=== PATIENT | male | born 1970 | race Two or more races ===

== ENCOUNTER 2020-03-05 06:17 | Outpatient (REF) | payer OTHER, SELFPAY ==
[2020-03-05 07:38] LABS: MANUAL DIFF FLAG NO
[2020-03-05 07:47] LABS: Basophils Percent Auto 0.4 % (0-2); Eosinophils Absolute Auto 0.2 X10*3/uL (0.0-0.4); Eosinophils Percent Auto 2.8 % (0-4); Hematocrit 42.5 % (42-52); Hemoglobin 13.9 g/dl (14.0-18.0); Imm Gran Abs Auto 0.02 X10*3/uL (0.00-0.03); Imm Gran Pct Auto 0.3 % (0.0-0.4); Lymphocytes Absolute Auto 2.2 X10*3/uL (1.2-4.9); Lymphocytes Percent Auto 31.7 % (20-40); Mean Corpuscular HGB Conc 32.7 g/dl (31.0-36.0); Mean Corpuscular Hemoglobin 28.8 pg (27.0-33.0); Mean Platelet Volume 10.7 fL (9.4-12.4); Monocytes Absolute Auto 0.7 X10*3/uL (0.1-1.2); Monocytes Percent Auto 9.5 % (2-11); Neutrophils Absolute Auto 3.8 X10*3/uL (2.0-8.3); Neutrophils Percent Auto 55.3 % (45-73); Platelet Count 198 X10*3/uL (160-400); Red Blood Count 4.83 X10*6/uL (4.60-5.80); Red Cell Distribution Width 14.7 % (11.0-16.0); White Blood Count 6.9 X10*3/uL (4.8-10.8)
[2020-03-05 08:18] LABS: Alanine Aminotransferase 26 U/L (0-40); Albumin Level 4.4 g/dL (3.5-5.0); Alkaline Phosphatase 75 U/L (39-117); Anion Gap 13 (12-20); Aspartate Amino Transferase 23 U/L (5-37); Bilirubin Total 0.5 mg/dL (0.0-1.0); Blood Urea Nitrogen 11 mg/dL (9-16); Calcium 8.9 mg/dL (8.4-10.2); Carbon Dioxide 28 mmol/L (22-29); Chloride 105 mmol/L (96-108); Cholesterol 97 mg/dL; Estimated Glomerular Filt Rate > 60; Glucose Fasting 103 mg/dL (60-99); HDL Cholesterol 31 mg/dL; LDL Cholesterol Calculated 56 mg/dl; Potassium 3.7 mmol/l (3.3-5.1); Sodium 142 mmol/L (135-145); Total Protein 7.2 g/dL (6.5-8.0); Triglycerides 54 mg/dL
[2020-03-05 08:34] LABS: Prostate Specific Antigen 0.59 ng/mL (<0.05-4.0); Thyroid Stimulating Hormone 1.93 mIU/mL (0.32-4.0)
== END 2020-03-05 06:18 | disposition home or self-care (01) ==
LOC: HO.LAB 06:17
PROVIDERS: Visit Provider Physician Assistant
DX: I10 Essential (primary) hypertension (principal); Z12.5 Encounter for screening for malignant neoplasm of prostate
CPT/HCPCS: 36415; 80053; 80061; 84153; 84443; 85025

== ENCOUNTER 2020-07-09 06:24 | Outpatient (REF) | payer OTHER, SELFPAY ==
[2020-07-09 07:17] LABS: MANUAL DIFF FLAG NO
[2020-07-09 07:27] LABS: Basophils Percent Auto 0.3 % (0-2); Eosinophils Absolute Auto 0.2 X10*3/uL (0.0-0.4); Eosinophils Percent Auto 2.4 % (0-4); Hematocrit 43.7 % (42-52); Hemoglobin 14.2 g/dl (14.0-18.0); Imm Gran Abs Auto 0.02 X10*3/uL (0.00-0.03); Imm Gran Pct Auto 0.3 % (0.0-0.4); Lymphocytes Absolute Auto 2.2 X10*3/uL (1.2-4.9); Lymphocytes Percent Auto 30.3 % (20-40); Mean Corpuscular HGB Conc 32.5 g/dl (31.0-36.0); Mean Corpuscular Hemoglobin 28.1 pg (27.0-33.0); Mean Corpuscular Volume 86.5 fL (80-98); Mean Platelet Volume 10.3 fL (9.4-12.4); Monocytes Absolute Auto 0.5 X10*3/uL (0.1-1.2); Monocytes Percent Auto 6.7 % (2-11); Neutrophils Absolute Auto 4.3 X10*3/uL (2.0-8.3); Platelet Count 212 X10*3/uL (160-400); Red Blood Count 5.05 X10*6/uL (4.60-5.80); Red Cell Distribution Width 14.4 % (11.0-16.0); White Blood Count 7.2 X10*3/uL (4.8-10.8)
[2020-07-09 07:35] LABS: Estimated Average Glucose 126 mg/dL; Hemoglobin A1C 151.3801 umol/L
[2020-07-09 07:50] LABS: Alanine Aminotransferase 37 U/L (0-40); Albumin Level 4.6 g/dL (3.5-5.0); Alkaline Phosphatase 90 U/L (39-117); Anion Gap 12 (12-20); Aspartate Amino Transferase 25 U/L (5-37); Bilirubin Total 0.6 mg/dL (0.0-1.0); Blood Urea Nitrogen 11 mg/dL (9-16); Calcium 9.3 mg/dL (8.4-10.2); Carbon Dioxide 28 mmol/L (22-29); Chloride 105 mmol/L (96-108); Cholesterol 119 mg/dL; Estimated Glomerular Filt Rate > 60; Glucose Fasting 110 mg/dL (60-99); HDL Cholesterol 36 mg/dL; LDL Cholesterol Calculated 69 mg/dl; Sodium 141 mmol/L (135-145); Total Protein 7.6 g/dL (6.5-8.0); Triglycerides 74 mg/dL
[2020-07-09 08:09] LABS: HBS Num1 39.66 mIU/mL (0-7.99); HIV AB/AG Nonreactive (Nonreactive); HIV Num 1 0.13 S/CO (0.00-0.99); ~Hepatitis B Surface Antibody REACTIVE (Nonreactive)
[2020-07-09 08:10] LABS: HBsAGNum1 0.18 S/CO (0.00-0.99); Hepatitis B Surface Antigen Negative (Negative); ~HepC Num1 0.11 S/CO (0.00-0.79); ~Hepatitis C Antibody Nonreactive (Nonreactive)
[2020-07-09 08:11] LABS: Syphilis Screen Nonreactive (Nonreactive)
[2020-07-09 08:13] LABS: TSH reflex Free T4 3.18 uIU/mL (0.32-4.0)
[2020-07-09 09:13] LABS: HBc Num2 11.47 S/CO; HBc Num3 11.58 S/CO; Hepatitis B Core Antibody Reactive (Nonreactive)
== END 2020-07-09 06:25 | disposition home or self-care (01) ==
LOC: HO.LAB 06:24
PROVIDERS: PCP Physician Assistant; Visit Provider Physician Assistant
DX: E78.00 Pure hypercholesterolemia, unspecified (principal); I10 Essential (primary) hypertension; Z11.3 Encounter for screening for infections with a predominantly sexual mode of transmission
CPT/HCPCS: 36415; 80053; 80061; 83036; 84443; 85025; 86704; 86706; 86780; 86803; 87340; 87389

== ENCOUNTER 2020-08-18 12:01 | Outpatient (REF) | payer OTHER, SELFPAY ==
[2020-08-18 12:20] LABS: COVID-19 Test Negative (Negative); IDNOW Serial# 08D9AD1C
== END 2020-08-18 12:02 | disposition home or self-care (01) ==
LOC: HO.LAB 12:01
PROVIDERS: Visit Provider Internal Medicine
DX: Z20.822 Contact with and (suspected) exposure to COVID-19 (principal)
CPT/HCPCS: 36415; 87635; C9803

== ENCOUNTER 2021-01-25 05:55 | Outpatient (REF) | payer OTHER, SELFPAY ==
[2021-01-25 07:49] LABS: Hematocrit 44.1 % (42-52); Hemoglobin 14.4 g/dl (14.0-18.0); Mean Corpuscular HGB Conc 32.7 g/dl (31.0-36.0); Mean Corpuscular Hemoglobin 28.2 pg (27.0-33.0); Mean Corpuscular Volume 86.5 fL (80-98); Mean Platelet Volume 10.8 fL (9.4-12.4); Platelet Count 203 X10*3/uL (160-400); Red Cell Distribution Width 14.5 % (11.0-16.0); White Blood Count 8.9 X10*3/uL (4.8-10.8)
[2021-01-25 07:59] LABS: Estimated Average Glucose 126 mg/dL; Hemoglobin A1C 151.7262 umol/L
[2021-01-25 08:15] LABS: Alanine Aminotransferase 27 U/L (0-40); Albumin Level 4.3 g/dL (3.5-5.0); Alkaline Phosphatase 88 U/L (39-117); Anion Gap 11 (12-20); Aspartate Amino Transferase 20 U/L (5-37); Bilirubin Total 0.8 mg/dL (0.0-1.0); Blood Urea Nitrogen 11 mg/dL (9-16); Calcium 9.1 mg/dL (8.4-10.2); Carbon Dioxide 27 mmol/L (22-29); Chloride 105 mmol/L (96-108); Cholesterol 97 mg/dL; Estimated Glomerular Filt Rate > 60; Glucose Fasting 105 mg/dL (60-99); HDL Cholesterol 32 mg/dL; LDL Cholesterol Calculated 51 mg/dl; Potassium 3.6 mmol/L (3.3-5.1); Sodium 139 mmol/L (135-145); Total Protein 7.2 g/dL (6.5-8.0); Triglycerides 74 mg/dL
[2021-01-25 10:13] LABS: Creatinine Urine 242.96 mg/dL; Microalbum/Creatinine Ratio Ur 116.4 ug/mg cr
== END 2021-01-25 05:56 | disposition home or self-care (01) ==
LOC: HO.LAB 05:55
PROVIDERS: PCP Physician Assistant; Visit Provider Physician Assistant
DX: I10 Essential (primary) hypertension (principal); R73.09 Other abnormal glucose
CPT/HCPCS: 36415; 80053; 80061; 82043; 83036; 85027

== ENCOUNTER → 2021-03-09 13:39 | Outpatient (REF) | payer OTHER, SELFPAY | LOC: HO.SL 13:39 | PROVIDERS: PCP Physician Assistant; Visit Provider Physician Assistant | DX: G47.33 Obstructive sleep apnea (adult) (pediatric) (principal) | CPT/HCPCS: 95806 ==

== ENCOUNTER → 2021-03-23 14:59 | Outpatient (BNVA) | payer OTHER, SELFPAY | PROVIDERS: PCP Physician Assistant; Visit Provider Internal Medicine | DX: G47.33 Obstructive sleep apnea (adult) (pediatric) (principal); G47.34 Idiopathic sleep related nonobstructive alveolar hypoventilation; E66.01 Morbid (severe) obesity due to excess calories; Z87.891 Personal history of nicotine dependence | CPT/HCPCS: 99202 ==

== ENCOUNTER 2021-05-08 10:52 | Emergency (ER) | payer OTHER, SELFPAY ==
--- NOTE | ~2021-05-08 | XR_ITS ---
EXAMINATION: XR HAND, RIGHT CLINICAL INFORMATION: Decreased range of motion and hand swelling COMPARISON: None TECHNIQUE: PA, lateral, and oblique views of the right hand. FINDINGS: The bones and soft tissues are normal. No fracture. Alignment is anatomic. Joint spaces are maintained. No erosions or soft tissue calcifications. XR/XR hand RT min 3V IMPRESSION: Normal right hand.
[2021-05-08 16:30] VITALS: BP 178/93; PULSE 76; TEMP 36.3; O2SAT 96; BMI 41.3
--- NOTE | 2021-05-08 17:32 | ED.EXTPRO ---
HPI - Extremity Problem General Chief complaint: Extremity Injury, Upper Stated complaint: Thumb pain Time Seen by Provider: 05/08/21 17:32 Source: patient Mode of arrival: ambulatory Limitations: no limitations History of Present Illness HPI Narrative: This is a 50-year-old male past medical history significant for coronary artery disease, obesity, hypertension, [place], hyperlipidemia presenting to the emergency department a concern of right-sided 1st digit swelling, pain warmth X2 days. Patient tells me that this started yesterday, all of a sudden and has been progressively worsening. He denies any trauma to the area. He tells me that he frequently works with his hands, and he has a lot of calluses and small little cuts on his hands. He is able to move finger however it is painful. No wrist pain. Patient denies fevers, chills, nausea, vomiting, chest pain, shortness of breath, weakness, abdominal pain. No hx of gout MD Complaint: joint swelling (right first digit ) and joint paint Onset (ago): day(s) (2) Pain Consistency: constant Location: right Severity scale (1-10): 5 Quality: aching and constant Radiation: none Relieving factors: nothing Exacerbating factors: nothing Associated symptoms: denies other symptoms Related Data Previous Rx's Medication Instructions Recorded clotrimazole-betamethasone 1 1 appl TOPICAL BID #45 g 04/20/20 %-0.05 % topical cream aspirin 81 mg tablet,delayed 81 mg PO DAILY 90 Days #90 tab 07/28/20 release atorvastatin 20 mg tablet 20 mg PO DAILY #90 tab 07/28/20 omeprazole 40 mg capsule,delayed 40 mg PO DAILY 90 Days #90 cap 07/28/20 release amlodipine 10 mg tablet 10 mg PO DAILY 90 Days #90 tab 11/11/20 blood pressure monitor (Blood #1 ea 11/11/20 Pressure Kit) metformin 500 mg tablet 500 mg PO DAILY 90 Days #90 tab 11/11/20 losartan 100 1 tab PO DAILY 90 Days #90 tab 02/14/21 mg-hydrochlorothiazide 12.5 mg tablet cephalexin 500 mg tablet 500 mg PO Q6H 10 Days #40 tab 05/08/21 doxycycline hyclate 100 mg capsule 100 mg PO BID 10 Days #20 cap 05/08/21 naproxen 500 mg tablet 500 mg PO BID PRN #14 tab 05/08/21 Allergies Allergy/AdvReac Type Severity Reaction Status Date / Time No Known Allergies Allergy Verified 03/23/21 15:07 [No Known Allergies*] Review of Systems Review of Systems: Constitutional : No Fever, No Chills, Cardiovascular : No Chest Pain, No SOB Respiratory : No Dyspnea Gastrointestinal : No abdominal pain Musculoskeletal : + Joint Swelling & pain Skin : No rash, No skin laceration, + errythema to right first digit Neuro : No Weakness, No Numbness Psych : No SI/HI Yes all other systems are reviewed and are negative [facility] [place] Past Medical History Attestation statement: The following information was validated with the patient. Source: old records reviewed and nursing notes reviewed Medical History Morbid obesity Nocturnal hypoxemia [place] (obstructive sleep apnea) Tinea Surgical History No pertinent past surgical history Family History Family History Mother Brain tumor Brother Substance abuse Social History Social History Housing: Apartment Alcohol intake: current Alcohol intake frequency: holidays/special occasions only Patient Tobacco Use Status: Former Tobacco user e-Cigarette/Vaping Use: Never Used Second Hand Smoke Exposure: Yes Advance Directives: No Advance Directives Information Provided: No service: No Current occupational status: employed 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 Not symptomatic Appearance: Alert.? Oriented X3.? No acute distress.? Head: Normocephalic, atraumatic, no step-offs or deformities Neck: Normal inspection.? Neck supple.? CVS: Normal heart rate and rhythm.? Pulses normal.? Respiratory: No respiratory distress.? Breath sounds normal.? Abdomen: Soft and nontender.? Skin: Skin warm and dry.? Normal skin color.? Normal skin turgor.? Extremities: 5/5 strength to bilateral upper and lower extremities + Right first digit appears edematous, erythematous and warm to the touch, full range of motion good capillary refill. Left digits within normal limits with full range of motion, no overlying skin changes. Bilateral wrists with full range of motion pain free. Back: No midline tenderness, no C-spine tenderness, full range of motion Course Reevaluation(s) Reevaluation #1: I will discharge patient home on Keflex and doxycycline for cellulitis. I have also advised him to take nonsteroidal anti-inflammatory medications. Patient is safe for discharge home with PCP follow-up. I have given him strict return precautions. Time: 17:57 MDM - Extremity (Nontraumatic) MDM Narrative Medical decision making narrative: 1750 50 yo male presents to ED with atraumatic right first digit pain, swelling, errythema and warmth. Upon PE the right first digit appears edematous, erythematous and warm to the touch, full range of motion good capillary refill. Left digits within normal limits with full range of motion, no overlying skin changes. Bilateral wrists with full range of motion pain free. VSS, slightly hypertensive. Prior to my exam an Xray had been ordered WNL. Medical Records Attestation: I reviewed the patient's medical records. Lab Data Attestation: I reviewed the patient's lab results. Imaging Data Right hand x-ray: Attestation: I personally reviewed and interpreted this imaging study as follows: Radiologist's impression: FINDINGS: The bones and soft tissues are normal. No fracture. Alignment is anatomic. Joint spaces are maintained. No erosions or soft tissue calcifications.? XR/XR hand RT min 3V IMPRESSION: Normal right hand. Critical Care Time Critical Care Time Critical Care Time: No Discharge Plan Discharge Clinical Impression: Cellulitis Patient Disposition: Home, Self-Care Instructions: Cellulitis (ED), Warm Compress or Soak (ED) Additional Instructions: Take your medications as prescribed. If you were prescribed antibiotics today, it is important that you take your medication to their entirety, do not skip any doses, do not finish them early. Follow-up with your primary care provider this week. Return to the emergency department with new or worsening symptoms. In case of emergency call 911 Prescriptions: New doxycycline hyclate 100 mg capsule 100 mg PO BID 10 Days Qty: 20 RF: 0 cephalexin 500 mg tablet 500 mg PO Q6H 10 Days Qty: 40 RF: 0 naproxen 500 mg tablet 500 mg PO BID PRN (Reason: pain) Qty: 14 RF: 0 No Action clotrimazole-betamethasone 1-0.05 % cream 1 appl topical BID Qty: 45 RF: 1 losartan-hydrochlorothiazide 100-12.5 mg tablet 1 tab PO DAILY 90 Days Qty: 90 RF: 2 omeprazole 40 mg capsule,delayed release(DR/EC) 40 mg PO DAILY 90 Days Qty: 90 RF: 2 atorvastatin 20 mg tablet 20 mg PO DAILY Qty: 90 RF: 2 aspirin 81 mg tablet,delayed release (DR/EC) 81 mg PO DAILY 90 Days Qty: 90 RF: 2 amlodipine 10 mg tablet 10 mg PO DAILY 90 Days Qty: 90 RF: 1 metformin 500 mg tablet 500 mg PO DAILY 90 Days Qty: 90 RF: 2 (DME) blood pressure monitor [Blood Pressure Kit] Kit See Rx Instructions .ROUTE .MEDSUPPLY Qty: 1 RF: 0 Referrals: Husam Beatty PA-C [Primary Care Provider] - 2 days Stand Alone Forms: Work/School Release
[2021-05-08 18:38] LABS: COVID-19 Test Negative (Negative)
== END 2021-05-08 18:52 | disposition home or self-care (01) ==
LOC: HO.ED 17:56
PROVIDERS: Emergency Provider Emergency Medicine Emergency Medical Services; PCP Physician Assistant
DX: L03.011 Cellulitis of right finger (principal); M79.644 Pain in right finger(s); I10 Essential (primary) hypertension
CPT/HCPCS: 36415; 73130; 87635; 99283

== ENCOUNTER → 2021-07-01 20:51 | Outpatient (REF) | payer OTHER, SELFPAY | LOC: HO.SL 20:51 | PROVIDERS: PCP Physician Assistant; Visit Provider Physician Assistant | DX: G47.33 Obstructive sleep apnea (adult) (pediatric) (principal); G47.34 Idiopathic sleep related nonobstructive alveolar hypoventilation | CPT/HCPCS: 95811 ==

== ENCOUNTER 2022-01-06 06:23 | Outpatient (REF) | payer OTHER, SELFPAY ==
[2022-01-06 07:21] LABS: Hematocrit 44.1 % (42.0-52.0); Hemoglobin 14.3 g/dl (14.0-18.0); Mean Corpuscular HGB Conc 32.4 g/dl (31.0-36.0); Mean Corpuscular Hemoglobin 27.9 pg (27.0-33.0); Mean Corpuscular Volume 86.1 fL (80.0-98.0); Mean Platelet Volume 10.4 fL (9.4-12.4); Platelet Count 215 X10*3/uL (160-400); Red Blood Count 5.12 X10*6/uL (4.60-5.80); Red Cell Distribution Width 14.7 % (11.0-16.0); White Blood Count 8.7 X10*3/uL (4.8-10.8)
[2022-01-06 07:44] LABS: Alanine Aminotransferase 30 U/L (0-40); Albumin Level 4.3 g/dL (3.5-5.0); Alkaline Phosphatase 87 U/L (39-117); Anion Gap 15 (12-20); Aspartate Amino Transferase 22 U/L (5-37); Bilirubin Total 0.6 mg/dL (0.0-1.0); Blood Urea Nitrogen 9 mg/dL (9-16); Calcium 8.8 mg/dL (8.4-10.2); Carbon Dioxide 28 mmol/L (22-29); Chloride 101 mmol/L (96-108); Cholesterol 95 mg/dL; Estimated Glomerular Filt Rate > 60; Glucose Fasting 121 mg/dL (60-99); HDL Cholesterol 34 mg/dL; LDL Cholesterol Calculated 45 mg/dl; Potassium 3.7 mmol/L (3.3-5.1); Sodium 140 mmol/L (135-145); Total Protein 7.3 g/dL (6.5-8.0); Triglycerides 82 mg/dL
[2022-01-06 07:48] LABS: Estimated Average Glucose 126 mg/dL
[2022-01-06 08:07] LABS: Prostate Specific Antigen Scr 0.69 ng/mL (<0.05-4.0); TSH reflex Free T4 1.83 uIU/mL (0.32-4.0)
== END 2022-01-06 06:24 | disposition home or self-care (01) ==
LOC: HO.LAB 06:23
PROVIDERS: PCP Physician Assistant; Visit Provider Physician Assistant
DX: Z12.5 Encounter for screening for malignant neoplasm of prostate (principal); I10 Essential (primary) hypertension; E78.00 Pure hypercholesterolemia, unspecified; R73.09 Other abnormal glucose
CPT/HCPCS: 36415; 80053; 80061; 83036; 84153; 84443; 85027

== ENCOUNTER 2022-07-06 06:54 | Outpatient (REF) | payer OTHER, SELFPAY ==
[2022-07-06 08:12] LABS: Alanine Aminotransferase 25 U/L (0-40); Albumin Level 4.4 g/dL (3.5-5.0); Alkaline Phosphatase 96 U/L (39-117); Anion Gap 16 (12-20); Aspartate Amino Transferase 18 U/L (5-37); Bilirubin Total 0.5 mg/dL (0.0-1.0); Blood Urea Nitrogen 15 mg/dL (9-16); Calcium 9.5 mg/dL (8.4-10.2); Carbon Dioxide 28 mmol/L (22-29); Chloride 104 mmol/L (96-108); Cholesterol 108 mg/dL; Estimated Glomerular Filt Rate > 60; Glucose Fasting 108 mg/dL (60-99); HDL Cholesterol 22 mg/dL; LDL Cholesterol Calculated 41 mg/dl; Potassium 3.8 mmol/L (3.3-5.1); Sodium 144 mmol/L (135-145); Total Protein 7.4 g/dL (6.5-8.0); Triglycerides 226 mg/dL
[2022-07-06 08:18] LABS: TSH reflex Free T4 2.77 uIU/mL (0.32-4.0)
== END 2022-07-06 06:55 | disposition home or self-care (01) ==
LOC: HO.LAB 06:54
PROVIDERS: PCP Physician Assistant; Visit Provider Nurse Practitioner Family
DX: E78.5 Hyperlipidemia, unspecified (principal); R73.09 Other abnormal glucose; I10 Essential (primary) hypertension
CPT/HCPCS: 36415; 80053; 80061; 84443

== ENCOUNTER 2022-08-07 06:24 | Outpatient (REF) | payer OTHER, SELFPAY ==
[2022-08-07 08:13] LABS: Estimated Average Glucose 134 mg/dL; Hemoglobin A1c % 6.3 %
[2022-08-07 08:28] LABS: Creatinine Urine 219.67 mg/dL; Microalbum/Creatinine Ratio Ur 182.5 ug/mg cr
[2022-08-07 08:36] LABS: Alanine Aminotransferase 44 U/L (0-40); Albumin Level 4.3 g/dL (3.5-5.0); Alkaline Phosphatase 78 U/L (39-117); Anion Gap 14 (12-20); Aspartate Amino Transferase 38 U/L (5-37); Bilirubin Total 0.6 mg/dL (0.0-1.0); Blood Urea Nitrogen 9 mg/dL (9-16); Calcium 9.2 mg/dL (8.4-10.2); Carbon Dioxide 27 mmol/L (22-29); Chloride 104 mmol/L (96-108); Cholesterol 90 mg/dL; Estimated Glomerular Filt Rate > 60; Glucose Fasting 113 mg/dL (60-99); HDL Cholesterol 25 mg/dL; LDL Cholesterol Calculated 50 mg/dl; Potassium 3.6 mmol/L (3.3-5.1); Sodium 141 mmol/L (135-145); Triglycerides 78 mg/dL
== END 2022-08-07 06:25 | disposition home or self-care (01) ==
LOC: HO.LAB 06:24
PROVIDERS: Absent Provider Physician Assistant; PCP Physician Assistant; Visit Provider Nurse Practitioner Family
DX: K21.9 Gastro-esophageal reflux disease without esophagitis (principal); R73.03 Prediabetes
CPT/HCPCS: 36415; 80053; 80061; 82043; 83036; 87338

== ENCOUNTER 2022-09-29 07:46 | Outpatient (REF) | payer OTHER, SELFPAY ==
--- NOTE | ~2022-09-29 | US_ITS ---
EXAMINATION: ULTRASOUND RENAL WITH DOPPLER CLINICAL INFORMATION: Difficult to control hypertension. Evaluate for renal artery stenosis. COMPARISON: None. TECHNIQUE: Real-time grayscale, color Doppler, and duplex Doppler evaluation of the kidneys and renal vasculature was performed. FINDINGS: RENAL MEASUREMENTS: Right: 12.9 x 7.1 x 6.3 cm (Sag x AP x TV) Left: 13.2 x 7.0 x 5.2 cm (Sag x AP x TV) RIGHT KIDNEY: The kidney is normal in size, contour, and echogenicity. Renal cortical thickness is normal. No renal calculi or hydronephrosis. There is a 1.5 cm simple cyst in the medial kidney. No follow-up imaging recommended. LEFT KIDNEY: The kidney is normal in size, contour, and echogenicity. Renal cortical thickness is normal. No renal calculi or hydronephrosis. 1.9 cm simple cyst in the upper kidney. No follow-up imaging is recommended. 7.6 cm incompletely characterized septated cyst in the lower kidney. DOPPLER INTERROGATION: Aorta: 119 cm/sec Right Main Renal Artery: Proximal: 66 cm/sec Mid: 122 cm/sec Distal: 52 cm/sec Left Main Renal Artery: Proximal: 133 cm/sec Mid: 117 cm/sec Distal: 81 cm/sec Renal-Aortic Ratio (RAR): Right: Aortic velocity greater than 100 cm/s so renal aortic ratio not used. Left: Aortic velocity greater than 100 cm/s so renal aortic ratio not used. Segmental Resistive Indices: Right: 0.58-0.66. Left: 0.63-0.73. Renal Veins: Right: Patent with normal waveform. Left: Patent with normal waveform. US/US renal doppler IMPRESSION: No evidence of hemodynamically significant renal artery stenosis. 7.6 cm incompletely characterized septated cyst in the lower kidney. Recommend further evaluation with MRI or CT of the abdomen without and with contrast for Bosniak classification to guide subsequent management.
--- NOTE | ~2022-09-29 | US_ITS ---
EXAMINATION: ULTRASOUND RENAL WITH DOPPLER CLINICAL INFORMATION: Difficult to control hypertension. Evaluate for renal artery stenosis. COMPARISON: None. TECHNIQUE: Real-time grayscale, color Doppler, and duplex Doppler evaluation of the kidneys and renal vasculature was performed. FINDINGS: RENAL MEASUREMENTS: Right: 12.9 x 7.1 x 6.3 cm (Sag x AP x TV) Left: 13.2 x 7.0 x 5.2 cm (Sag x AP x TV) RIGHT KIDNEY: The kidney is normal in size, contour, and echogenicity. Renal cortical thickness is normal. No renal calculi or hydronephrosis. There is a 1.5 cm simple cyst in the medial kidney. No follow-up imaging recommended. LEFT KIDNEY: The kidney is normal in size, contour, and echogenicity. Renal cortical thickness is normal. No renal calculi or hydronephrosis. 1.9 cm simple cyst in the upper kidney. No follow-up imaging is recommended. 7.6 cm incompletely characterized septated cyst in the lower kidney. DOPPLER INTERROGATION: Aorta: 119 cm/sec Right Main Renal Artery: Proximal: 66 cm/sec Mid: 122 cm/sec Distal: 52 cm/sec Left Main Renal Artery: Proximal: 133 cm/sec Mid: 117 cm/sec Distal: 81 cm/sec Renal-Aortic Ratio (RAR): Right: Aortic velocity greater than 100 cm/s so renal aortic ratio not used. Left: Aortic velocity greater than 100 cm/s so renal aortic ratio not used. Segmental Resistive Indices: Right: 0.58-0.66. Left: 0.63-0.73. Renal Veins: Right: Patent with normal waveform. Left: Patent with normal waveform. US/US renal BI IMPRESSION: No evidence of hemodynamically significant renal artery stenosis. 7.6 cm incompletely characterized septated cyst in the lower kidney. Recommend further evaluation with MRI or CT of the abdomen without and with contrast for Bosniak classification to guide subsequent management.
== END 2022-09-29 07:47 | disposition home or self-care (01) ==
LOC: HO.US 07:46
PROVIDERS: PCP Physician Assistant; Visit Provider Physician Assistant
DX: I10 Essential (primary) hypertension (principal); Z79.899 Other long term (current) drug therapy
CPT/HCPCS: 76775; 93975

== ENCOUNTER → 2022-11-01 10:10 | Outpatient (BNVA) | payer OTHER, SELFPAY | PROVIDERS: PCP Physician Assistant; Visit Provider Urology | DX: N28.1 Cyst of kidney, acquired (principal) | CPT/HCPCS: 99202 ==

== ENCOUNTER 2022-11-20 16:08 | Outpatient (AMB) | payer OTHER, SELFPAY ==
--- NOTE | 2022-11-20 16:09 | A.OFFPC_ITS ---
Vital Signs 11/20/22 16:10 Height 5 ft 9 in Weight 301 lb BMI 44.4 BP 142/90 H Blood Pressure Location Lt brachial Position Sitting Pulse 80 Pulse Source Pulse Oximeter Temp Source Skin Pulse Oximetry (%) 96 Oxygen Delivery Method Room Air Intake Visit Reasons: PE Intake Note: Patient is here today for a physical. 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 Required: No Allergies No Known Allergies [No Known Allergies*] Allergy (Verified 11/20/22 16:23) Medication List - Last Reconciled 11/20/22 by Husam Beatty PA-C amlodipine 10 mg PO DAILY 90 days aspirin 81 mg PO DAILY 90 days atorvastatin 20 mg PO DAILY blood pressure kit-extra large As directed CPAP (CPAP Machine/Device) As directed doxazosin 2 mg PO DAILY 90 days losartan-hydrochlorothiazide 100-25 mg 1 tab PO DAILY 90 days metformin 500 mg PO DAILY 90 days omeprazole 40 mg PO DAILY 90 days Tobacco use date assessed: 11/20/22 Dental Screening Dental Screen Date: 11/20/22 Did you have a dental visit in the last 12 months?: No Did you have a dental problem in the last 6 months where you did not have access to dental care?: No HPI PE HPI Details Patient is a 52-year-old male here today for routine annual physical. ? Patient has a past medical history significant for HTN, CAD, obesity, GERD, Recently found to have a complex renal cyst on recent ultrasound, has followed up with Urology in recommend CT abdomen pelvis for further evaluation. Of does does have microalbuminuria .. ? Obesity:? he reports he has been trying to be more physically active and deaf to better eating habits.? Has lost a small amount of weight since last visit. He has been struggling with nighttime snacking.? unfortunately has been unable to lose any weight since last visit. ? . Hypertension:? Blood pressure slightly elevated today in office though has improved..? Recently started doxazosin 2 mg which has been effective. Unfortunately has not been able to reduce his weight as he has stopped going to the gym. Otherwise denies any chest pain, vision issues, headaches or shortness of breath on exertion. ? .. ? CAD:? Has been feeling well without any chest discomfort, shortness of breath on exertion. ?Patient does report being hospitalized years ago for chest pain and was told he had coronary artery blockage. Thus he was placed on statin therapy and aspirin. .. GERD:? Use omeprazole on a daily basis with good effect. ? .. ? [place]: ? Patient's most recent sleep study showing severe obstructive sleep apnea- titration study showing need for CPAP Now in contact with [facility].? Does have CPAP machine at home though does admit he has only been fairly compliant with its use. .. Colonoscopy :? Had a colonoscopy in 2019 Dr Miller- normal repeat in 10yrs? ( 2028) .. Vaccine:? Up-to-date with tetanus vaccine, Decline COVID Vaccine, UTD PCV Laboratory Tests 01/25/21 08/07/22 08/07/22 06:35 06:35 06:37 Creatinine 0.82 Fasting Glucose 113 H Hemoglobin A1c % AST 38 H ALT 44 H LDL Cholesterol, C alc 50 Urine Microalbumin 283.0 401.0 Stool H. pylori Ag 08/07/22 08/07/22 06:37 08:32 Creatinine Fasting Glucose Hemoglobin A1c % 6.3 AST ALT LDL Cholesterol, C alc Urine Microalbumin Stool H. pylori Ag SEE NOTE A ?? 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 1. Little interest or pleasure in doing things: not at all 2. Feeling down, depressed, or hopeless: not at all 3. Trouble falling or staying asleep, or sleeping too much: not at all 4. Feeling tired or having little energy: not at all 5. Poor appetite or overeating: not at all 6. Feeling bad about yourself - or that you are a failure or have let yourself or your family down: not at all 7. Trouble concentrating on things, such as reading the newspaper or watching television: not at all 8. Moving or speaking so slowly that other people could have noticed. Or the opposite - being so fidgety or restless that you have been moving around a lot more than usual: not at all 9. Thoughts that you would be better off or of hurting yourself in some way: not at all Total score: 0 Depression Screening Interpretation: Negative Source: Developed by Drs. Clint Aguilar, Ellie Arteaga, Daron Decker and colleagues, with an educational alfonso from [employer]. Thrive Questionnaire Date Thrive assessed: 11/20/22 I am a: Patient What is your living situation today?: I have a steady place to live Within the past 12 months, did the food you bought not last and you didn't have the money to get more?: Never true Within the past 12 months, did you worry whether your food would run out before you got money to buy more?: Never true AUDIT C Alcohol Use Questionnaire (AUDIT-C) 1. How often do you have a drink containing alcohol?: Monthly or less 2. How many drinks containing alcohol do you have on a typical day when you are drinking?: 1 or 2 3. How often do you have six or more drinks on one occasion?: Never Total Score: 1 Score Reviewed/Action Taken: No MARGRET-7 AMB Questionnaire MARGRET-7 Date MARGRET - 7 assessed: 11/20/22 Feeling nervous, anxious, or on edge: 0 = Not at all Not being able to stop or control worryin = Not at all Worrying too much about different things: 0 = Not at all Trouble relaxin = Not at all Being so restless that it is hard to sit still: 0 = Not at all Becoming easily annoyed or irritable: 0 = Not at all Feeling afraid as if something awful might happen: 0 = Not at all Total MARGRET-7 score (0-4 normal; 5-9 mild; 10-14 moderate; 15-21 severe): 0 Source: Developed by Drs. Clint Aguilar, Ellie Arteaga, Daron Decker and colleagues, with an educational alfonso from [employer]. Review of Systems Const Denies body aches, Denies chills, Denies excessive sweating, Denies fatigue, Denies fever(s) and Denies headache(s) Eyes Denies blurry vision ENT Denies dysphagia, Denies vertigo, Denies dizziness, Denies headache(s), Denies hearing loss and Denies tinnitus Card Denies chest pain, Denies chest pain with activity, Denies syncope, Denies irregular heart rhythm and Denies dyspnea Resp Denies chest congestion, Denies cough, Denies hemoptysis, Denies dyspnea and Denies wheezing GI Denies abdominal pain, Denies melena, Denies hematochezia, Denies coffee ground emesis, Denies dysphagia, Denies diarrhea, Denies nausea and Denies vomiting Denies difficulty urinating, Denies dysuria, Denies urinary frequency, Denies urinary hesitancy and Denies urinary urgency Musc Denies arthralgias, Denies limited range of motion, Denies muscle cramps and Denies muscle weakness Skin/Breast Denies rash and Denies skin ulcer Neuro Denies Abnormal speech present, Denies confusion, Denies vertigo, Denies d izziness, Denies syncope, Denies headache(s), Denies memory loss and Denies seizure-like activity Psych Denies anxiety, Denies confusion, Denies depression, Denies memory loss, Denies panic attacks and Denies paranoia Endo Denies excessive sweating, Denies fatigue, Denies flushing, Denies polydipsia and Denies polyuria Aller/Immun Denies wheezing Physical exam (Primary Care) Vital Signs: Last Vital Signs Pulse 80 11/20/22 16:10 BP 142/90 H 11/20/22 16:10 Pulse Ox 96 11/20/22 16:10 Oxygen Delivery Method Room Air 11/20/22 16:10 BMI result Body Mass Index 44.4 BMI Assessment/Plan discussion: High Tobacco/Smoking Status: Tobacco use Status Tobacco use date assessed 11/20/22 11/20/22 16:14 Patient Tobacco Use Status Former Tobacco user 11/20/22 16:14 e-Cigarette/Vaping Use Never Used 11/20/22 16:14 PHQ-9: PHQ-9 Score PHQ-9: Total score 0 11/20/22 16:25 Depression Screening Interpretation: Negative Thrive Assessment: Date of Thrive Assessment Date Thrive assessed 11/20/22 11/20/22 16:14 Const Other: OBESE General: cooperative, comfortable, no acute distress, alert and awake; No confusion Orientation/consciousness: oriented to person, oriented to place, patient oriented x3 and No confusion HENMT Head: Yes normocephalic Ears: external ears normal and TM's normal bilaterally Face and sinus: No sinus tenderness Mouth: Normal oral and palatal mucosa present and tongue normal Teeth and gingiva: dentition normal and gingiva normal Throat: Yes posterior oropharynx normal, Yes tonsils normal and Yes uvula midline Eyes Conjunctivae: conjunctivae normal Sclerae: sclerae normal Pupils: Equal, round and reactive pupils present EOM: EOMs intact bilaterally Direct Ophthalmoscopy: No no photophobia Neck Neck: Yes no lymphadenopathy, No tender and Yes no JVD Thyroid: Thyroid normal Carotids: no bruits Chest Chest palpation & inspection: no tenderness Resp Effort & Inspection: normal respiratory effort, no audible wheezes, not labored and no stridor Auscultation: no crackles, no rales, no rhonchi and no wheezes Cardio Jugular venous distension: no JVD Rate: regular rate, not bradycardic and not tachycardic Rhythm: regular rhythm Bruits: no carotid bruits Peripheral pulses: Peripheral pulses 2+ throughout GI Inspection: Yes normal to inspection, No abdominal wall ecchymosis and No visible herniation Palpation (GI): Soft to palpation, nontender, no guarding, not rigid and No hepatosplenomegaly present Auscultation: normoactive bowel sounds General: Yes no CVA tenderness Back/Spine/Pelvis Back: no CVA tenderness and No back tenderness Cervical Spine: cervical ROM normal Thoracic/Lumbar Spine: thoracic and lumbar spine normal to inspection, straight leg raise negative bilaterally, No thoraco-lumbar ROM limited and No lumbar spinal tenderness Skin Lesions: no lesions Rashes: no rashes Wounds: no wounds Neuro General: oriented to person, oriented to place, patient oriented x3, CN's II-XI intact bilaterally and No confusion Cranial nerves: Yes Equal, round and reactive pupils present and Yes Normal accommodation reflex present Cognition (Neuro): normal cognition Speech: No Abnormal speech present Gait exam (Neuro): Normal gait present Motor exam (neuro): 5/5 motor strength present throughout Extrem Right upper extremity: full ROM; no cyanosis Left upper extremity: full ROM; no cyanosis Right lower extremity: no edema Left lower extremity: no edema Psych Appearance: grossly normal Mental Status: mental status grossly normal Affect: normal affect Attitude: cooperative Thought process: Normal thought process present Results AMB Hemoglobin A1c AMB Hemoglobin A1c 5.9 % Last Edit by CHARLIE Howard on 11/20/22 16:25 Results Reviewed Results Reviewed: Laboratory Last Values Hgb A1c (Clinic) 5.9 % (4.0-6.0) 11/20/22 16:15 Assessment and Plan Assessment & Plan (1) Annual physical exam: Code(s): Z00.00 - Encounter for general adult medical examination without abnormal find ings (2) CAD (coronary artery disease): Code(s): I25.10 - Atherosclerotic heart disease of nondalton coronary artery without angina pectoris Qualifiers: Associated angina: without angina Coronary Disease-Associated Artery/Lesion type: nondalton artery [place] vs. transplanted heart: nondalton heart Qualified Code(s): I25.10 - Atherosclerotic heart disease of nondalton coronary artery without angina pectoris Plan: As per HPI, patient has history coronary artery disease. Will continue to follow lipids with goal LDL to be below 70 (3) Impaired glucose metabolism: Code(s): R73.09 - Other abnormal glucose Plan: Patient prediabetic, continues on metformin 500 daily. Patient continues to have slightly elevated fasting blood sugar. Will continue to follow fasting blood sugar and A1c (4) [place] (obstructive sleep apnea): Code(s): G47.33 - Obstructive sleep apnea (adult) (pediatric) Plan: Patient does have CPAP machine at home though is fairly compliant with the nightly use of the CPAP machine. (5) HLD (hyperlipidemia): Code(s): E78.5 - Hyperlipidemia, unspecified Qualifiers: Hyperlipidemia type: pure hypercholesterolemia Qualified Code(s): E78.00 - Pure hypercholesterolemia, unspecified Plan: Will continue statin therapy as is with goal LDL to be below 70 (6) HTN (hypertension): Code(s): I10 - Essential (primary) hypertension Qualifiers: Hypertension type: essential hypertension Qualified Code(s): I10 - Essential (primary) hypertension Plan: Patient's blood pressure slightly elevated today in office, since starting doxazosin blood pressures have been better. Does not monitor blood pressures at home and advised to do so. Goal blood pressure be below 140/90. Will consider increasing doxazosin dose to 4 mg for better blood pressure control if blood pressure is elevated at home. (7) Microalbuminuria: Code(s): R80.9 - Proteinuria, unspecified Plan: Continues to have microalbuminuria ? Related to his complex renal cyst versus uncontrolled blood pressure (8) Complex renal cyst: Code(s): N28.1 - Cyst of kidney, acquired Plan: Has followed up with Urology in does have a complex cyst in his left kidney and is due for CT of abdomen for better evaluation. (9) Ingrown nail: Code(s): L60.0 - Ingrowing nail Plan: Has ingrown toenail and has been trying to self treat at home though has been unsuccessful, would like to see Podiatry for evaluation and treatment. (10) Morbid obesity with BMI of 40.0-44.9, adult: Code(s): E66.01 - Morbid (severe) obesity due to excess calories; Z68.41 - Body mass index [BMI] 40.0-44.9, adult Plan: Patient does understand his BMI is over 40 and will work on being more physically active and adapting to better eating habits to reduce his weight. Orders: Orders Comprehensive [place]. Panel Fast 4 Months I10 - Essential (primary) hypertension Lipid Panel 4 Months I25.10 - Atherosclerotic heart disease of nondalton coronary artery without angina pectoris Prostate Specific Antigen Scr 4 Months I10 - Essential (primary) hypertension, Z12.5 - Encounter for screening for malignant neoplasm of prostate Microalbumin, Random (w Creat) 4 Months I10 - Essential (primary) hypertension Complete Blood Count no Diff 4 Months I10 - Essential (primary) hypertension AMB Hemoglobin A1c 11/20/22 Z13.9 - Encounter for screening, unspecified Referrals Podiatry Referral L60.0 - Ingrowing nail Coding Level of Care Code Est Pt Prev Care 40-64y(14571) Diagnoses Annual physical exam Z00.00 CAD (coronary artery disease) I25.10 Associated angina: without angina Coronary Disease-Associated Artery/Lesion type: nondalton artery [place] vs. transplanted heart: nondalton heart Impaired glucose metabolism R73.09 [place] (obstructive sleep apnea) G47.33 HLD (hyperlipidemia) E78.00 Hyperlipidemia type: pure hypercholesterolemia HTN (hypertension) I10 Hypertension type: essential hypertension Microalbuminuria R80.9 Complex renal cyst N28.1 Ingrown nail L60.0 Morbid obesity with BMI of 40.0-44.9, adult E66.01; Z68.41
[2022-11-20 16:10] VITALS: BP 142/90; PULSE 80; O2SAT 96; BMI 44.4
== END 2022-11-20 16:59 | disposition home or self-care (01) ==
PROVIDERS: PCP Physician Assistant; Visit Provider Physician Assistant
DX: Z00.00 Encounter for general adult medical examination without abnormal findings (principal); I10 Essential (primary) hypertension; E66.01 Morbid (severe) obesity due to excess calories; Z68.41 Body mass index [BMI] 40.0-44.9, adult; I25.10 Atherosclerotic heart disease of native coronary artery without angina pectoris; R73.09 Other abnormal glucose; G47.33 Obstructive sleep apnea (adult) (pediatric); R80.9 Proteinuria, unspecified; E78.00 Pure hypercholesterolemia, unspecified; N28.1 Cyst of kidney, acquired; L60.0 Ingrowing nail
CPT/HCPCS: 83036; 99396

== ENCOUNTER 2023-01-01 09:27 | Outpatient (REF) | payer OTHER, SELFPAY ==
--- NOTE | ~2023-01-01 | CT_ITS ---
EXAMINATION: CT ABDOMEN WITHOUT AND WITH CONTRAST CLINICAL INFORMATION: Renal cyst COMPARISON: 09/29/2022 TECHNIQUE: Contiguous axial thin section helical images of the abdomen were performed before and after the administration of oral contrast and 85 mL of Omnipaque 350 intravenous contrast. The data set was reformatted in the coronal and sagittal planes and reviewed on an independent workstation. This CT examination was performed using dose optimization techniques as appropriate, variously including the following: *Automated exposure control *Adjustment of mA and/or kV according to patient size (this includes techniques or standardized protocols for targeted exams where dose is matched to indication/reason for exam; i.e. extremities or head) *Use of iterative reconstruction technique DLP: 956 mGy-cm FINDINGS: CUSHION COVER INSPECTOR: Nonobstructive bowel pattern. LUNG BASES: Dependent atelectasis. Prominent heart. No pericardial effusion. LIVER, GALLBLADDER, AND BILIARY TREE: Enlarged, low density liver with focal sparing around the gallbladder fossa. Unremarkable gallbladder. PANCREAS: Unremarkable. SPLEEN: Prominent at 13.4 cm. ADRENAL GLANDS: Mildly hypertrophic left adrenal gland. KIDNEYS: Left kidney measures 13.4 cm, right kidney measures 12.5 cm. Bilateral renal cysts are seen. On the right measuring 1.6 cm, on the left measuring 1.7 and 7.1 cm. The larger of the left renal cysts demonstrated internal septation on recent ultrasound which is not perceptible on this CT. No abnormal enhancement present. GI/BOWEL LOOPS: Small hiatal hernia Decompressed stomach. Nonobstructive bowel pattern. Unremarkable terminal ileum and appendix.. ABDOMINAL WAL: Fat filled umbilical hernia. LYMPH NODES: Normal. VASCULAR: Unremarkable. BONES: Unremarkable. CT/CT abdomen wo/w IV con IMPRESSION: Bilateral renal cysts, largest on the left measuring 7.[address] with [address] CT features. Enlarged fatty liver and mild splenomegaly. Fleischner guidelines were followed.
[2023-01-02 06:44] LABS: Creatinine POC 0.6 mg/dL (0.5-1.4); GFR POC > 60
== END 2023-01-01 09:28 | disposition home or self-care (01) ==
LOC: HO.CT 09:27
PROVIDERS: PCP Physician Assistant; Visit Provider Urology
DX: N28.1 Cyst of kidney, acquired (principal)
CPT/HCPCS: 74170; 82565

== ENCOUNTER 2023-01-10 15:12 | Outpatient (AMB) | payer OTHER, SELFPAY ==
--- NOTE | 2023-01-10 12:07 | MHC.OFFVIS ---
Intake Intake Visit Reasons: 10w/CT Intake Note: Patient presents today for a follow-up on CT scan results completed on 01/01/2023: Meds- None Allergies to Antibiotic- No Known Allergies Blood Thinner- Aspirin Allergies No Known Allergies [No Known Allergies*] Allergy (Verified 01/10/23 15:15) HPI HPI Comments History of Present Illness Details Darwin is a 52-year-old male who presents today to the office for a follow-up. 01/10/2023? Darwin was last seen by me on 11/01/[address] cyst. CT of the abdomen with/without IV contrast was ordered. He has past medical history of hypertension, on metformin for pre-diabetes, Obesity. He denies any other new concerns or complaints at this time. I reviewed the CTAP-w/wo IV contrast results from 01/01/2023 revealed bilateral renal cysts, largest on the left measuring 7.1 cm with no suspicious CT features. Review of charts: Last visit: 11/01/2022? Renal US results reviewed?09/29/22-- 7.6 cm incompletely characterized septated cyst in the lower left kidney. PSA--01/06/22--0.69. 01/11/2032: Plan: CAT scan results were reviewed with the patient in detail. Renal cysts meet criteria of benign cysts Follow up as needed. 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 Cognitive needs: No Hearing needs: No Vision needs: No Review of Systems Const All systems reviewed & are unremarkable except as noted in HPI and below Reports no additional complaints Eyes Reports no additional complaints ENT Denies neck pain Card Denies leg edema Resp Denies cough GI Denies constipation Musc Reports no additional complaints and Denies neck pain Skin/Breast Denies rash and Denies unusual bruising Neuro Reports no additional complaints Psych Reports no additional complaints Endo Reports no additional complaints Albert/Lymph Reports no additional complaints Aller/Immun Reports no additional complaints Results Reviewed Results Reviewed: Date of Service: 01/01/23 EXAMINATION: CT ABDOMEN WITHOUT AND WITH CONTRAST CLINICAL INFORMATION: Renal cyst? COMPARISON: 09/29/2022 FINDINGS: REFERENCE INVESTIGATOR: Nonobstructive bowel pattern. LUNG BASES: Dependent atelectasis. Prominent heart. No pericardial effusion. LIVER, GALLBLADDER, AND BILIARY TREE: Enlarged, low density liver with focal sparing around the gallbladder fossa. Unremarkable gallbladder.? PANCREAS: Unremarkable.? SPLEEN: Prominent at 13.4 cm.? ADRENAL GLANDS: Mildly hypertrophic left adrenal gland. KIDNEYS: Left kidney measures 13.4 cm, right kidney measures 12.5 cm. Bilateral renal cysts are seen. On the right measuring 1.6 cm, on the left measuring 1.7 and 7.1 cm. The larger of the left renal cysts demonstrated internal septation on recent ultrasound which is not perceptible on this CT. No abnormal enhancement present. GI/BOWEL LOOPS: Small hiatal hernia Decompressed stomach. Nonobstructive bowel pattern. Unremarkable terminal ileum and appendix.. ABDOMINAL WAL: Fat filled umbilical hernia. LYMPH NODES: Normal. VASCULAR: Unremarkable. BONES: Unremarkable.? IMPRESSION: Bilateral renal cysts, largest on the left measuring 7.[address] cm with no suspicious CT features. Enlarged fatty liver and mild splenomegaly. Assessment & Plan Assessment & Plan (1) Renal cyst: Code(s): N28.1 - Cyst of kidney, acquired Plan CAT scan results were reviewed with the patient in detail. Renal cysts meet criteria of benign cysts Follow up as needed. Orders: Orders AMB Urinalysis Automated 01/10/23 Z13.9 - Encounter for screening, unspecified Patient Instructions: The patient had an opportunity to ask questions regarding treatment plan. All questions were answered. Imaging, Laboratory studies and physical exam results were discussed and reviewed in detail. No major barriers to understanding were identified. The patient expressed understanding and agreement with the above treatment plan.? ? ? The patient is aware they should contact our office by phone for worsening of their current condition or the appearance of new symptoms. Compliance is encouraged with any medications and followup testing that is ordered.? ? ? It is a privilege to be allowed the opportunity to participate in the urologic care of your patient. If you have any questions or concerns regarding treatment for the above conditions please do not hesitate to contact me. The office telephone contact is [phone].? ? ? This note is constructed in part using voice recognition software. While every effort has been made to ensure accuracy meter installer errors may have been included.? ? ? Yours sincerely,? ? ? Cm Jerome MD? Coding Level of Care Code Est Pt Level 3 (50517) Diagnoses Renal cyst N28.1
== END 2023-01-10 16:00 | disposition home or self-care (01) ==
PROVIDERS: PCP Physician Assistant; Visit Provider Urology
DX: N28.1 Cyst of kidney, acquired (principal)
CPT/HCPCS: 99213

== ENCOUNTER → 2023-01-10 15:12 | Outpatient (BNVA) | payer OTHER, SELFPAY | PROVIDERS: PCP Physician Assistant; Visit Provider Urology | DX: N28.1 Cyst of kidney, acquired (principal); R73.03 Prediabetes; Z79.84 Long term (current) use of oral hypoglycemic drugs | CPT/HCPCS: 99212 ==

== ENCOUNTER 2023-04-30 00:17 | Emergency (ER) | payer SELFPAY ==
--- NOTE | 2023-04-30 | ECG_ITS ---
Test Reason : CHEST PAIN Blood Pressure : / mmHG Vent. Rate : 086 BPM Atrial Rate : 086 BPM P-R Int : 164 ms QRS Dur : 096 ms QT Int : 368 ms P-R-T Axes : 047 -37 045 degrees QTc Int : 440 ms Normal sinus rhythm Possible Left atrial enlargement Left axis deviation Incomplete right bundle branch block Cannot rule out Anterior infarct , age undetermined Abnormal ECG No previous ECGs available Referred By: Generic ED Physician Electronically Signed By:KARINE KEARNEY MD
--- NOTE | ~2023-04-30 | XR_ITS ---
EXAMINATION: XR CHEST CLINICAL INFORMATION: Right-sided rib pain COMPARISON: None available. TECHNIQUE: Frontal view of the chest was obtained. FINDINGS: Normal symmetric lung volumes. No parenchymal consolidation. Diffuse mild bronchial wall thickening. No pleural effusion. No pneumothorax. Cardiomediastinal silhouette and pulmonary vascularity are within normal limits. No acute osseous abnormalities. XR/XR chest 1V IMPRESSION: * No acute findings. * Mild diffuse bronchial wall thickening suggestive of bronchitis and/or asthma.
[2023-04-30 00:27] VITALS: BP 191/83; PULSE 95; RESP 20; TEMP 36.4; O2SAT 97; BMI 47.1
[2023-04-30 00:45] LABS: MANUAL DIFF FLAG NO
[2023-04-30 00:46] LABS: Basophils Percent Auto 0.2 % (0-2); Eosinophils Absolute Auto 0.2 X10*3/uL (0.0-0.4); Eosinophils Percent Auto 2.4 % (0-4); Hematocrit 43.1 % (42.0-52.0); Hemoglobin 13.8 g/dl (14.0-18.0); Imm Gran Abs Auto 0.03 X10*3/uL (0.00-0.03); Imm Gran Pct Auto 0.3 % (0.0-0.4); Lymphocytes Absolute Auto 2.3 X10*3/uL (1.2-4.9); Lymphocytes Percent Auto 25.2 % (20-40); Mean Corpuscular Hemoglobin 27.9 pg (27.0-33.0); Mean Corpuscular Volume 87.1 fL (80.0-98.0); Mean Platelet Volume 10.1 fL (9.4-12.4); Monocytes Absolute Auto 0.6 X10*3/uL (0.1-1.2); Monocytes Percent Auto 6.2 % (2-11); Neutrophils Percent Auto 65.7 % (45-73); Platelet Count 194 X10*3/uL (160-400); Red Blood Count 4.95 X10*6/uL (4.60-5.80); Red Cell Distribution Width 14.3 % (11.0-16.0); White Blood Count 9.2 X10*3/uL (4.8-10.8)
[2023-04-30 00:59] LABS: Alanine Aminotransferase 25 U/L (0-40); Albumin Level 4.1 g/dL (3.5-5.0); Alkaline Phosphatase 75 U/L (39-117); Anion Gap 14 (12-20); Aspartate Amino Transferase 20 U/L (5-37); Bilirubin Total 0.3 mg/dL (0.0-1.0); Blood Urea Nitrogen 10 mg/dL (9-16); Calcium 9.2 mg/dL (8.4-10.2); Carbon Dioxide 25 mmol/L (22-29); Chloride 109 mmol/L (96-108); Creatinine Clr Calc Pharmacy 101.3; Estimated Glomerular Filt Rate > 60; Glucose Random 150 mg/dL (60-115); Potassium 3.9 mmol/L (3.3-5.1); Sodium 144 mmol/L (135-145); Total Protein 7.4 g/dL (6.5-8.0)
[2023-04-30 01:05] LABS: Troponin-I High Sensitivity 6.6 ng/L (<3.5-35.0)
[2023-04-30 01:22] LABS: Influenza A PCR NEGATIVE (Negative); Influenza B PCR NEGATIVE (Negative); Resp Syncy Virus RNA Qual PCR NEGATIVE (Negative); SARS COV2 PCR INHOUSE NEGATIVE (Negative)
[2023-04-30 03:17] VITALS: BP 154/87; PULSE 85; RESP 18; TEMP 37.2; O2SAT 96
[2023-04-30] MEDS: Acetaminophen 325 MG TABLET 650 MG PO (05:29)
[2023-04-30 05:30] VITALS: BP 145/88; PULSE 83; RESP 20; TEMP 36.4; O2SAT 97
--- NOTE | 2023-04-30 07:08 | ED_ITS ---
HPI - General Adult General Chief complaint: Upper Respiratory Symptoms Stated complaint: CP Time Seen by Provider: 04/30/23 06:56 History of Present Illness HPI narrative: The patient is a 52-year-old male with history of obesity but he says he does not have a history of asthma. He says that he has been coughing for the last 3 weeks. He says that his and children have also been coughing. Over the last few days he has developed pain in the right lower chest that is worse when he coughs and when he moves. He has had no pain or swelling in his legs. He has felt mildly feverish he says. The pain is mildly worse if he takes a deep breath. It is not related to eating. No nausea vomiting. No pain or swelling in his legs. No history of blood clots. Related Data Previous Rx's Medication Instructions Recorded CPAP (CPAP Machine/Device) #1 ea 06/20/21 metformin 500 mg tablet 500 mg PO DAILY 90 days #90 tabs 04/21/22 amlodipine 10 mg tablet 10 mg PO DAILY 90 days #90 tabs 07/20/22 atorvastatin 20 mg tablet 20 mg PO DAILY #90 tabs 07/20/22 blood pressure kit-extra large #1 ea 07/20/22 losartan 100 1 tab PO DAILY 90 days #90 tabs 07/20/22 mg-hydrochlorothiazide 25 mg tablet omeprazole 40 mg capsule,delayed 40 mg PO DAILY 90 days #90 caps 11/30/22 release aspirin 81 mg tablet,delayed 81 mg PO DAILY 90 days #90 tabs 04/15/23 release doxazosin 2 mg tablet 2 mg PO DAILY 90 days #90 tabs 04/15/23 albuterol sulfate 90 mcg/actuation 2 puff inhalation Q4-6H PRN 04/30/23 aerosol inhaler shortness of breath or wheezing #8.5 grams doxycycline monohydrate 100 mg 100 mg PO BID #14 caps 04/30/23 capsule ibuprofen 600 mg tablet 600 mg PO Q6H PRN pain #14 tabs 04/30/23 Allergies Allergy/AdvReac Type Severity Reaction Status Date / Time No Known Allergies Allergy Verified 01/10/23 15:15 [No Known Allergies*] Review of Systems 2 Review of Systems: Yes all other systems are reviewed and are negative PMFSH Past Medical History Medical History Morbid obesity Nocturnal hypoxemia [place] (obstructive sleep apnea) Tinea Surgical History No pertinent past surgical history Family History Family History Mother Brain tumor Brother Substance abuse Social History Social History Housing: Apartment Alcohol intake: current Alcohol intake frequency: holidays/special occasions only Patient Tobacco Use Status: Former Tobacco user Quit Date: 1990 Smoked in Last 30 Days: No e-Cigarette/Vaping Use: Never Used Second Hand Smoke Exposure: Yes Use of substances other than those prescribed or required for medical reasons: No Advance Directives: No Advance Directives Information Provided: No service: No Current occupational status: employed 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 Cognitive needs: No Hearing needs: No Vision needs: No Physical Exam ED Vital Signs: Vital Signs - 24 hr 04/30/23 00:27 04/30/23 03:17 04/30/23 05:30 Temperature 97.6 F 98.9 F 97.6 F Pulse Rate 95 85 83 Respiratory Rate 20 18 20 Blood Pressure 191/83 H 154/87 H 145/88 H Pulse Oximetry 97 96 97 Oxygen Delivery Method Room Air Room Air Room Air 04/30/23 07:34 04/30/23 07:44 04/30/23 07:44 Temperature Pulse Rate 78 82 Respiratory Rate 18 18 Blood Pressure 181/95 H Pulse Oximetry 94 94 Oxygen Delivery Method Room Air Room Air 04/30/23 08:12 Temperature Pulse Rate Respiratory Rate 15 Blood Pressure 156/91 H Pulse Oximetry 92 Oxygen Delivery Method Room Air BMI result Body Mass Index 47.1 Const Other: The patient is a large man. He was asleep when I walked in the room as he had had a long waiting time. He did not seem to be in obvious distress. He woke easily. HENMT Other: Face is symmetrical. Mucous membranes moist. Eyes Other: Pupils are round equal, conjunctivae clear Neck Other: No JVD, neck is supple, no stridor Chest Other: The patient has chest wall tenderness at the right costal margin. Palpation seems to reproduce his pain. Resp Other: The patient has fairly air entry bilaterally. No crackles. There are end- expiratory wheezes bilaterally. Cardio Other: The patient has a regular rate and rhythm no murmur GI Other: There is some right upper quadrant tenderness that seems similar to the patient's right anterior costal margin tenderness. There is no rebound or guarding. No [place]'s. Skin Other: Skin is dry and unremarkable. Neuro Other: The patient is awake, alert, appropriate, nontoxic. Neurologically intact. Extrem Other: The patient is very muscular. No calf swelling or asymmetry or tenderness. Medications Administered Discontinued Medications Generic Name Dose Route Start Last Admin Trade Name Freq PRN Reason Stop Dose Admin Acetaminophen 650 mg 04/30/23 05:26 04/30/23 05:29 Acetaminophen 325 Mg Tablet PO 04/30/23 05:27 650 mg ONCE ONE Administration Albuterol Sulfate 4 puff 04/30/23 07:04 04/30/23 07:29 Albuterol Sulfate 90 Mcg 8 Gm Inhaler INHALE 04/30/23 07:05 4 puff ONCE ONE Administration Doxycycline Monohydrate 100 mg 04/30/23 07:13 04/30/23 07:46 Doxycycline Monohydrate 100 Mg Capsule PO 04/30/23 07:14 100 mg ONCE ONE Administration Medical Decision Making Medical Decision Making [facility] Narrative: Patient is here for right lower chest pain in the setting of 3 weeks of cough. He has some expiratory wheezes. Other family members have cough. Chest x-ray is consistent with bronchitis. I suspect he probably has some undiagnosed asthma. He will be placed on a course of doxycycline. He was instructed in the used of an albuterol inhaler as prescribed an albuterol inhaler to be used with a spacer. I think his right-sided chest pain is chest wall pain from coughing. I do not think this is a pulmonary embolism. He is PERC negative. He has no GI symptoms. Lab Data 04/30/23 00:40 04/30/23 00:40 Labs: Lab Results 04/30/23 Range/Units 00:40 WBC 9.2 (4.8-10.8) X10*3/uL RBC 4.95 (4.60-5.80) X10*6/uL Hgb 13.8 L (14.0-18.0) g/dl Hct 43.1 (42.0-52.0) % MCV 87.1 (80.0-98.0) fL MCH 27.9 (27.0-33.0) pg MCHC 32.0 (31.0-36.0) g/dl RDW 14.3 (11.0-16.0) % Plt Count 194 (160-400) X10*3/uL MPV 10.1 (9.4-12.4) fL Immature Gran % (Auto) 0.3 (0.0-0.4) % Neut % (Auto) 65.7 (45-73) % Lymph % (Auto) 25.2 (20-40) % [place] % (Auto) 6.2 (2-11) % Eos % (Auto) 2.4 (0-4) % Baso % (Auto) 0.2 (0-2) % Lymph # (Auto) 2.3 (1.2-4.9) X10*3/uL [place] # (Auto) 0.6 (0.1-1.2) X10*3/uL Eos # (Auto) 0.2 (0.0-0.4) X10*3/uL Baso # (Auto) 0.0 (0.0-0.2) X10*3/uL Abs Immat Gran (auto) 0.03 (0.00-0.03) X10*3/uL Absolute Neuts (auto) 6.0 (2.0-8.3) x10*3/uL Absolute Nucleated RBC 0.000 (0.0-0.012) X10*3/uL Nucleated RBC % (auto) 0.0 (0.0-0.2) /100WBC Sodium 144 (135-145) mmol/L Potassium 3.9 (3.3-5.1) mmol/L Chloride 109 H (96-108) mmol/L Carbon Dioxide 25 (22-29) mmol/L Anion Gap 14 (12-20) BUN 10 (9-16) mg/dL Creatinine 1.20 (0.5-1.4) mg/dL Estim Creat Clear Calc 101.3 Estimated GFR > 60 Random Glucose 150 H (60-115) mg/dL Calcium 9.2 (8.4-10.2) mg/dL Total Bilirubin 0.3 (0.0-1.0) mg/dL AST 20 (5-37) U/L ALT 25 (0-40) U/L Alkaline Phosphatase 75 (39-117) U/L Troponin I High Sens 6.6 (<3.5-35.0) ng/L Total Protein 7.4 (6.5-8.0) g/dL Albumin 4.1 (3.5-5.0) g/dL Influenza Type A (PCR) NEGATIVE (Negative) Influenza Type B (PCR) NEGATIVE (Negative) RSV RNA Qual (PCR) NEGATIVE (Negative) SARS-CoV-2 RNA (RT-PCR) NEGATIVE (Negative) Independent Interpretation I performed an independent interpretation of an: EKG Interpretation: EKG at 00:25 shows normal sinus rhythm at 86 beats per minute. No previous EKGs available for comparison. No acute ischemic changes. Discharge Plan Discharge Clinical Impression: Acute asthmatic bronchitis, Acute chest wall pain Patient Disposition: Home, Self-Care Instructions: How to Use a Metered-Dose Inhaler and a Spacer (ED) Additional Instructions: I think you have a bronchitis that is causing some degree of wheezing. I think the pain on your right chest is probably muscle pain from coughing. Please take the antibiotic doxycycline 2 times a day as prescribed. Use ibuprofen and acetaminophen as needed for pain. Use the albuterol inhaler with a spacer provided 2 puffs every 4 4 hours as needed for coughing or feeling short of breath. Please follow-up soon with your regular doctor. If you feel significantly worse please return to the emergency room for additional evaluation Prescriptions: New doxycycline monohydrate 100 mg capsule 100 mg PO BID Qty: 14 0RF ibuprofen 600 mg tablet 600 mg PO Q6H PRN (Reason: pain) Qty: 14 0RF albuterol sulfate 90 mcg/actuation HFA aerosol inhaler 2 puff inhalation Q4-6H PRN (Reason: shortness of breath or wheezing) Qty: 8.5 0RF No Action omeprazole 40 mg capsule,delayed release(DR/EC) 40 mg PO DAILY 90 Days Qty: 90 1RF doxazosin 2 mg tablet 2 mg PO DAILY 90 Days Qty: 90 1RF aspirin 81 mg tablet,delayed release (DR/EC) 81 mg PO DAILY 90 Days Qty: 90 1RF (DME) CPAP Machine/Device Device See Rx Instructions .Route Qty: 1 0RF Rx Instructions: As directed metformin 500 mg tablet 500 mg PO DAILY 90 Days Qty: 90 2RF losartan-hydrochlorothiazide 100-25 mg tablet 1 tab PO DAILY 90 Days Qty: 90 1RF amlodipine 10 mg tablet 10 mg PO DAILY 90 Days Qty: 90 1RF atorvastatin 20 mg tablet 20 mg PO DAILY Qty: 90 1RF (DME) blood pressure kit-extra large Kit See Rx Instructions .Route Qty: 1 0RF Rx Instructions: As directed Referrals: Husam Beatty PA-C [Primary Care Provider] - (Asthmatic bronchitis) Stand Alone Forms: Work/School Release Interventions: ED Discharge Assessment Last Done: 04/30/23 08:28 Discharge Date/Time: 04/30/23 08:29
[2023-04-30] MEDS: Albuterol Sulfate 90 MCG 8 GM INHALER 4 PUFF INHALE (07:29)
[2023-04-30 07:34] VITALS: PULSE 78; RESP 18; O2SAT 97
[2023-04-30 07:44] VITALS: BP 181/95; PULSE 82; RESP 18; O2SAT 94
[2023-04-30] MEDS: Doxycycline Monohydrate 100 MG CAPSULE PO (07:46)
[2023-04-30 08:12] VITALS: BP 156/91; RESP 15; O2SAT 92
== END 2023-04-30 08:29 | disposition home or self-care (01) ==
PROVIDERS: Emergency Provider Emergency Medicine; PCP Physician Assistant
DX: R07.89 Other chest pain (principal); J45.909 Unspecified asthma, uncomplicated; R05.9 Cough, unspecified; Z79.899 Other long term (current) drug therapy; Z20.822 Contact with and (suspected) exposure to COVID-19; Z20.828 Contact with and (suspected) exposure to other viral communicable diseases
CPT/HCPCS: 0241U; 36415; 71045; 80053; 84484; 85025; 93005; 94640; 99284; 99285

== ENCOUNTER → 2023-04-30 00:25 | Outpatient (BNV) | payer SELFPAY | PROVIDERS: Emergency Provider Emergency Medicine; PCP Physician Assistant; Visit Provider Internal Medicine Cardiovascular Disease | DX: R94.31 Abnormal electrocardiogram [ECG] [EKG] (principal) | CPT/HCPCS: 93010 ==

== ENCOUNTER 2023-09-10 11:04 | Outpatient (AMB) | payer OTHER, SELFPAY ==
--- NOTE | 2023-09-10 11:08 | A.OFFPC_ITS ---
Vital Signs 09/10/23 11:23 Height 5 ft 8 in Weight 314 lb 4 oz BMI 47.8 BP 115/70 Blood Pressure Location Lt brachial Position Sitting Pulse Source Pulse Oximeter Oxygen Delivery Method Room Air Intake Visit Reasons: MEDs F/U. Clay Burner Required: No Accompanied by: Self / Same As Patient Allergies No Known Allergies [No Known Allergies*] Allergy (Verified 09/10/23 11:43) Medication List - Last Reconciled 09/10/23 by Husam Beatty PA-C albuterol sulfate 90 mcg/actuation 2 puffs inhalation Q4-6H PRN 30 days amlodipine 10 mg PO DAILY 90 days aspirin 81 mg PO DAILY 90 days atorvastatin 20 mg PO DAILY blood pressure kit-extra large As directed CPAP (CPAP Machine/Device) As directed doxazosin 2 mg PO DAILY 90 days ibuprofen 600 mg PO Q6H PRN losartan-hydrochlorothiazide 100-25 mg 1 tab PO DAILY 90 days metformin 500 mg PO DAILY 90 days omeprazole 40 mg PO DAILY 90 days Tobacco use date assessed: 09/10/23 Dental Screening Dental Screen Date: 11/20/22 HPI MEDs F/U. HPI Details Patient is a 52-year-old male here today for follow-up visit ? Patient has a past medical history significant for HTN, CAD, obesity, GERD, Concern-> reports having an intermittent cough over the last 4 months. He did see urgent care and did receive antibiotics for acute bronchitis. Chest x-ray at the time did show tracheobronchitis versus asthma. He does report at times feeling somewhat wheezy and having coughing fits. He does report albuterol inhaler does help at times. PLAN: Will try maintenance inhaler for better control over his asthma like symptoms. .. ? Obesity:? Unfortunately gained weight since last office visit. BMI now at 47.8 .He has been struggling with nighttime snacking.? unfortunately has been unable to lose any weight since last visit. ? . Hypertension:? Blood pressure acceptable today in office.? Unfortunately has not been able to reduce his weight as he has stopped going to the gym. Otherwise denies any chest pain, vision issues, headaches or shortness of breath on exertion. ? .. ? CAD:? Has been feeling well without any chest discomfort, shortness of breath on exertion. ?Patient does report being hospitalized years ago for chest pain and was told he had coronary artery blockage. Thus he was placed on statin therapy and aspirin. .. GERD:? Use omeprazole on a daily basis with good effect. ? .. ? [place]: ? Patient's most recent sleep study showing severe obstructive sleep apnea- titration study showing need for CPAP ? Does have CPAP machine at home though does admit he has only been fairly compliant with its use. 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 1. Little interest or pleasure in doing things: more than half the days 2. Feeling down, depressed, or hopeless: more than half the days 3. Trouble falling or staying asleep, or sleeping too much: nearly every day 4. Feeling tired or having little energy: nearly every day 5. Poor appetite or overeating: nearly every day 6. Feeling bad about yourself - or that you are a failure or have let yourself or your family down: several days 7. Trouble concentrating on things, such as reading the newspaper or watching television: not at all 8. Moving or speaking so slowly that other people could have noticed. Or the opposite - being so fidgety or restless that you have been moving around a lot more than usual: not at all 9. Thoughts that you would be better off or of hurting yourself in some way: not at all Total score: 14 Depression Screening Interpretation: Positive Depression Screening Follow-up: Existing condition Depression Screening Done: Yes 62383 - PHQ-9 Billing: Yes Source: Developed by Drs. Clint Aguilar, Ellie Arteaga, Daron Decker and colleagues, with an educational alfonso from [employer]. Thrive Questionnaire Date Thrive assessed: 09/10/23 I am a: Patient What is your living situation today?: I have a steady place to live Within the past 12 months, did the food you bought not last and you didn't have the money to get more?: Never true Within the past 12 months, did you worry whether your food would run out before you got money to buy more?: Never true Do you have trouble paying for medicines?: No Do you have trouble getting transportation to medical appointments?: No Do you have trouble paying your heating and electricity bill?: No Do you have trouble taking care of your child, family member or friend?: No Do you have trouble with day-to-day activities such as bathing, preparing meals, shopping, managing finances, etc.?: No Are you currently unemployed and looking for a job?: No Are you interested in more education?: No Please select the resources that you would like help with: None Currently or been in a relationship where the following occur: no concerns reported THRIVE Score: 0 AUDIT C Alcohol Use Questionnaire (AUDIT-C) 1. How often do you have a drink containing alcohol?: Monthly or less 2. How many drinks containing alcohol do you have on a typical day when you are drinking?: 1 or 2 3. How often do you have six or more drinks on one occasion?: Never Total Score: 1 Score Reviewed/Action Taken: No MARGRET-7 AMB Questionnaire MARGRET-7 Date MARGRET - 7 assessed: 09/10/23 Feeling nervous, anxious, or on edge: 1 = Several days Not being able to stop or control worryin = Several days Worrying too much about different things: 2 = More than half the days Trouble relaxin = More than half the days Being so restless that it is hard to sit still: 1 = Several days Becoming easily annoyed or irritable: 1 = Several days Feeling afraid as if something awful might happen: 1 = Several days Total MARGRET-7 score (0-4 normal; 5-9 mild; 10-14 moderate; 15-21 severe): 9 Source: Developed by Drs. Clint Aguilar, Ellie Arteaga, Daron Decker and colleagues, with an educational alfonso from [employer]. MARGRET-7 Assessment Billing MARGRET-7 Assessment Tool: MARGRET-7 Assessment 14892 ACT Questionnaire In the past 4 weeks, how much of the time did your asthma keep you from getting as much done at work, school or at home?: A little of the time During the past 4 weeks, how often have you had shortness of breath?: 3-6 times a week During the past 4 weeks, how often did your asthma symptoms wake you up at night or earlier than usual in the morning?: Once or twice per week During the past 4 weeks, how often have you had to use your rescue inhaler or nebulizer medication?: 2-3 times a week How would you rate your asthma control during the past 4 weeks?: Somewhat controlled ACT Interpretation: Positive ACT Branch: New medication Score: 17 Review of Systems Const Denies headache(s) Eyes Denies loss of vision ENT Denies vertigo, Denies dizziness, Denies headache(s) and Denies sore throat Card Denies chest pain, Denies leg edema and Denies lightheadedness Resp Reports cough, Denies hemoptysis and Reports wheezing GI Denies abdominal pain, Denies melena, Denies constipation, Denies diarrhea and Denies vomiting Denies dysuria, Denies urinary frequency and Denies urinary urgency Musc Denies arthralgias, Denies joint swelling, Denies numbness and Denies tingling Neuro Denies Abnormal speech present, Denies behavioral changes, Denies vertigo, Denies dizziness, Denies headache(s), Denies loss of vision, Denies memory loss, Denies numbness and Denies tingling Psych Denies anxiety, Denies behavioral changes, Denies depression, Denies memory loss and Denies panic attacks Albert/Lymph Denies easy bleeding and Denies easy bruising Aller/Immun Reports wheezing Physical exam (Primary Care) Vital Signs: Last Vital Signs BP 115/70 09/10/23 11:23 Oxygen Delivery Method Room Air 09/10/23 11:23 BMI result Body Mass Index 47.8 BMI Assessment/Plan discussion: High BMI High, discussed plan: lifestyle, weight reduction, dietary and physical activity Tobacco/Smoking Status: Tobacco use Status Tobacco use date assessed 09/10/23 09/10/23 11:32 Patient Tobacco Use Status Former Tobacco user 09/10/23 11:08 e-Cigarette/Vaping Use Never Used 09/10/23 11:08 PHQ-9: PHQ-9 Score PHQ-9: Total score 14 09/10/23 11:48 Depression Screening Interpretation: Positive Depression Screening Follow-up: Existing condition Thrive Assessment: Date of Thrive Assessment Date Thrive assessed 09/10/23 09/10/23 11:32 Currently or been in a relationship where the following occur: no concerns reported Const Other: Obese General: healthy appearing, no acute distress, alert and awake Nutritional Appearance: well nourished Orientation/consciousness: oriented to person, oriented to place and oriented to time HENMT Ears: TM's normal bilaterally General nose exam: Normal nasal mucous membranes and turbinates present Eyes Conjunctivae: conjunctivae normal Sclerae: sclerae normal Pupils: Equal, round and reactive pupils present Neck Neck: Yes no lymphadenopathy and Yes no JVD Thyroid: Thyroid normal Carotids: no bruits Resp Effort & Inspection: normal respiratory effort and not tachypneic Auscultation: no crackles, no rales, no rhonchi and no wheezes Cardio Rate: regular rate Rhythm: regular rhythm Heart sounds: no murmurs and normal S1 and S2 GI Palpation (GI): Soft to palpation, nontender, no hepatomegaly and no splenomegaly Auscultation: normal bowel sounds Skin General skin exam: no rashes or lesions noted and dry skin Neuro General: oriented to person, oriented to place and oriented to time Cranial nerves: Yes Equal, round and reactive pupils present Speech: No Abnormal speech present Gait exam (Neuro): Normal gait present Motor exam (neuro): no tremor noted Extrem Right upper extremity: full ROM Left upper extremity: full ROM Right lower extremity: full ROM; no edema Left lower extremity: full ROM; no edema Psych Mental Status: mental status grossly normal Speech and movement: Normal speech and movement present Affect: normal affect Attitude: cooperative Thought process: Normal thought process present Results AMB Hemoglobin A1c AMB Hemoglobin A1c 6.1 % Last Edit by ARUNA Alejandro on 09/10/23 11:47 Results Reviewed Results Reviewed: Laboratory Last Values Hgb A1c (Clinic) 6.1 % (4.0-6.0) H 09/10/23 11:33 Assessment and Plan Assessment & Plan (1) CAD (coronary artery disease): Code(s): I25.10 - Atherosclerotic heart disease of [place] coronary artery without angina pectoris Qualifiers: Associated angina: without angina Coronary Disease-Associated Artery/Lesion type: [place] artery [place] vs. transplanted heart: [place] heart Qualified Code(s): I25.10 - Atherosclerotic heart disease of [place] coronary artery without angina pectoris Plan: As per HPI, patient has history coronary artery disease. Patient continues on s tatin therapy. Will continue to follow lipids with goal LDL to be below 70 (2) Impaired glucose metabolism: Code(s): R73.09 - Other abnormal glucose Plan: Patient prediabetic, continues on metformin 500 daily. Patient continues to have slightly elevated fasting blood sugar. Will continue to follow fasting blood sugar and A1c Goal A1c to remain below 6.5 (3) [place] (obstructive sleep apnea): Code(s): G47.33 - Obstructive sleep apnea (adult) (pediatric) Plan: Patient does have CPAP machine at home though is only fairly compliant with the nightly use of the CPAP machine. (4) HLD (hyperlipidemia): Code(s): E78.5 - Hyperlipidemia, unspecified Qualifiers: Hyperlipidemia type: pure hypercholesterolemia Qualified Code(s): E78.00 - Pure hypercholesterolemia, unspecified Plan: Will continue statin therapy as is with goal LDL to be below 70 (5) HTN (hypertension): Code(s): I10 - Essential (primary) hypertension Qualifiers: Hypertension type: essential hypertension Qualified Code(s): I10 - Essential (primary) hypertension Plan: Patient's blood pressure acceptable today in office since starting doxazosin blood pressures have been better. Does not monitor blood pressures at home and advised to do so. Goal blood pressure be below 140/90. Will consider increasing doxazosin dose to 4 mg for better blood pressure control if blood pressure is elevated at home. (6) Microalbuminuria: Code(s): R80.9 - Proteinuria, unspecified Plan: Continues to have microalbuminuria ? Related to his complex renal cyst versus uncontrolled blood pressure (7) Complex renal cyst: Code(s): N28.1 - Cyst of kidney, acquired Plan: Has followed up with Urology in does have a complex cyst in his left kidney Did have CT of abdomen in December of 2022 showing-->Bilateral renal cysts, largest on the left measuring 7.1 cm with no suspicious CT features. (8) Morbid obesity with BMI of 40.0-44.9, adult: Code(s): E66.01 - Morbid (severe) obesity due to excess calories; Z68.41 - Body mass index [BMI] 40.0-44.9, adult Plan: Patient does understand his BMI is over 40 and will work on being more physically active and adapting to better eating habits to reduce his weight. (9) Asthma: Code(s): J45.909 - Unspecified asthma, uncomplicated Qualifiers: Asthma complication type: uncomplicated Asthma persistence: intermittent Asthma severity: mild Qualified Code(s): J45.20 - Mild intermittent asthma, uncomplicated Plan: Patient reporting 4 month history of intermittent cough and wheeze. Does have albuterol inhaler which does help his pulmonary symptoms. Of note chest x-ray in April of 2023 did show signs and symptoms of bronchitis and asthma. Will supply patient with a maintenance inhaler her better control of his asthma type symptoms (10) Fatigue: Code(s): R53.83 - Other fatigue Qualifiers: Fatigue type: chronic, unspecified Qualified Code(s): R53.82 - Chronic fatigue, unspecified Orders: Orders Comprehensive [place]. Panel Fast 09/10/23 R73.09 - Other abnormal glucose Complete Blood Count no Diff 09/10/23 R73.09 - Other abnormal glucose AMB Hemoglobin A1c 09/10/23 R73.03 - Prediabetes Resp Allergy Profile Region I 09/10/23 J45.20 - Mild intermittent asthma, uncomplicated, R05.9 - Cough, unspecified H pylori Ag Stool 09/10/23 A04.8 - Other specified bacterial intestinal infections Testosterone, Free/Total 09/10/23 R53.82 - Chronic fatigue, unspecified Lipid Panel 09/10/23 I25.10 - Atherosclerotic heart disease of [place] coronary artery without angina pectoris Referrals Ophthalmology Referral R73.03 - Prediabetes Medical Weight Management Referral E66.01 - Morbid (severe) obesity due to excess calories, Z68.42 - Body mass index [BMI] 45.0-49.9, adult Medications: New fluticasone propion-salmeterol 115-21 mcg/actuation (Advair HFA) 2 puffs inhalation BID 30 days 12 grams 3RF J45.20 - Mild intermittent asthma, uncomplicated azithromycin For 250 mg dose pack: take 500 mg today (day 1), then 250 mg for 4 days (days 2-5) PO 6 tabs 0RF J40 - Bronchitis, not specified as acute or chronic Changed From albuterol sulfate 90 mcg/actuation 2 puffs inhalation Q4-6H PRN 8.5 grams 0RF shortness of breath or wheezing To albuterol sulfate 90 mcg/actuation 2 puffs inhalation Q4-6H 30 days PRN 8.5 grams 3RF shortness of breath or wheezing Refilled aspirin 81 mg PO DAILY 90 days 90 tabs 1RF I10 - Essential (primary) hypertension doxazosin 2 mg PO DAILY 90 days 90 tabs 1RF I10 - Essential (primary) hypertension atorvastatin 20 mg PO DAILY 90 tabs 1RF E78.00 - Pure hypercholesterolemia, unspecified Coding Level of Care Code Est Pt Level 4 (71745) Diagnoses Coronary artery disease involving [place] coronary artery of [place] heart without angina pectoris I25.10 Associated angina: without angina Coronary Disease-Associated Artery/Lesion type: [place] artery [place] vs. transplanted heart: [place] heart Impaired glucose metabolism R73.09 [place] (obstructive sleep apnea) G47.33 Pure hypercholesterolemia E78.00 Hyperlipidemia type: pure hypercholesterolemia Essential hypertension I10 Hypertension type: essential hypertension Microalbuminuria R80.9 Complex renal cyst N28.1 Morbid obesity with BMI of 40.0-44.9, adult E66.01; Z68.41 Mild intermittent asthma without complication J45.20 Asthma complication type: uncomplicated Asthma persistence: intermittent Asthma severity: mild Chronic fatigue R53.82 Fatigue type: chronic, unspecified Additional Codes MARGRET-7 Assessment Billing - MARGRET-7 Assessment Tool: MARGRET-7 Assessment [id number] ([id number])
[2023-09-10 11:23] VITALS: BP 115/70; BMI 47.8
== END 2023-09-10 12:09 | disposition home or self-care (01) ==
PROVIDERS: PCP Physician Assistant; Visit Provider Physician Assistant
DX: R73.03 Prediabetes (principal)
CPT/HCPCS: 83036; 99214

== ENCOUNTER → 2023-09-13 14:52 | Outpatient (BNVA) | payer OTHER, SELFPAY | PROVIDERS: PCP Physician Assistant; Visit Provider Physician Assistant Surgical ==

== ENCOUNTER 2023-10-25 06:39 | Outpatient (REF) | payer OTHER, SELFPAY ==
[2023-10-25 07:48] LABS: Hemoglobin 14.8 g/dl (14.0-18.0); Mean Corpuscular HGB Conc 32.2 g/dl (31.0-36.0); Mean Platelet Volume 10.5 fL (9.4-12.4); Platelet Count 189 X10*3/uL (160-400); Red Blood Count 5.29 X10*6/uL (4.60-5.80); Red Cell Distribution Width 15.3 % (11.0-16.0); White Blood Count 7.3 X10*3/uL (4.8-10.8)
[2023-10-25 08:08] LABS: Alanine Aminotransferase 24 U/L (0-40); Albumin Level 4.4 g/dL (3.5-5.0); Alkaline Phosphatase 86 U/L (39-117); Anion Gap 13 (12-20); Aspartate Amino Transferase 19 U/L (5-37); Bilirubin Total 0.5 mg/dL (0.0-1.0); Blood Urea Nitrogen 14 mg/dL (9-16); Calcium 9.4 mg/dL (8.4-10.2); Carbon Dioxide 26 mmol/L (22-29); Chloride 103 mmol/L (96-108); Cholesterol 113 mg/dL (<200); Estimated Glomerular Filt Rate > 60; Glucose Fasting 121 mg/dL (60-99); HDL Cholesterol 36 mg/dL (>40); LDL Cholesterol Calculated 62 mg/dL (<100); Potassium 3.5 mmol/L (3.3-5.1); Sodium 138 mmol/L (135-145); Total Protein 7.6 g/dL (6.5-8.0); Triglycerides 75 mg/dL (<150)
[2023-10-25 09:05] LABS: Creatinine Urine 159.37 mg/dL; Microalbum/Creatinine Ratio Ur 92.2 ug/mg cr (<30)
[2023-11-02 06:43] LABS: Class Alternaria alternata 0; Class Aspergillus fumigatus 0; Class Bermuda Grass 0; Class Birch 0; Class Cat Dander 0; Class Cladosporium herbarum 0; Class Cockroach 2; Class Common Ragweed 0; Class Cottonwood 0; Class Derm. pterony 0/1; Class Dermatophagoides farinae 0/1; Class Dog Dander 0; Class Elm 0; Class Maple Box Elder 0; Class Mountain Cedar 0; Class Mouse Urine Protein 0; Class Mugwort 0; Class Oak 0; Class Penicillium crysogenum 0; Class Rough Pigweed 0; Class Sheep Sorrel 0; Class Sycamore 0; Class Timothy Grass 0; Class Walnut Tree 0; Class White Ash 0; Class White Mulberry 0; D001 IgE D pteronyssinus 0.14 kU/L; D002 - IgE D farinae 0.16 kU/L; E001 - IgE Cat Dander <0.10 kU/L; E005 - IgE Dog Dander <0.10 kU/L; E072-IgE Mouse Urine <0.10 kU/L; G002 IgE Bermuda Grass <0.10 kU/L; G006 - IgE Timothy Grass <0.10 kU/L; I006-IgE Cockroach, German 1.19 kU/L; Immunoglobulin E 56 kU/L (<OR=114); M001 IgE Penicillium chrysogen <0.10 kU/L; M002 - IgE Cladosporium herbar <0.10 kU/L; M003 - IgE Aspergillus fumigat <0.10 kU/L; M006 - IgE Alternaria alternat <0.10 kU/L; T001 IgE Maple/Box Elder <0.10 kU/L; T003 IgE Common Silver Birch <0.10 kU/L; T006 - IgE Cedar, Mountain <0.10 kU/L; T007 - IgE Oak, White <0.10 kU/L; T008 IgE Elm, American <0.10 kU/L; T010 - IgE Walnut <0.10 kU/L; T011 - IgE Maple Leaf Sycamore <0.10 kU/L; T014 - IgE Cottonwood <0.10 kU/L; T015 - IgE Ash, White <0.10 kU/L; T070 - IgE White Mulberry <0.10 kU/L; W001 - IgE Ragweed, Short <0.10 kU/L; W006 - IgE Mugwort <0.10 kU/L; W014 IgE Pigweed, Common <0.10 kU/L; W018 IgE Sheep Sorrel <0.10 kU/L
== END 2023-10-25 06:40 | disposition home or self-care (01) ==
LOC: HO.LAB 06:39
PROVIDERS: PCP Physician Assistant; Visit Provider Physician Assistant
DX: I10 Essential (primary) hypertension (principal); R73.09 Other abnormal glucose; R05.9 Cough, unspecified; J45.20 Mild intermittent asthma, uncomplicated; R53.82 Chronic fatigue, unspecified; I25.10 Atherosclerotic heart disease of native coronary artery without angina pectoris; Z12.5 Encounter for screening for malignant neoplasm of prostate
CPT/HCPCS: 36415; 80053; 80061; 82043; 82570; 82785; 84153; 84402; 84403; 85027; 86003

== ENCOUNTER 2023-11-26 08:51 | Outpatient (AMB) | payer OTHER, SELFPAY ==
--- NOTE | 2023-11-26 08:55 | A.OFFPC_ITS ---
Vital Signs 11/26/23 08:56 Height 5 ft 8 in Weight 313 lb 2 oz BMI 47.6 BP 130/90 H Blood Pressure Location Lt brachial Position Sitting Pulse 88 Pulse Source Pulse Oximeter Pulse Oximetry (%) 94 Oxygen Delivery Method Room Air Intake Visit Reasons: PE Intake Note: Patient is here today for a physical. 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 Hr Internship: Not Required per policy Accompanied by: Self / Same As Patient Allergies No Known Allergies [No Known Allergies*] Allergy (Verified 11/26/23 09:08) Medication List - Last Reconciled 11/26/23 by Husam Beatty PA-C albuterol sulfate 90 mcg/actuation 2 puffs inhalation Q4-6H PRN 30 days amlodipine 10 mg PO DAILY 90 days aspirin 81 mg PO DAILY 90 days atorvastatin 20 mg PO DAILY azithromycin For 250 mg dose pack: take 500 mg today (day 1), then 250 mg for 4 days (days 2-5) PO blood pressure kit-extra large As directed CPAP (CPAP Machine/Device) As directed doxazosin 2 mg PO DAILY 90 days fluticasone propion-salmeterol 115-21 mcg/actuation (Advair HFA) 2 puffs inhalation BID 30 days ibuprofen 600 mg PO Q6H PRN losartan-hydrochlorothiazide 100-25 mg 1 tab PO DAILY 90 days metformin 500 mg PO DAILY 90 days omeprazole 40 mg PO DAILY 90 days Tobacco use date assessed: 11/26/23 Dental Screening Dental Screen Date: 11/26/23 Did you have a dental visit in the last 12 months?: Yes Did you have a dental problem in the last 6 months where you did not have access to dental care?: No Was dental information given to patient?: Patient has dentist HPI PE HPI Details Patient is a 53-year-old male here today for an annual physical. ? Patient has a past medical history significant for HTN, CAD, obesity, GERD, Concern-> continues with intermittent chronic cough and nasal/sinus congestion. Did do allergy testing which did show positive allergens to house dust and c ockroaches. He does have albuterol inhaler and Advair inhaler available to him that are been helpful. Does use [id number] allergy/congestion medication which has been helpful as well. .. ? Obesity:? Unfortunately has not lost any weight since last office visit .He has been struggling with nighttime snacking.? unfortunately has been unable to lose any weight since last visit. ? . Hypertension:? Blood pressure slightly elevated today in office.? Unfortunately has not been able to reduce his weight as he has stopped going to the gym. Otherwise denies any chest pain, vision issues, headaches or shortness of breath on exertion. Does have microalbuminuria though has improved since previous. ? .. ? CAD:? Has been feeling well without any chest discomfort, shortness of b reath on exertion. Most recent lipid panel showing excellent control of his LDL ?Patient does report being hospitalized years ago for chest pain and was told he had coronary artery blockage. Thus he was placed on statin therapy and aspirin. .. GERD:? Use omeprazole on a daily basis with good effect. ? .. ? [place]: ? Does have severe sleep apnea. Continues to have daily chronic fatigue. He reports he is not completely compliant with nightly use of CPAP machine due to not being able to sleep with current mask. Colonoscopy :? Had a colonoscopy in 2019 Dr Miller- normal repeat in 10yrs? ( 2028) .. Vaccine:? Up-to-date with tetanus vaccine, Decline COVID Vaccine, UTD declines getting flu shots. Laboratory Tests 08/07/22 09/10/23 10/25/23 06:35 11:33 06:50 Hgb Creatinine Fasting Glucose Hgb A1c (Clinic) 6.1 H LDL Cholesterol, C alc PSA Screen [place] I gE Urine Microalbumin 401.0 147.0 10/25/23 06:53 Hgb 14.8 Creatinine 0.83 Fasting Glucose 121 H Hgb A1c (Clinic) LDL Cholesterol, C alc 62 PSA Screen 0.80 [place] I gE 1.19 H Urine Microalbumin [facility] Medical History Nocturnal hypoxemia [place] (obstructive sleep apnea) Morbid obesity Tinea Surgical History No pertinent past surgical history Family History Mother Brain tumor Brother Substance abuse Social History (Updated 11/26/23 @ 09:12 by Husam Beatty PA-C) Housing: Apartment Alcohol intake: current Alcohol intake frequency: holidays/special occasions only Patient Tobacco Use Status: Former Tobacco user e-Cigarette/Vaping Use: Never Used Second Hand Smoke Exposure: Yes service: No Current occupational status: employed 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 Clint Aguilar, Ellie Arteaga, Daron Decker and colleagues, with an educational alfonso from [employer]. Review of Systems Const Denies body aches, Denies chills, Denies excessive sweating, Denies fatigue, Denies fever(s) and Denies headache(s) Eyes Denies blurry vision ENT Denies dysphagia, Denies vertigo, Denies dizziness, Denies headache(s), Denies hearing loss and Denies tinnitus Card Denies chest pain, Denies chest pain with activity, Denies syncope, Denies irregular heart rhythm and Denies dyspnea Resp Denies chest congestion, Denies cough, Denies hemoptysis, Denies dyspnea and Denies wheezing GI Denies abdominal pain, Denies melena, Denies hematochezia, Denies coffee ground emesis, Denies dysphagia, Denies diarrhea, Denies nausea and Denies vomiting Denies difficulty urinating, Denies dysuria, Denies urinary frequency, Denies urinary hesitancy and Denies urinary urgency Musc Denies arthralgias, Denies limited range of motion, Denies muscle cramps and Denies muscle weakness Skin/Breast Denies rash and Denies skin ulcer Neuro Denies Abnormal speech present, Denies confusion, Denies vertigo, Denies dizziness, Denies syncope, Denies headache(s), Denies memory loss and Denies seizure-like activity Psych Denies anxiety, Denies confusion, Denies depression, Denies memory loss, Denies panic attacks and Denies paranoia Endo Denies excessive sweating, Denies fatigue, Denies flushing, Denies polydipsia and Denies polyuria Aller/Immun Denies wheezing Physical exam (Primary Care) Vital Signs: Last Vital Signs Pulse 88 11/26/23 08:56 BP 130/90 H 11/26/23 08:56 Pulse Ox 94 11/26/23 08:56 Oxygen Delivery Method Room Air 11/26/23 08:56 BMI result Body Mass Index 47.6 BMI Assessment/Plan discussion: High BMI High, discussed plan: lifestyle, weight reduction and physical activity Tobacco/Smoking Status: Tobacco use Status Tobacco use date assessed 11/26/23 11/26/23 09:03 Patient Tobacco Use Status Former Tobacco user 11/26/23 09:03 e-Cigarette/Vaping Use Never Used 11/26/23 09:03 Thrive Assessment: Date of Thrive Assessment Date Thrive assessed 09/10/23 11/26/23 09:03 Const General: cooperative, comfortable, no acute distress, alert and awake; No confusion Orientation/consciousness: oriented to person, oriented to place, patient oriented x3 and No confusion HENMT Head: Yes normocephalic Ears: external ears normal and TM's normal bilaterally Face and sinus: No sinus tenderness Mouth: Normal oral and palatal mucosa present and tongue normal Teeth and gingiva: dentition normal and gingiva normal Throat: Yes posterior oropharynx normal, Yes tonsils normal and Yes uvula midli ne Eyes Conjunctivae: conjunctivae normal Sclerae: sclerae normal Pupils: Equal, round and reactive pupils present EOM: EOMs intact bilaterally Direct Ophthalmoscopy: No no photophobia Neck Neck: Yes no lymphadenopathy, No tender and Yes no JVD Thyroid: Thyroid normal Carotids: no bruits Chest Chest palpation & inspection: no tenderness Resp Effort & Inspection: normal respiratory effort, no audible wheezes, not labored and no stridor Auscultation: no crackles, no rales, no rhonchi and no wheezes Cardio Jugular venous distension: no JVD Rate: regular rate, not bradycardic and not tachycardic Rhythm: regular rhythm Bruits: no carotid bruits Peripheral pulses: Peripheral pulses 2+ throughout GI Inspection: Yes normal to inspection, No abdominal wall ecchymosis and No visible herniation Palpation (GI): Soft to palpation, nontender, no guarding, not rigid and No hepatosplenomegaly present Auscultation: normoactive bowel sounds General: Yes no CVA tenderness Back/Spine/Pelvis Back: no CVA tenderness and No back tenderness Cervical Spine: cervical ROM normal Thoracic/Lumbar Spine: thoracic and lumbar spine normal to inspection, straight leg raise negative bilaterally, No thoraco-lumbar ROM limited and No lumbar spinal tenderness Skin Lesions: no lesions Rashes: no rashes Wounds: no wounds Neuro General: oriented to person, oriented to place, patient oriented x3, CN's II-XI intact bilaterally and No confusion Cranial nerves: Yes Equal, round and reactive pupils present and Yes Normal accommodation reflex present Cognition (Neuro): normal cognition Speech: No Abnormal speech present Gait exam (Neuro): Normal gait present Motor exam (neuro): 5/5 motor strength present throughout Extrem Right upper extremity: full ROM; no cyanosis Left upper extremity: full ROM; no cyanosis Right lower extremity: no edema Left lower extremity: no edema Psych Appearance: grossly normal Mental Status: mental status grossly normal Affect: normal affect Attitude: cooperative Thought process: Normal thought process present Results AMB Hemoglobin A1c AMB Hemoglobin A1c 6.4 % Last Edit by CHARLIE Alcala on 11/26/23 09:08 Assessment and Plan Assessment & Plan (1) Annual physical exam: Code(s): Z00.00 - Encounter for general adult medical examination without abnormal findings (2) Dermoid cyst of scalp: Code(s): D23.4 - Other benign neoplasm of skin of scalp and neck Plan: Has large cyst over left upper forehead. Would like surgical removal. (3) CAD (coronary artery disease): Code(s): I25.10 - Atherosclerotic heart disease of [place] coronary artery without angina pectoris Qualifiers: Coronary Disease-Associated Artery/Lesion type: [place] artery [place] vs. transplanted heart: [place] heart Associated angina: without angina Qualified Code(s): I25.10 - Atherosclerotic heart disease of [place] coronary artery without angina pectoris Plan: As per HPI, patient has history coronary artery disease. Patient continues on statin therapy. Will continue to follow lipids with goal LDL to be below 70 (4) Impaired glucose metabolism: Code(s): R73.09 - Other abnormal glucose Plan: Patient prediabetic, continues on metformin 500 daily. Most recent A1c is 6.4. Patient continues to have slightly elevated fasting blood sugar. Will continue to follow fasting blood sugar and A1c Will implement healthy eating habits. Goal A1c to remain below 6.5 (5) [place] (obstructive sleep apnea): Code(s): G47.33 - Obstructive sleep apnea (adult) (pediatric) Plan: Patient does have CPAP machine at home though is only fairly compliant with the nightly use of the CPAP machine. He would like to reestablish care with pulmonology for CPAP titration and discuss new CPAP mask. (6) HLD (hyperlipidemia): Code(s): E78.5 - Hyperlipidemia, unspecified Qualifiers: Hyperlipidemia type: pure hypercholesterolemia Qualified Code(s): E78.00 - Pure hypercholesterolemia, unspecified Plan: Will continue statin therapy as is with goal LDL to be below 70 (7) HTN (hypertension): Code(s): I10 - Essential (primary) hypertension Qualifiers: Hypertension type: essential hypertension Qualified Code(s): I10 - Essential (primary) hypertension Plan: Patient's blood pressure slightly elevated today in office since starting doxazosin blood pressures have been better. Does not monitor blood pressures at home and advised to do so. Goal blood pressure be below 140/90. Will consider increasing doxazosin dose to 4 mg for better blood pressure control if blood pressure is elevated at home. (8) Microalbuminuria: Code(s): R80.9 - Proteinuria, unspecified Plan: Continues to have microalbuminuria ? Related to his complex renal cyst versus uncontrolled blood pressure. Most recent microalbumin much improved. (9) Asthma: Code(s): J45.909 - Unspecified asthma, uncomplicated Qualifiers: Asthma severity: mild Asthma persistence: intermittent Asthma complication type: uncomplicated Qualified Code(s): J45.20 - Mild intermittent asthma, uncomplicated Plan: Continues to have allergy like symptoms. Has been started on albuterol inhaler and Advair inhaler which have been helpful. Still has nasal and sinus congesti on on daily basis. Will supply patient with loratadine (10) Fatigue: Code(s): R53.83 - Other fatigue Qualifiers: Fatigue type: chronic, unspecified Qualified Code(s): R53.82 - Chronic fatigue, unspecified Plan: Continues to have chronic fatigue likely related to his ? Uncontrolled obstructive sleep apnea. Will try to set patient up with pulmonology for CPAP titration and new CPAP mask fitting. Orders: Orders AMB Hemoglobin A1c Today R73.03 - Prediabetes, R73.09 - Other abnormal glucose Referrals General Surgery Referral D23.4 - Other benign neoplasm of skin of scalp and neck Pulmonology Referral G47.33 - Obstructive sleep apnea (adult) (pediatric) Medications: New loratadine 10 mg PO DAILY 90 days 90 tabs 1RF J45.20 - Mild intermittent asthma, uncomplicated Refilled amlodipine 10 mg PO DAILY 90 days 90 tabs 1RF I10 - Essential (primary) hypertension fluticasone propion-salmeterol 115-21 mcg/actuation (Advair HFA) 2 puffs inhalation BID 30 days 12 grams 3RF J45.20 - Mild intermittent asthma, uncomplicated losartan-hydrochlorothiazide 100-25 mg 1 tab PO DAILY 90 days 90 tabs 1RF I10 - Essential (primary) hypertension metformin 500 mg PO DAILY 90 days 90 tabs 2RF R73.09 - Other abnormal glucose omeprazole 40 mg PO DAILY 90 days 90 caps 1RF K21.9 - Gastro-esophageal reflux disease without esophagitis albuterol sulfate 90 mcg/actuation 2 puffs inhalation Q4-6H 30 days PRN 8.5 grams 3RF shortness of breath or wheezing aspirin 81 mg PO DAILY 90 days 90 tabs 1RF I10 - Essential (primary) hypertension atorvastatin 20 mg PO DAILY 90 tabs 1RF E78.00 - Pure hypercholesterolemia, unspecified doxazosin 2 mg PO DAILY 90 days 90 tabs 1RF I10 - Essential (primary) hypertension ibuprofen 600 mg PO Q6H PRN 14 tabs 0RF pain Patient Instructions: Goal: Blood pressure to be below 140/90, A1c to remain below 6.5 Barriers: Adherence to physical activity and healthy eating habits Coding Level of Care Code Est Pt Prev Care 40-64y(93123) Diagnoses Annual physical exam Z00.00 Dermoid cyst of scalp D23.4 Coronary artery disease involving [place] coronary artery of [place] heart without angina pectoris I25.10 Coronary Disease-Associated Artery/Lesion type: [place] artery [place] vs. transplanted heart: [place] heart Associated angina: without angina Impaired glucose metabolism R73.09 [place] (obstructive sleep apnea) G47.33 Pure hypercholesterolemia E78.00 Hyperlipidemia type: pure hypercholesterolemia Essential hypertension I10 Hypertension type: essential hypertension Microalbuminuria R80.9 Mild intermittent asthma without complication J45.20 Asthma severity: mild Asthma persistence: intermittent Asthma complication type: uncomplicated Chronic fatigue R53.82 Fatigue type: chronic, unspecified
[2023-11-26 08:56] VITALS: BP 130/90; PULSE 88; O2SAT 94; BMI 47.6
== END 2023-11-26 09:33 | disposition home or self-care (01) ==
PROVIDERS: PCP Physician Assistant; Visit Provider Physician Assistant
DX: Z00.00 Encounter for general adult medical examination without abnormal findings (principal); D23.4 Other benign neoplasm of skin of scalp and neck; I25.10 Atherosclerotic heart disease of native coronary artery without angina pectoris; R73.03 Prediabetes; G47.33 Obstructive sleep apnea (adult) (pediatric); E78.00 Pure hypercholesterolemia, unspecified; I10 Essential (primary) hypertension; R80.9 Proteinuria, unspecified; J45.20 Mild intermittent asthma, uncomplicated; R53.82 Chronic fatigue, unspecified
CPT/HCPCS: 83036; 99396

== ENCOUNTER 2024-05-12 13:57 | Outpatient (AMB) | payer OTHER, SELFPAY ==
[2024-05-12 14:18] VITALS: BP 168/102; PULSE 104; O2SAT 93; BMI 45.8
--- NOTE | 2024-05-12 14:18 | MHC.PC.OV ---
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 Accompanied by: Grand Child Allergies No Known Allergies [No Known Allergies*] Allergy (Verified 05/12/24 14:20) Medication List - Last Reconciled 05/12/24 by Husam Beatty PA-C albuterol sulfate 90 mcg/actuation 2 puffs inhalation Q4-6H PRN 30 days amlodipine 10 mg PO DAILY 90 days aspirin 81 mg PO DAILY 90 days atorvastatin 20 mg PO DAILY blood pressure kit-extra large As directed CPAP (CPAP Machine/Device) As directed doxazosin 2 mg PO DAILY 90 days fluticasone propion-salmeterol 115-21 mcg/actuation (Advair HFA) 2 puffs inhalation BID 30 days ibuprofen 600 mg PO Q6H PRN loratadine 10 mg PO DAILY 90 days losartan-hydrochlorothiazide 100-25 mg 1 tab PO DAILY 90 days metformin 500 mg PO DAILY 90 days omeprazole 40 mg PO DAILY 90 days Tobacco use date assessed: 11/26/23 Dental Screening Dental Screen Date: 11/26/23 HPI f/u HTN HPI Details Patient is a 53-year-old male here today for a follow-up visit. ? Patient has a past medical history significant for HTN, CAD, obesity, GERD, Concern-> he reports a few months ago being seen at the ER for acute shortness of breath and was found to cardiomegaly and pulmonary effusion on chest x-ray. He did not stay for full evaluation as he had to leave to take care of his children. Signs and symptoms concerning for Congestive heart failure likely secondary to his hypertension. PLAN: Will restart his antihypertensive medications, send for echocardiogram to evaluated his ejection fraction and started on Lasix for pulmonary edema and cardiomegaly. .. ? Obesity:? Has lost last office visit .He has been struggling with nighttime snacking.? unfortunately has been unable to lose any weight since last visit. ? . Hypertension:? Blood pressure slightly elevated today in office.? He reports he has lost insurance and has not been taking any of his medications. Does have microalbuminuria though has improved since previous. PLAN: Will restart amlodipine/losartan hydrochlorothiazide. .. Impaired glucose metabolism: Today's A1c much improved at 5.2 from 6.4. Will continue him on metformin 500 daily. He will continue to work on dietary and lifestyle modifications ? .. ? CAD:? Has been feeling well without any chest discomfort, shortness of breath on exertion. Most recent lipid panel showing excellent control of his LDL ?Patient does report being hospitalized years ago for chest pain and was told he had coronary artery blockage. Thus he was placed on statin therapy and aspirin. .. GERD:? Use omeprazole on a daily basis with good effect. ? .. ? [place]: ? Does have severe sleep apnea. Currently not using a CPAP machine as he is not currently living in his normal house due to dispute with his girlfriend. [facility] Medical History (Updated 05/13/24 @ 07:31 by Husam Beatty PA-C) H. 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 Clint Aguilar, Ellie Arteaga, Daron Decker and colleagues, with an educational alfonso from [employer]. Review of Systems Const Denies headache(s) Eyes Denies loss of vision ENT Denies vertigo, Denies dizziness, Denies headache(s) and Denies sore throat Card Reports dyspnea on exertion Resp Reports dyspnea on exertion and Denies wheezing GI Denies abdominal pain, Denies melena, Denies constipation, Denies diarrhea and Denies vomiting Denies dysuria, Denies urinary frequency and Denies urinary urgency Musc Denies arthralgias, Denies joint swelling, Denies numbness and Denies tingling Neuro Denies Abnormal speech present, Denies behavioral changes, Denies vertigo, Denies dizziness, Denies headache(s), Denies loss of vision, Denies memory loss, Denies numbness and Denies tingling Psych Denies anxiety, Denies behavioral changes, Denies depression, Denies memory loss and Denies panic attacks Albert/Lymph Denies easy bleeding and Denies easy bruising Aller/Immun Denies wheezing Physical exam (Primary Care) Vital Signs: Last Vital Signs Pulse 104 H 05/12/24 14:18 BP 168/102 H 05/12/24 14:18 Pulse Ox 93 05/12/24 14:18 Oxygen Delivery Method Room Air 05/12/24 14:18 BMI result Body Mass Index 45.8 BMI Assessment/Plan discussion: High BMI High, discussed plan: lifestyle, weight reduction, dietary and physical activity Tobacco/Smoking Status: Tobacco use Status Tobacco use date assessed 11/26/23 05/12/24 14:20 Patient Tobacco Use Status Former Tobacco user 05/12/24 14:20 e-Cigarette/Vaping Use Never Used 05/12/24 14:20 Thrive Assessment: Date of Thrive Assessment Date Thrive assessed 09/10/23 05/12/24 14:20 Const General: healthy appearing, no acute distress, alert and awake Nutritional Appearance: well nourished Orientation/consciousness: oriented to person, oriented to place and oriented to time HENUT Ears: TM's normal bilaterally General nose exam: Normal nasal mucous membranes and turbinates present Eyes Conjunctivae: conjunctivae normal Sclerae: sclerae normal Pupils: Equal, round and reactive pupils present Neck Neck: Yes no lymphadenopathy and Yes no JVD Thyroid: Thyroid normal Carotids: no bruits Resp Effort & Inspection: normal respiratory effort and not tachypneic Auscultation: no crackles, no rales, no rhonchi and no wheezes Cardio Rate: regular rate Rhythm: regular rhythm Heart sounds: no murmurs and normal S1 and S2 GI Palpation (GI): Soft to palpation, nontender, no hepatomegaly and no splenomegaly Auscultation: normal bowel sounds Skin General skin exam: no rashes or lesions noted and dry skin Neuro General: oriented to person, oriented to place and oriented to time Cranial nerves: Yes Equal, round and reactive pupils present Speech: No Abnormal speech present Gait exam (Neuro): Normal gait present Motor exam (neuro): no tremor noted Extrem Right upper extremity: full ROM Left upper extremity: full ROM Right lower extremity: full ROM; no edema Left lower extremity: full ROM; no edema Psych Mental Status: mental status grossly normal Speech and movement: Normal speech and movement present Affect: normal affect Attitude: cooperative Thought process: Normal thought process present Office Procedures Flu Questionnaire Does the patient have a severe egg allergy?: No Results AMB Hemoglobin A1c AMB Hemoglobin A1c 5.6 % Last Edit by ARUNA Alejandro on 05/12/24 14:32 Immunizations Fluarix Triv [id number] (PF) 45 mcg (15 mcg x 3)/0.5 mL IM syringe Performing Provider: Husam Beatty PA-C [place] [facility] [place] [facility] [place] [facility] Documented (not given) by: ARUNA Alejandro on 05/12/24 14:23 Reason Not Given: Patient Refused Results Reviewed Results Reviewed: Laboratory Last Values Hgb A1c (Clinic) 5.6 % (4.0-6.0) 05/12/24 14:20 Coding Level of Care Code Est Pt Level 4 (08776) Diagnoses Systolic congestive heart failure, NYHA class 3, unspecified congestive heart failure chronicity I50.20 Congestive heart failure chronicity: unspecified Congestive heart failure type: systolic Impaired glucose metabolism R73.09 Essential hypertension I10 Hypertension type: essential hypertension Pure hypercholesterolemia E78.00 Hyperlipidemia type: pure hypercholesterolemia Class 3 obesity E66.813 [place] (obstructive sleep apnea) G47.33 Assessment & Plan Assessment & Plan (1) CHF (congestive heart failure), NYHA class III: Code(s): I50.9 - Heart failure, unspecified Category: Medical Qualifiers: Congestive heart failure chronicity: unspecified Congestive heart failure type: systolic Qualified Code(s): I50.20 - Unspecified systolic (congestive) heart failure Plan: Patient reports being seen at the [facility] ER and got a preop evaluation and reported some cardiomegaly. He does report some exercise intolerance and shortness of breath when he is going up and downstairs. Sounds to be signs and symptoms for consistent with Congestive heart failure. Will send for echocardiogram this evaluate his EF (2) Impaired glucose metabolism: Code(s): R73.09 - Other abnormal glucose Category: Medical Plan: Today's A1c much improved at 5.6 from 6.4. He has lost weight over the summer. Will continue with his metformin 500 daily. (3) HTN (hypertension): Code(s): I10 - Essential (primary) hypertension Category: Medical Qualifiers: Hypertension type: essential hypertension Qualified Code(s): I10 - Essential (primary) hypertension Plan: Patient's blood pressure elevated today in office. Has been out of his blood pressure medication for several weeks now as he has lost his insurance. Will restart antihypertensive medications along with Lasix (4) HLD (hyperlipidemia): Code(s): E78.5 - Hyperlipidemia, unspecified Category: Medical Qualifiers: Hyperlipidemia type: pure hypercholesterolemia Qualified Code(s): E78.00 - Pure hypercholesterolemia, unspecified Plan: Will restart statin therapy. Goal LDL to remain below 100 and optimally below 70 due to his history of coronary artery disease. (5) Class 3 obesity: Code(s): E66.813 - Obesity, class 3 Category: Medical Plan: Patient does understand his BMI is over 40 will work on being more physically active and adapting to better eating habits to reduce his weight. (6) [place] (obstructive sleep apnea): Comment: Sleep study results are consistent with very severe obstructive sleep apnea. Patient needs to start CPAP therapy, which will be the best option. He was fully educated and is willing to start the therapy. I have ordered the auto Pap mode pressure setting 6-20 cm using full face mask, and also heated humidification. Will recheck him after 4 weeks of using the CPAP. Code(s): G47.33 - Obstructive sleep apnea (adult) (pediatric) Category: Medical Plan: Patient was followed by [facility] and was on a CPAP machine nightly basis. Unfortunately states it is in the sputum with his girlfriend his CPAP machine is not in his residents and has not been using a CPAP machine recently. He promises to get his CPAP machine back and start using it on a nightly basis to help him control his obstructive sleep apnea and thus his cardiovascular disease management Orders: Orders AMB Hemoglobin A1c 05/12/24 R73.09 - Other abnormal glucose CA echo transthoracic complete 05/12/24 I50.20 - Unspecified systolic (congestive) heart failure XR chest 2V 05/12/24 I50.20 - Unspecified systolic (congestive) heart failure Microalbumin, Random (w Creat) 05/12/24 I50.20 - Unspecified systolic (congestive) heart failure Lipid Panel 05/12/24 E78.00 - Pure hypercholesterolemia, unspecified Comprehensive [place]. Panel Fast 05/12/24 E78.00 - Pure hypercholesterolemia, unspecified Influenza [id number] Immunization 05/12/24 Z23 - Encounter for immunization Prostate Specific Antigen Scr 05/12/24 I10 - Essential (primary) hypertension, Z12.5 - Encounter for screening for malignant neoplasm of prostate Complete Blood Count no Diff 05/12/24 E78.00 - Pure hypercholesterolemia, unspecified Medications: New furosemide (Lasix) 20 mg PO DAILY 90 tabs 1RF 90 days I50.20 - Unspecified systolic (congestive) heart failure Refilled amlodipine 10 mg PO DAILY 90 tabs 1RF 90 days I10 - Essential (primary) hypertension fluticasone propion-salmeterol 115-21 mcg/actuation (Advair HFA) 2 puffs inhalation BID 12 grams 3RF 30 days J45.20 - Mild intermittent asthma, uncomplicated metformin 500 mg PO DAILY 90 tabs 2RF 90 days R73.09 - Other abnormal glucose albuterol sulfate 90 mcg/actuation 2 puffs inhalation Q4-6H PRN 8.5 grams 3RF shortness of breath or wheezing 30 days aspirin 81 mg PO DAILY 90 tabs 1RF 90 days I10 - Essential (primary) hypertension atorvastatin 20 mg PO DAILY 90 tabs 1RF E78.00 - Pure hypercholesterolemia, unspecified ibuprofen 600 mg PO Q6H PRN 14 tabs 0RF pain omeprazole 40 mg PO DAILY 90 caps 1RF 90 days K21.9 - Gastro-esophageal reflux disease without esophagitis
== END 2024-05-12 14:40 | disposition home or self-care (01) ==
PROVIDERS: PCP Physician Assistant; Visit Provider Physician Assistant
DX: I50.20 Unspecified systolic (congestive) heart failure (principal); R73.09 Other abnormal glucose; Z68.42 Body mass index [BMI] 45.0-49.9, adult; E66.813 Obesity, class 3; I10 Essential (primary) hypertension; E78.00 Pure hypercholesterolemia, unspecified; G47.33 Obstructive sleep apnea (adult) (pediatric)

== ENCOUNTER → 2024-05-12 13:57 | Outpatient (BNVA) | payer OTHER, SELFPAY | PROVIDERS: PCP Physician Assistant; Visit Provider Physician Assistant | DX: I11.0 Hypertensive heart disease with heart failure (principal); I50.20 Unspecified systolic (congestive) heart failure; R73.09 Other abnormal glucose; E78.00 Pure hypercholesterolemia, unspecified; E66.813 Obesity, class 3; Z68.42 Body mass index [BMI] 45.0-49.9, adult; G47.33 Obstructive sleep apnea (adult) (pediatric); Z71.3 Dietary counseling and surveillance | CPT/HCPCS: 83036; 90471; 99212 ==

== ENCOUNTER 2024-05-20 08:48 | Outpatient (REF) | payer OTHER, SELFPAY ==
--- NOTE | ~2024-05-20 | XR_ITS ---
CLINICAL HISTORY: I50.20 - Unspecified systolic (congestive) heart failure 2 views chest Comparison: CR/SR - XR CHEST 1V - 04/30/23 06:00 EST Findings: Cardiac and mediastinal contours are normal. Mild interstitial prominence with scattered peribronchial thickening. No focal consolidation. No effusion. No pneumothorax. No acute osseous finding. Impression: Mild interstitial prominence with scattered peribronchial thickening. No focal consolidation. This document has been electronically signed by: Alexys Ferrer MD on 05/20/2024 21:32:52
[2024-05-20 09:36] LABS: Hematocrit 46.5 % (42.0-52.0); Hemoglobin 14.8 g/dl (14.0-18.0); Mean Corpuscular HGB Conc 31.8 g/dl (31.0-36.0); Mean Corpuscular Hemoglobin 27.5 pg (27.0-33.0); Mean Corpuscular Volume 86.3 fL (80.0-98.0); Mean Platelet Volume 10.4 fL (9.4-12.4); Platelet Count 203 X10*3/uL (160-400); Red Blood Count 5.39 X10*6/uL (4.60-5.80); Red Cell Distribution Width 14.6 % (11.0-16.0); White Blood Count 8.3 X10*3/uL (4.8-10.8)
[2024-05-20 10:04] LABS: Alanine Aminotransferase 26 U/L (0-40); Anion Gap 11 (12-20); Aspartate Amino Transferase 23 U/L (5-37); Bilirubin Total 0.5 mg/dL (0.0-1.0); Blood Urea Nitrogen 13 mg/dL (9-16); Calcium 9.3 mg/dL (8.4-10.2); Carbon Dioxide 29 mmol/L (22-29); Chloride 106 mmol/L (96-108); Estimated Glomerular Filt Rate > 60; Glucose Fasting 113 mg/dL (60-99); Potassium 3.7 mmol/L (3.3-5.1); Sodium 142 mmol/L (135-145); Total Protein 7.4 g/dL (6.5-8.0)
[2024-05-20 10:05] LABS: Albumin Level 4.3 g/dL (3.5-5.0); Alkaline Phosphatase 84 U/L (39-117); Cholesterol 103 mg/dL (<200); HDL Cholesterol 31 mg/dL (>40); LDL Cholesterol Calculated 57 mg/dL (<100); Triglycerides 78 mg/dL (<150)
[2024-05-20 10:25] LABS: Creatinine Urine 346.38 mg/dL; Microalbum/Creatinine Ratio Ur 70.4 ug/mg cr (<30)
[2024-05-20 10:25] LABS: Prostate Specific Antigen Scr 1.01 ng/mL (<0.05-4.0)
[2024-05-25 14:38] LABS: Testosterone, Free 74.7 pg/mL (35.0-155.0); Testosterone, Total 238 ng/dL (250-1100)
== END 2024-05-20 08:49 | disposition home or self-care (01) ==
LOC: HO.LAB 08:48
PROVIDERS: PCP Physician Assistant; Visit Provider Physician Assistant
DX: E66.01 Morbid (severe) obesity due to excess calories (principal); Z68.41 Body mass index [BMI] 40.0-44.9, adult; R53.82 Chronic fatigue, unspecified; I50.20 Unspecified systolic (congestive) heart failure; E78.00 Pure hypercholesterolemia, unspecified; I10 Essential (primary) hypertension; Z12.5 Encounter for screening for malignant neoplasm of prostate
CPT/HCPCS: 36415; 71046; 80053; 80061; 82043; 82570; 84153; 84402; 84403; 85027

== ENCOUNTER → 2024-05-20 09:07 | Outpatient (BNV) | payer OTHER, SELFPAY | PROVIDERS: PCP Physician Assistant; Visit Provider Radiology Vascular & Interventional Radiology | DX: I50.20 Unspecified systolic (congestive) heart failure (principal); J84.9 Interstitial pulmonary disease, unspecified | CPT/HCPCS: 71046 ==

== ENCOUNTER → 2024-05-28 12:41 | Outpatient (REF) | payer OTHER, SELFPAY ==
--- NOTE | 2024-05-28 12:44 | CA_ITS ---
Transthoracic Echocardiogram Patient (Last, First, Middle): Darwin Carballo F Gender: Male Date of : 1970 Age: 53 Procedure Date: 05/28/2024 Procedure Type: Transthoracic Echocardiogram Location: OP Height: 172.72 cm Weight: 136.53 kg BSA: 2.43 m2 Heart Rate: bpm BP: 150 / 88 mmHg Medical Surgical Tech: TO Referring MD: Husam Beatty PA-C Furnace Feeder: Armando Turner MD Symptoms: I50.20 - Unspecified systolic (congestive) heart failure Study Quality: Fair/Contrast ECG Rhythm: Sinus Conclusions: - 1. Moderate to severe LV systolic dysfunction with LVEF of 30 35% with mild LVH with severe hypertrophy of the basal septum with at least grade 2 diastolic dysfunction with underlying regional wall motion abnormality consistent with coronary artery disease 2. Poorly visualized cardiac valves with normal cardiac valvular Dopplers 3. Moderately dilated left atrium as well as right ventricle with preserved RV systolic function 4. Normal calculated RV systolic pressure 5. Mildly dilated ascending aorta Findings Procedure Information Contrast agent, definity, is being given per protocol without apparent complications. Left Ventricle Normal left ventricular cavity size. There is mildly increased left ventricular wall thickness. The left ventricular systolic function is moderate to severely decreased. The visually estimated ejection fraction is between 30-35%. There is evidence of regional wall motion abnormalities. There is no dynamic left ventricular outflow tract obstruction. Spectral Doppler is indicative of a pseudonormal filling pattern. E/E prime ratio is >15, consistent with elevated filling pressures. Evidence suggests grade II (moderate) diastolic dysfunction. There is severe septal asymmetric hypertrophy. Right Ventricle Moderately increased right ventricular cavity size. There is normal right ventricular systolic function. Atria The left atrium is moderately dilated. Interatrial shunt cannot be excluded. The right atrium was not well visualized. Aortic Valve The aortic valve was not well visualized. There is no aortic valve stenosis. There is no aortic valve regurgitation. Mitral Valve The mitral valve was not well visualized. There is no mitral valve regurgitation. There is no mitral valve stenosis. Pulmonic Valve The pulmonic valve was not well visualized. Tricuspid Valve Likely normal tricuspid valve structure and function. There is trace tricuspid valve regurgitation. The right ventricular systolic pressure is normal. The right ventricular systolic pressure is 23 mmHg. Normal right atrial pressure. There is no evidence of pulmonary hypertension. Great Vessels The aorta was not well visualized. The pulmonary artery was not well visualized. There is mild dilatation of the ascending aorta measuring 4.00 cm. Venous The inferior vena cava is normal in size. Pericardium/Pleural The pericardium was not well visualized. Prior Study Comparison No prior study available for comparison. Measurements 2D Linear Measurements IVSd: 1.92 0.6-0.9/0.6-1.0 cm LVIDd: 5.51 3.9-5.3/4.2-5.9 cm LVIDd Index: 2.27 2.4-3.2/2.2-3.1 cm/m2 LVIDs: 4.52 2.0-3.6 cm LVPWd: 1.25 0.7-1.1 cm LA Diam: 4.70 2.7-3.8/3.0-4.0 cm LAIDs Index: 1.93 1.5-2.3 cm/m2 LV Mass: 506.16 67-162/88-224 g LV Mass Index: 208.29 43-95/49-115 g/m2 LVOT Diam: 2.30 3.0+(-)1.3 cm 2D Systolic Function EF 4C: 34.30 >55% EF 2C: 32.80 >55% EF BiP: 33.10 >55% Mitral Valve MV Pk E: 0.83 MV PK A: 0.30 MV Decel Time: 159.00 E/A: 2.80 E'Lateral: 5.00 E'Medial: 3.37 E/E' Med: 24.70 E/E' Lat: 16.60 PHT: 47.00 MVA PHT: 4.68 Decel Emery: 5.22 Aortic Valve AoV Pk Elie: 1.33 AoV Mn Elie: 0.95 AoV VTI: 0.23 AoV Pk Grad: 7.00 Aov Mn Grad: 4.00 CLARISSA Cont.VTI: 2.92 LVOT LVOT Pk Elie: 0.91 LVOT Mn Elie: 0.64 LVOT VTI: 0.16 LVOT Pk Grad: 3.00 LVOT Mn Grad: 2.00 LVOT Diam: 2.30 LVOT Area: 4.15 Diastolic Function MV Pk E: 0.83 MV Pk A: 0.30 E/A: 2.80 E'Medial: 3.37 E/E' Med: 24.70 E' Laterial: 5.00 E/E' Lat: 16.60 Right Ventricle TAPSE (mm): 24.80 TVS' Elie: 13.60 Tricuspid Valve TR Pk Elie: 2.23 TR Pk Grad: 20.00 RA Press: 3.00 RVSP: 23.00 Great Vessels Aorta Sinus of Valsalva: 3.73 2.0-3.5 cm Ao Asc: 4.00 2.1-3.4 cm Ao Arch: 3.70 Updated in Other Vendor System with Status of Final Armando Turner MD electronically signed on 05/29/2024 12:46:18 PM with status of Final
== END ==
LOC: HO.CARD 12:41
PROVIDERS: PCP Physician Assistant; Visit Provider Physician Assistant
DX: I50.20 Unspecified systolic (congestive) heart failure (principal)
CPT/HCPCS: 93306; Q9957

== ENCOUNTER → 2024-05-28 12:44 | Outpatient (BNV) | payer OTHER, SELFPAY | PROVIDERS: PCP Physician Assistant; Visit Provider Internal Medicine Cardiovascular Disease | DX: I42.2 Other hypertrophic cardiomyopathy (principal); I50.30 Unspecified diastolic (congestive) heart failure | CPT/HCPCS: 93306 ==

== ENCOUNTER 2024-06-11 09:16 | Outpatient (AMB) | payer OTHER, SELFPAY ==
[2024-06-11 09:30] VITALS: BP 140/84; PULSE 92; O2SAT 96; BMI 46.4
--- NOTE | 2024-06-11 09:30 | MHC.OFFVIS ---
Vital Signs 06/11/24 09:30 Height 5 ft 8 in Weight 305 lb 5.443 oz BMI 46.4 BP 140/84 H Blood Pressure Location Lt brachial Position Sitting Pulse 92 Pulse Source Pulse Oximeter Pulse Oximetry (%) 96 Oxygen Delivery Method Room Air Intake Visit Reasons: Asthma Intake Note: pt is here as a new patient for copd, he was in ER at [facility] for chest tightness and short of breath but had to leave without being seen. told fluid in lungs, he does have a cpap, but is back on trying to use it. Utility Person Required: No Allergies No Known Allergies [No Known Allergies*] Allergy (Verified 06/11/24 09:32) Medication List - Last Reconciled 06/11/24 by Julianna Villanueva MD albuterol sulfate 90 mcg/actuation 2 puffs inhalation Q4-6H PRN 30 days amlodipine 10 mg PO DAILY 90 days aspirin 81 mg PO DAILY 90 days atorvastatin 20 mg PO DAILY blood pressure kit-extra large As directed CPAP (CPAP Machine/Device) As directed doxazosin 2 mg PO DAILY 90 days fluticasone propion-salmeterol 115-21 mcg/actuation (Advair HFA) 2 puffs inhalation BID 30 days furosemide (Lasix) 20 mg PO DAILY 90 days ibuprofen 600 mg PO Q6H PRN loratadine 10 mg PO DAILY 90 days losartan-hydrochlorothiazide 100-25 mg 1 tab PO DAILY 90 days metformin 500 mg PO DAILY 90 days omeprazole 40 mg PO DAILY 90 days Do you need a note to return to daycare/school/sports/work: No HPI HPI Asthma: Details: 53 years old gentleman, with longstanding history of morbid obesity, Diagnosed in 2020 severe obstructive sleep apnea. He was started on auto PAP mode pressure setting 6-20 cm, and subsequently he also had CPAP titration study in the sleep lab in early 2021. After the CPAP titration he was told that he would need street CPAP with pressure of 15 cm. Apparently he just kept his CPAP with auto PAP mode, and used it only off and on. He has not been followed up since then for his sleep disorder and use of CPAP. 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 He claims that lately he has started using his CPAP but his mask does not fit well, In fact he has had no new supplies for the past few years, as he has just not use the CPAP. He does give history of waking 2 or 3 times a day during the night to go to the bathroom. He does admit that sometime he wakes up with gasping feeling during the night. He denies daytime sleepiness except if he is sitting idle at home then he will have tendency to doze off. He was recently seen at [facility] emergency room for chest tightness and cough. He left the emergency room without seeing by a physician. His PCP told him he may have asthma, and prescribed albuterol inhaler to use p.r.n., which he is not using . He claims that he does not have any asthma like condition. This gentleman is a nonsmoker quit occasional smoking back in teenage. He denies using any illicit drugs. [facility] Medical History H. 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 Cognitive needs: No Hearing needs: No Vision needs: No Review of Systems Const All systems reviewed & are unremarkable except as noted in HPI and below Eyes Reports no additional complaints ENT Reports no additional complaints Card Denies chest pain, Denies irregular heart rhythm, Denies leg edema and Denies lightheadedness Resp Reports as per HPI GI Reports no additional complaints and Reports heartburn (Treated with omeprazole p.r.n.) Reports nocturia Musc Reports no additional complaints Skin/Breast Reports system reviewed and no additional complaints, except as documented Neuro Reports no additional complaints Psych Reports no additional complaints Physical Exam Vital Signs: Last Vital Signs Pulse 92 06/11/24 09:30 BP 140/84 H 06/11/24 09:30 Pulse Ox 96 06/11/24 09:30 Oxygen Delivery Method Room Air 06/11/24 09:30 BMI result Body Mass Index 46.4 Const General: comfortable, no acute distress, alert and awake; No healthy appearing (Except for being overweight) Orientation/consciousness: patient oriented x3 HEENT Head: Yes normal to inspection General nose exam: No nasal polyps present and No nasal discharge present Face and sinus: Yes sinuses nontender Mouth: oropharynx abnormals (Narrow and crowded, Mallampati class 3) Throat: Yes posterior oropharynx normal Eyes General: appearance normal, both eyes and all related structures Neck Other: Neck circumference 18 in Neck: Yes normal visual inspection, Yes no lymphadenopathy, Yes trachea midline and Yes no JVD Thyroid: Thyroid normal Chest Chest palpation & inspection: normal inspection of the chest, normal palpation of entire chest wall and no tenderness Resp Effort & Inspection: normal respiratory effort Auscultation: clear to auscultation bilaterally, no crackles and no wheezes Cardio Palpation: normal PMI Rate: regular rate Rhythm: regular rhythm Heart sounds: no gallops and no murmurs Peripheral pulses: Peripheral pulses 2+ throughout GI Palpation (GI): Soft to palpation, nontender, No hepatosplenomegaly present and no masses Auscultation: normal bowel sounds Back/Spine/Pelvis Thoracic/Lumbar Spine: thoracic and lumbar spine normal to inspection Skin General skin exam: no rashes or lesions noted Neuro General: patient oriented x3 and no focal motor deficits Cranial nerves: Yes CN's II-XII intact bilaterally Extrem General: Yes normal to inspection, Yes no clubbing, cyanosis or edema and Yes no calf tenderness Psych Appearance: grossly normal and well kempt Speech and movement: Normal speech and movement present Results Reviewed Results Reviewed: Printed the compliance report for the last 30 nights and basically he used only 1 night for a few hours. Residual AHI is still 26.3. So basically he is totally noncompliant. Assessment & Plan Assessment & Plan (1) Morbid obesity with BMI of 40.0-44.9, adult: Comment: He remains morbidly obese current BMI 46.4 Code(s): E66.01 - Morbid (severe) obesity due to excess calories; Z68.41 - Body mass index [BMI] 40.0-44.9, adult Category: Medical Plan: Talked to him about weight reduction. He did go to weight management program but when they told him about surgery he walked away. I think he needs good Education about his calories intake and type of foods. I am. referring him for Dietry consultation. (2) [place] (obstructive sleep apnea): Comment: Sleep study in 2020 results were consistent with very severe obstructive sleep apnea. Patient was started on CPAP therapy, with auto Pap mode initially and then after CPAP titration he was supposed to be on CPAP of 15 cm. He did get CPAP equipment , but perhaps has not used it at all. 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 Code(s): G47.33 - Obstructive sleep apnea (adult) (pediatric) Category: Medical Plan: I had a good discussion with him, told him that he must use CPAP regularly. ,He had question about the mask we have given him a fullface mask from the office ( F-30 i wide ) He tells me that his CPAP machine is functional, offered him to bring the machine here to the office so that we can check. Stress that he has to be fully compliant , for his good health, and also to pass the DOT exam. (3) Asthma: Comment: Patient claims that he does not have any chronic breathing problems, but lately he has. had cough with some congestion Clinically diagnosed to have possible ASTHMA , prescribed albuterol inhaler as well as Flovent but he has not use these inhalers regularly, Today his lungs are clear. Code(s): J45.909 - Unspecified asthma, uncomplicated Category: Medical Qualifiers: Asthma complication type: uncomplicated Asthma persistence: intermittent Asthma severity: mild Qualified Code(s): J45.20 - Mild intermittent asthma, uncomplicated Plan: Spirometry before and after bronchodilators is ordered. And depending upon the results I would start him on more appropriate regimen. If needed Orders: Orders AMB Spirometry Testing Today E66.01 - Morbid (severe) obesity due to excess calories, J45.20 - Mild intermittent asthma, uncomplicated, Z68.41 - Body mass index [BMI] 40.0-44.9, adult Referrals [facility] Nutrition Referral E66.01 - Morbid (severe) obesity due to excess calories, G47.33 - Obstructive sleep apnea (adult) (pediatric), Z68.41 - Body mass index [BMI] 40.0-44.9, adult Coding Level of Care Code Est Pt Level 4 (01182) Diagnoses Morbid obesity with BMI of 40.0-44.9, adult E66.01; Z68.41 [place] (obstructive sleep apnea) G47.33 Mild intermittent asthma without complication J45.20 Asthma complication type: uncomplicated Asthma persistence: intermittent Asthma severity: mild
--- OUTSIDE RECORDS SUMMARY | 2024-06-11 10:44 | XMS_ITS | Clinical Summary ---
Demographics Address [address] [place] [address] Home Phone Work Phone Email Address Preferred Language en Marital Status Unknown Quaker Affiliation Unknown Race Other Race Ethnic Group or Author Organization [employer] Address [address] [facility] [address] [facility] [address] [place] [address] Care Team Providers Care Printer Helper Name Role Phone Unavailable Primary Care Provider Unavailabl e Social History Tobacco Use Types Packs/Day Years Used Date Smoking Tobacco: Never Assessed Sex and Gender Information Value Date Recorded Sex Assigned at Male 03/13/2022 10:35 AM EDT Legal Sex Male 10:35 AM EDT Gender Identity Male 03/13/2022 10:35 AM EDT Sexual Orientation Straight 03/13/2022 10 :35 AM EDT Plan of Treatment Health Maintenance Due Date Last Done Comments CT Colonography 1972 Colonoscopy 1972 Colorectal Cancer Screening 1972 Depression Screening 1972 FIT DNA/Cologuard 1972 FIT 1972 FOBT 1972 Lipid Panel 1972 Sigmoidoscopy 1972 Alcohol/Substance Use Screening 1984 Tobacco Screening 1984 Family Planning (PISQ) 10/26/1987 Zoster Vaccines (1 of 2) 2022 COVID-19 Vaccine (1 - 2023-2 5 season) 2024 Influenza Vaccine (#1) 2024 DTaP/Tdap/Td Vaccines (2 - T d or Tdap) 08/19/2025 08/20/2015 RSV Patients and Patients Aged 60 years or older (1 - 1-dose 75+ series) 10/26/2047 Hepatitis B Vaccines Completed 09/13/2016, 05/10/2016, 04/10/2016 HIB Vaccines Aged Out No longer eligi ble based on patient's age to complete this topic HPV Vaccines Aged Out No longer eligi ble based on patient's age to complete this topic Hepatitis A Vaccines Aged Out No long er eligible based on patient's age to complete this topic IPV Vaccines Aged Out No longer eligi ble based on patient's age to complete this topic Meningococcal Vaccine Aged Out No jeremias tom eligible based on patient's age to complete this topic Pneumococcal Vaccine: Pediatrics (0 to 5 Years) and At-Risk Patients (6 to 49) Years) Aged Out No longer eligible b ased on patient's age to complete this topic RSV under 20 months Aged Out No longe r eligible based on patient's age to complete this topic Rotavirus Vaccines Aged Out No longer eligible based on patient's age to complete this topic
--- OUTSIDE RECORDS SUMMARY | 2024-06-11 10:44 | XMS_ITS | Encounter Summary ---
Author Organization [employer] Address [address] [place] [address] [address] [place] [address] Care Team Providers Care Telemarketing Manager Name Role Phone Unavailable Primary Care Provider Unavailabl e Encounter Details Date Type Department Care Team (Latest Contact Info) Description 09/23/2018 Abstract [facility] CONVERSIONS Dental, Provider, DDS Social History Tobacco Use Types Packs/Day Years Used Date Smoking Tobacco: Never Assessed Sex and Gender Information Value Date Recorded Sex Assigned at Male 03/13/2022 10:35 AM EDT Legal Sex Male 10:35 AM EDT Gender Identity Male 03/13/2022 10:35 AM EDT Sexual Orientation Straight 03/13/2022 10 :35 AM EDT documented as of this encounter Plan of Treatment Not on file documented as of this encounter Visit Diagnoses Not on filedocumented in this encounter
--- OUTSIDE RECORDS SUMMARY | 2024-06-11 10:44 | XMS_ITS | Clinical Summary ---
Author Organization [facility] Facility Address [address] [place] [address] Care Team Providers Care Career Based Intervention Coordinator Name Role Phone Husam Beatty Primary Care Provider [phone] Social History Tobacco Use Types Packs/Day Years Used Date Smoking Tobacco: Never Assessed Sex and Gender Information Value Date Recorded Sex Assigned at Not on file Legal Sex Male 9:01 AM EDT Gender Identity Not on file Sexual Orientation Not on file Plan of Treatment Health Maintenance Due Date Last Done Comments Hepatitis B Vaccine (1 of 3 - 19+ 3-dose series) 10/26/1991 Colorectal Cancer Screening: Annual FOBT 2021 Colorectal Cancer Screening: Colonoscopy 2021 Colorectal Cancer Screening: Sigmoidoscopy 2021 Influenza Vaccine (#1) 2024 Pneumococcal Vaccine: Pediat rics (0 to 5 Years) and At-Risk Patients (6 to 64 Years) Aged Out No longer eligible b ased on patient's age to complete this topic Insurance [facility] MEDICAID * Guarantor: Darwin Carballo Account Type Relation to Patient Date of Phone Billing Address Personal/Family Self [address] [place] [address] [facility] MEDICAID Care Teams Career Based Intervention Coordinator Relationship Specialty Start Date End Date Husam Beatty PA [address] [place] [address], [address] [place], [place] [phone] PCP - General Physician Want Ad Receiver 08/30/22
== END 2024-06-11 10:17 | disposition home or self-care (01) ==
PROVIDERS: PCP Physician Assistant; Referring Provider Physician Assistant; Visit Provider Internal Medicine
DX: E66.01 Morbid (severe) obesity due to excess calories (principal); Z68.41 Body mass index [BMI] 40.0-44.9, adult; G47.33 Obstructive sleep apnea (adult) (pediatric); J45.20 Mild intermittent asthma, uncomplicated
CPT/HCPCS: 99214

== ENCOUNTER → 2024-06-11 09:16 | Outpatient (BNVA) | payer OTHER, SELFPAY | PROVIDERS: PCP Physician Assistant; Referring Provider Physician Assistant; Visit Provider Internal Medicine | DX: J45.20 Mild intermittent asthma, uncomplicated (principal); G47.33 Obstructive sleep apnea (adult) (pediatric); E66.01 Morbid (severe) obesity due to excess calories; Z99.89 Dependence on other enabling machines and devices; Z68.41 Body mass index [BMI] 40.0-44.9, adult | CPT/HCPCS: 99212 ==

== ENCOUNTER 2024-06-19 09:57 | Outpatient (REF) | payer OTHER, SELFPAY ==
--- NOTE | 2024-06-19 10:01 | PFT_ITS ---
Flows: FEV1: 54 % of predicted at 2.02 L FVC: 54 % of predicted at 2.58 L FEV1/FVC: 79 % Bronchodilator response: Absence Volumes: Total lung capacity: 55 % of predicted at 3.82 L Residual volume: 67 % of predicted at 1.24 L Slow vital capacity: 50 % of predicted at 2.59 L Expiratory reserve volume: 0 % of predicted at 0.12 L Diffusion capacity: Mildly decreased, corrects to normal after adjustment for alveolar ventilation. Impression: Moderate restrictive ventilatory defect with no bronchodilator response. Decreased expiratory reserve volume suggests extrathoracic restriction likely secondary to abdominal obesity. Combination of restrictive ventilatory defect and decreased diffusion capacity suggests underlying pulmonary parenchymal disease. Clinical correlation is advised. MTDD
--- OUTSIDE RECORDS SUMMARY | 2024-06-19 10:01 | XMS_ITS | Clinical Summary ---
Demographics Address [address] [facility] [address] [facility] [address] [place] [address] Home Phone Work Phone Email Address Preferred Language en Marital Status Unknown Amish Affiliation Unknown Race Other Race Ethnic Group or Author Organization [employer] Address [address] [facility] [address] [place] [address] Care Team Providers Care Dye Colorist Formulator Name Role Phone Unavailable Primary Care Provider [...] Tobacco Screening 1984 Family Planning (PISQ) 10/26/1987 Pneumococcal Vaccine: 50+ Years (1 of 1 - PCV) 2022 Zoster Vaccines (1 of 2) 2022 COVID-19 Vaccine ( - 2023-2 5 season) 2024 Influenza Vaccine [...]
--- OUTSIDE RECORDS SUMMARY | 2024-06-19 10:01 | XMS_ITS | Clinical Summary ---
Author Organization [facility] Facility Address [address] [place] [id number] Care Team Providers Care Supervisor Tellers Name Role Phone Husam Beatty Primary Care Provider Social History Tobacco Use Types Packs/Day Years [...] patient's age to complete this topic Insurance [facility] MEDICAID * Guarantor: Darwin Carballo Account Type Relation to Patient Date of Phone Billing Address Personal/Family Self [address] [place] [address] [facility] MEDICAID Care Teams Supervisor Tellers Relationship Specialty Start Date End Date Husam Beatty PA [address] [place] [address], [address] [place], [place] [phone] PCP - General Physician Investment Accounting Clerk 08/30/22
--- OUTSIDE RECORDS SUMMARY | 2024-06-19 10:01 | XMS_ITS | Encounter Summary ---
Author Organization [employer] Address [address] [place] [address] [address] [place] [address] Care Team Providers Care Creative Recruiter Name Role Phone Unavailable Primary Care Provider Unavailabl e Encounter Details Date Type Department Care Team (Latest Contact Info) Description 09/23/2018 Abstract [facility] CONVERSIONS Dental, Provider, DDS Social History Tobacco [...]
== END 2024-06-19 09:58 | disposition home or self-care (01) ==
LOC: HO.RESP 09:57
PROVIDERS: Visit Provider Internal Medicine
DX: J45.20 Mild intermittent asthma, uncomplicated (principal)
CPT/HCPCS: 94010; 94640; 94727; 94729

== ENCOUNTER → 2024-06-19 10:01 | Outpatient (BNV) | payer OTHER, SELFPAY | PROVIDERS: Visit Provider Internal Medicine Pulmonary Disease | DX: J45.20 Mild intermittent asthma, uncomplicated (principal) | CPT/HCPCS: 94060; 94727; 94729 ==

== ENCOUNTER 2024-07-14 10:56 | Outpatient (AMB) | payer OTHER, SELFPAY ==
[2024-07-14 11:16] VITALS: BP 156/92; PULSE 90; TEMP 36.3; O2SAT 96; BMI 46.8
--- NOTE | 2024-07-14 11:16 | MHC.PC.OV ---
Vital Signs 07/14/24 11:16 Height 5 ft 8 in Weight 308 lb BMI 46.8 BP 156/92 H Blood Pressure Location Lt brachial Position Sitting Pulse 90 Pulse Source Pulse Oximeter Temp 97.3 F Temp Source Temporal Artery Scan Pulse Oximetry (%) 96 Oxygen Delivery Method Room Air Intake Visit Reasons: Follow-up hypertension Fermenter Required: No Accompanied by: Self / Same As Patient Allergies No Known Allergies [No Known Allergies*] Allergy (Verified 07/14/24 11:29) Medication List - Last Reconciled 07/14/24 by Husam Beatty PA-C albuterol sulfate 90 mcg/actuation 2 puffs inhalation Q4-6H PRN 30 days amlodipine 10 mg PO DAILY 90 days aspirin 81 mg PO DAILY 90 days atorvastatin 20 mg PO DAILY blood pressure kit-extra large As directed CPAP (CPAP Machine/Device) As directed doxazosin 2 mg PO DAILY 90 days fluticasone propion-salmeterol 115-21 mcg/actuation (Advair HFA) 2 puffs inhalation BID 30 days furosemide (Lasix) 20 mg PO DAILY 90 days ibuprofen 600 mg PO Q6H PRN loratadine 10 mg PO DAILY 90 days losartan-hydrochlorothiazide 100-25 mg 1 tab PO DAILY 90 days metformin 500 mg PO DAILY 90 days omeprazole 40 mg PO DAILY 90 days Tobacco use date assessed: 07/14/24 Dental Screening Dental Screen Date: 07/14/24 Did you have a dental visit in the last 12 months?: Yes Did you have a dental problem in the last 6 months where you did not have access to dental care?: No Was dental information given to patient?: Patient has dentist HPI Follow-up hypertension HPI Details Patient is a 53-year-old male here today for a follow-up visit. ? Patient has a past medical history significant for HTN, CAD, obesity, GERD, Concern-> he reports a few months ago being seen at the ER for acute shortness of breath and was found to cardiomegaly and pulmonary effusion on chest x-ray. He did not stay for full evaluation as he had to leave to take care of his children. Signs and symptoms concerning for Congestive heart failure likely secondary to his hypertension. ---> Shortness of breath-- recent echocardiogram showing--> Moderate to severe LV systolic dysfunction with LVEF of 30 35% with mild LVH with severe hypertrophy of the basal septum with at least grade 2 diastolic dysfunction with underlying regional wall motion abnormality consistent with coronary artery disease . Since starting furosemide he reports his breathing has been much better. PLAN: Will set him up with Cardiology, will continue lisinopril hydrochlorothiazide and furosemide .. ? Obesity:? Has lost last office visit .He has been struggling with nighttime snacking.? unfortunately has been unable to lose any weight since last visit. ? . Hypertension:? Blood pressure slightly elevated today in office.? He reports he has lost insurance and has not been taking any of his medications. Does have microalbuminuria though has improved since previous. .. Impaired glucose metabolism: Today's A1c at 5.5. Has been intermittently using metformin. PLAN : For now will hold off on metformin and continue with dietary modifications ? .. ? CAD:? Has been feeling well without any chest discomfort, shortness of breath on exertion. Most recent lipid panel showing excellent control of his LDL ?Patient does report being hospitalized years ago for chest pain and was told he had coronary artery blockage. Thus he was placed on statin therapy and aspirin. .. GERD:? Use omeprazole on a daily basis with good effect. ? .. ? [place]: ?Has establish care with pulmonology, has been trying to use CPAP machine recently night though reports some coughing fits that do not allow him to keep the CPAP mask on. [facility] Medical History H. 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 1. Little interest or pleasure in doing things: more than half the days 2. Feeling down, depressed, or hopeless: more than half the days 3. Trouble falling or staying asleep, or sleeping too much: nearly every day 4. Feeling tired or having little energy: nearly every day 5. Poor appetite or overeating: nearly every day 6. Feeling bad about yourself - or that you are a failure or have let yourself or your family down: several days 7. Trouble concentrating on things, such as reading the newspaper or watching television: not at all 8. Moving or speaking so slowly that other people could have noticed. Or the opposite - being so fidgety or restless that you have been moving around a lot more than usual: not at all 9. Thoughts that you would be better off or of hurting yourself in some way: not at all Total score: 14 Depression Screening Interpretation: Positive Depression Screening Follow-up: Existing condition and Declines treatment Depression Screening Done: Yes 81706 - PHQ-9 Billing: Yes Source: Developed by Drs. Clint Aguilar, Ellie Arteaga, Daron Decker and colleagues, with an educational alfonso from [employer]. Thrive Questionnaire Date Thrive assessed: 07/14/24 I am a: Patient What is your living situation today?: I have a steady place to live Within the past 12 months, did the food you bought not last and you didn't have the money to get more?: Never true Within the past 12 months, did you worry whether your food would run out before you got money to buy more?: Never true Do you have trouble paying for medicines?: No Do you have trouble getting transportation to medical appointments?: No Do you have trouble paying your heating and electricity bill?: No Do you have trouble taking care of your child, family member or friend?: No Do you have trouble with day-to-day activities such as bathing, preparing meals, shopping, managing finances, etc.?: No Are you currently unemployed and looking for a job?: No Are you interested in more education?: No Please select the resources that you would like help with: None Currently or been in a relationship where the following occur: No concerns reported THRIVE Score: 0 AUDIT C Alcohol Use Questionnaire (AUDIT-C) 1. How often do you have a drink containing alcohol?: Monthly or less 2. How many drinks containing alcohol do you have on a typical day when you are drinking?: 1 or 2 3. How often do you have six or more drinks on one occasion?: Never Total Score: 1 Score Reviewed/Action Taken: No MARGRET-7 AMB Questionnaire MARGRET-7 Date MARGRET - 7 assessed: 07/14/24 Feeling nervous, anxious, or on edge: 0 = Not at all Not being able to stop or control worryin = Not at all Worrying too much about different things: 0 = Not at all Trouble relaxin = Not at all Being so restless that it is hard to sit still: 0 = Not at all Becoming easily annoyed or irritable: 0 = Not at all Feeling afraid as if something awful might happen: 0 = Not at all Total MARGRET-7 score (0-4 normal; 5-9 mild; 10-14 moderate; 15-21 severe): 0 Source: Developed by Drs. Clint Aguilar, Ellie Arteaga, Daron Decker and colleagues, with an educational alfonso from [employer]. MARGRET-7 Assessment Billing MARGRET-7 Assessment Tool: MARGRET-7 Assessment 14708 Physical exam (Primary Care) Vital Signs: Last Vital Signs Temp 97.3 F 07/14/24 11:16 Pulse 90 07/14/24 11:16 BP 156/92 H 07/14/24 11:16 Pulse Ox 96 07/14/24 11:16 Oxygen Delivery Method Room Air 07/14/24 11:16 BMI result Body Mass Index 46.8 Tobacco/Smoking Status: Tobacco use Status Tobacco use date assessed 07/14/24 07/14/24 11:23 Patient Tobacco Use Status Former Tobacco user 07/14/24 11:19 e-Cigarette/Vaping Use Never Used 07/14/24 11:19 PHQ-9: PHQ-9 Score PHQ-9: Total score 14 07/14/24 13:05 Depression Screening Interpretation: Positive Depression Screening Follow-up: Existing condition and Declines treatment Thrive Assessment: Date of Thrive Assessment Date Thrive assessed 03/03/25 03/03/25 11:25 Currently or been in a relationship where the following occur: No concerns reported Results AMB Hemoglobin A1c AMB Hemoglobin A1c 5.5 % Last Edit by ARUNA Alejandro on 07/14/24 13:05 Results Reviewed Results Reviewed: Laboratory Last Values Hgb A1c (Clinic) 5.5 % (4.0-6.0) 07/14/24 11:20 Coding Level of Care Code Est Pt Level 4 (53714) Diagnoses Systolic congestive heart failure, NYHA class 3, unspecified congestive heart failure chronicity I50.20 Congestive heart failure chronicity: unspecified Congestive heart failure type: systolic Impaired glucose metabolism R73.09 Essential hypertension I10 Hypertension type: essential hypertension Pure hypercholesterolemia E78.00 Hyperlipidemia type: pure hypercholesterolemia Class 3 obesity E66.813 [place] (obstructive sleep apnea) G47.33 Subacute cough R05.2 Cough type: subacute Additional Codes MARGRET-7 Assessment Billing - MARGRET-7 Assessment Tool: MARGRET-7 Assessment 04508 ([id number]) PHQ-9 - 36849 - PHQ-9 Billing: Yes ([id number]) Assessment & Plan Assessment & Plan (1) CHF (congestive heart failure), NYHA class III: Code(s): I50.9 - Heart failure, unspecified Category: Medical Qualifiers: Congestive heart failure chronicity: unspecified Congestive heart failure type: systolic Qualified Code(s): I50.20 - Unspecified systolic (congestive) heart failure Plan: Patient reports being seen at the [facility] ER and got a preop evaluation and reported some cardiomegaly. He does report some exercise intolerance and shortness of breath when he is going up and downstairs. Most recent echocardiogram showing EF of 30 of the her 5% with severe LVH. Will try to set patient up with Cardiology for further evaluation. Will start furosemide 40 mg as he seems to have noted benefit in his breathing with the initiation of diuretic. (2) Impaired glucose metabolism: Code(s): R73.09 - Other abnormal glucose Category: Medical Plan: Today's A1c at 5.5. Has only using metformin on an as needed basis. Will hold metformin for now will continue working on lifestyle and dietary modifications . (3) HTN (hypertension): Code(s): I10 - Essential (primary) hypertension Category: Medical Qualifiers: Hypertension type: essential hypertension Qualified Code(s): I10 - Essential (primary) hypertension Plan: Patient's blood pressure elevated today in office. He has not been using lisinopril hydrochlorothiazide as of late. He will restart lisinopril hydrochlorothiazide along with his furosemide and amlodipine. (4) HLD (hyperlipidemia): Code(s): E78.5 - Hyperlipidemia, unspecified Category: Medical Qualifiers: Hyperlipidemia type: pure hypercholesterolemia Qualified Code(s): E78.00 - Pure hypercholesterolemia, unspecified Plan: Most recent lipid panel showing excellent control of his total cholesterol and LDL. Will continue his current dose of atorvastatin 20 mg. Goal LDL to be optimally below 70. (5) Class 3 obesity: Code(s): E66.813 - Obesity, class 3 Category: Medical Plan: Patient does understand his BMI is over 40 will work on being more physically active and adapting to better eating habits to reduce his weight. (6) [place] (obstructive sleep apnea): Comment: Sleep study in 2020 results were consistent with very severe obstructive sleep apnea. Patient was started on CPAP therapy, with auto Pap mode initially and then after CPAP titration he was supposed to be on CPAP of 15 cm. He did get CPAP equipment , but perhaps has not used it at all. 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 Code(s): G47.33 - Obstructive sleep apnea (adult) (pediatric) Category: Medical Plan: Patient was followed by [facility] pulmonology and was on a CPAP machine nightly basis. U He promises to get his CPAP machine back and start using it on a nightly basis to help him control his obstructive sleep apnea and thus his cardiovascular disease management (7) Cough: Code(s): R05.9 - Cough, unspecified Category: Medical Qualifiers: Cough type: subacute Qualified Code(s): R05.2 - Subacute cough Plan: Has been experiencing cough at night that he relates to a recent upper respiratory viral illness. Of note also did have signs and symptoms of Congestive heart failure with cardiomegaly and pulmonary venous congestion on chest x-ray. Echocardiogram showing a mildly low EF. Orders: Orders Complete Blood Count no Diff 07/14/24 I50.20 - Unspecified systolic (congestive) heart failure NT-proBNP 07/14/24 I50.20 - Unspecified systolic (congestive) heart failure AMB Hemoglobin A1c 07/14/24 Z13.1 - Encounter for screening for diabetes mellitus Comprehensive [facility]. Panel Fast 07/14/24 I50.20 - Unspecified systolic (congestive) heart failure Referrals Cardiology Referral I50.20 - Unspecified systolic (congestive) heart failure Medications: New benzonatate 200 mg PO BEDTIME 10 days 10 caps 0RF R05.2 - Subacute cough, R05.9 - Cough, unspecified furosemide 40 mg PO DAILY 30 days 30 tabs 1RF I50.20 - Unspecified systolic (congestive) heart failure Refilled amlodipine 10 mg PO DAILY 90 days 90 tabs 1RF I10 - Essential (primary) hypertension aspirin 81 mg PO DAILY 90 days 90 tabs 1RF I10 - Essential (primary) hypertension fluticasone propion-salmeterol 115-21 mcg/actuation (Advair HFA) 2 puffs inhalation BID 30 days 12 grams 3RF J45.20 - Mild intermittent asthma, uncomplicated losartan-hydrochlorothiazide 100-25 mg 1 tab PO DAILY 90 days 90 tabs 1RF I10 - Essential (primary) hypertension ibuprofen 600 mg PO Q6H PRN 14 tabs 0RF pain atorvastatin 20 mg PO DAILY 90 tabs 1RF E78.00 - Pure hypercholesterolemia, unspecified metformin 500 mg PO DAILY 90 days 90 tabs 2RF R73.09 - Other abnormal glucose loratadine 10 mg PO DAILY 90 days 90 tabs 1RF J45.20 - Mild intermittent asthma, uncomplicated Discontinued furosemide (Lasix) Discontinued Reason: Doctor's Order 20 mg PO DAILY 90 days 90 tabs 1RF I50.20 - Unspecified systolic (congestive) heart failure Patient Instructions: Goal: Blood pressure to remain below 140/90, LDL to be below 70 Barriers: Adherence to physical activity and healthy eating habits
--- OUTSIDE RECORDS SUMMARY | 2024-07-14 12:55 | XMS_ITS | Continuity of Care Document ---
Author Organization [facility] Address [address] [place] [address]- Care Team Providers Care Molding Manager Name Role Phone Husam Jeter Primary Care Physician Encounter [facility] Date(s): 06/22/24 - 06/22/[address] [address]- Encounter Diagnosis Influenza A(Final) - 06/22/24 Discharge Disposition: A-D/C Home Attending Physician: Jani Uriostegui MD Admitting Physician: Jani Uriostegui MD Referring Physician: Not on Staff, Referring MD Encounter Type: Disch ES Allergies, Adverse Reactions, Alerts No Known Medication Allergies Problem List Condition Confirmation Course Effective Dates Status Health St atus Informant Severe obesity Confirmed Active Results Orders for Microbiology Reports Name Date Group A Strep Screen and Culture 06/22/24 Microbiology Reports TEST:Group A Strep Screen and Culture STATUS:Auth (Verified) BODY SITE: SOURCE:THROAT COLLECTED DATE/TIME:06/22/24 8:02 AM Group A Strep Screen and Culture SPECIMEN DESCRIPTION : THROAT SWAB SPECIAL REQUESTS : NONE DIRECT EXAM : RAPID GROUP A ANTIGEN RESULT IS NEGATIVE, CULTURE SENT TO REFERENCE LAB CULTURE : RAPID GROUP A ANTIGEN RESULT IS NEGATIVE, CULTURE SENT TO REFERENCE LAB REPORT STATUS : FINAL 06/22/2024 Radiology Reports * Exam Date Time Procedure Performing Provider Status 06/22/24 8:33 AM Chest 2 Views Frontal and Lat Richard Last; Auth (Verified) Notes: (Chest 2 Views Frontal and Lat) Reason For Exam: Shortness of Breath, Fever;Other: RESULT: Chest 2 Views Frontal and Lat Chest 2 Views Frontal and Lat Hx of Present Illness: cold symptoms with fever and sob, has been going on for 48 hrs; Reason: Other:; Shortness of Breath, Fever; Clinical Question(s): Pneumonia COMPARISON: 03/17/2024 FINDINGS: LINES AND TUBES: None. LUNGS AND PLEURA: Clear lungs. Normal pulmonary vascularity. No pleural effusion. No pneumothorax. HEART, MEDIASTINUM AND BJ: Mild prominence of the cardiac silhouette, unchanged. Normal mediastinal and hilar contour. BONES AND SOFT TISSUES: No acute abnormality. IMPRESSION: No acute abnormality. WSN: [id number] Ordering Physician: Jani Uriostegui Dictated By: Sebastian Nichols MD Dictated Date/Time: 06/22/24 8:37 am Reviewed By: Sebastian Nichols MD Signed By: Sebastian Nichols MD Signed Date/Time: 06/22/24 8:37 am Transcribed By: CLAYOTN Transcribed Date/Time: 06/22/24 8:35 am Vital Signs Most recent to oldest [Reference Range]: 1 2 Height 173 cm (06/22/24 7:43 AM) Weight 137 kg (06/22/24 7:43 AM) Oxygen Saturation [94-100 %] 96 % (06/22/24 7:43 AM) 94 % (06/22/24 7:40 AM) Pulse Rate [55-90 bpm] 102 bpm *H* (06/22/24 7:43 AM) 114 bpm *H* (06/22/24 7:40 AM) Body Mass Index [18.5-24.99 kg/m2] 45.78 kg/m2 *>HHI* (06/22/24 7:43 AM) Blood Pressure [90-138/55-84 mm Hg] 158/ 94mm Hg *H* (06/22/24 7:43 AM) Respiratory Rate [16-30 br/min] 18 br/mi n (06/22/24 7:43 AM) Temperature [96.8-100.4 DegF] 98.8 DegF (06/22/24 7:43 AM) Mode of Delivery (Oxygen) Room air (06/22/24 7:43 AM) Room air (06/22/24 7:40 AM) Blood pressure sites Arm, left (06/22/24 7:43 AM) Temperature Route Oral (06/22/24 7:43 AM) Dry Weight 137 kg (06/22/24 7:43 AM) Weight Obtained Via Patient/family state d (06/22/24 7:43 AM) Dry Weight Obtained Via Patient/family s tated (06/22/24 7:43 AM) EKG study * Event Display: ECG 12-Lead Authored Date: Please click on pdf link to open report * Event Display: ECG 12-Lead Authored Date: Ventricular Rate: 96 BPM Atrial Rate: 96 BPM P-R Interval: 170 ms QRS Duration: 88 ms Q-T Interval: 378 ms QTC Calculation(Bazett): 477 ms P Center: 46 degrees R Center: -34 degrees T Center: 65 degrees Normal sinus rhythm Possible Left atrial enlargement Left axis deviation Nonspecific T wave abnormality Abnormal ECG When compared with ECG of 17-Mar-2024 17:57, No significant change was found Confirmed by KENISHA MARTIN MD ([id number]) on 06/22/2024 4:56:03 PM Saline: KENISHA MARTIN MD Note * Jani Uriostegui MD: PERFORM Event Display: Patient Education Leaflets Authored Date: Influenza (Adult) ?? [id number] Influenza (Adult) Updated for the flu season Influenza is also called the flu. It's a viral illness that affects the air passages of your nose, sinuses, throat, and lungs. It's more serious than the common cold. The flu can easily be passed from one person to another. It is very contagious. It may be spread through the air by coughing and sneezing. It can also be spread by touching the sick person and then touching your own eyes, nose, or mouth. The flu starts 1 to 4 days after you are exposed to the flu virus. Symptoms usually last for about 3 days, but it can take 1 to 2 weeks to fully recover. You usually don???t need to take antibiotics unless you are at high risk for or have a complication from a bacterial infection. This might be an ear or sinus infection or pneumonia. Flu symptoms may be mild or severe. They can include extreme tiredness (wanting to stay in bed all day), chills, fevers, muscle aches, soreness with eye movement, headache, and a dry, hacking cough. Antiviral medicine for the flu is available by prescription. If you start taking it within 48 hours, it may help reduce how long your symptoms last and how severe they are. Your provider may do a test to find out if you have influenza and which strain you have. Home care Follow these guidelines when caring for yourself at home: ??? Stay away from cigarette smoke, whether it's yours or other people???s. ??? Acetaminophen or ibuprofen will help ease your fever, muscle aches, and headache. Don???t give aspirin to anyone younger than 18 who has the flu. This can cause a serious condition called Maura syndrome. ??? Nausea, loose stools, and loss of appetite are common with the flu. Eat light meals. Drink 6 to 8 glasses of liquids every day. Good choices are water, sport drinks, soft drinks without caffeine, juices, tea, and soup. Extra fluids will also help loosen secretions in your nose and lungs. ??? Fsuu-xhk-rnnsflw cold medicines will not make the flu go awayfaster. But the medicines may help with coughing, sore throat, and congestion in your nose and sinuses. Don???t use a decongestant if you have high blood pressure. ??? Stay home until your fever has been gone for at least 24 hours without using medicine to reduce fever. ??? Drink enough fluids so that you do not become dehydrated. ??? Take warm, steamy showers to help soothe your cough. ??? If you have a sore throat, gargling with warm salty water, sucking on an ice cube, drinking hot water with honey and freshly squeezed lemon juice can help. ?? Follow-up care Follow up with your healthcare provider, or as advised, if you're not getting better over the next week. If you're age 50 or older, talk with your provider about getting a pneumococcal vaccine. You shouldalso get vaccinated against pneumococcal pneumoniae at other ages if you have a weak immune system,chronic asthma, COPD (chronic obstructive pulmonary disorder), or certain other conditions. With very few exceptions, all adults should get a flu vaccine every fall. January and February are generally good times to get vaccinated. Ask your provider about this. ?? When to get medical advice Call your healthcare provider right away if you have the flu and any of these occur: ??? Cough with lots of colored mucus (sputum) or blood in your mucus ??? Chest pain, shortness of breath, wheezing, or trouble breathing ??? Severe headache, or face, neck, or ear pain ??? New rash??with fever ??? Fever of 100.4??F (38??C)??or higher, or as??advised by your provider ??? Confusion, behavior change, or seizure ??? Severe weakness or dizziness ??? You get a new??fever or cough aftergetting better for a few days Also call your provider if you have flu symptoms and have a weakened immune system or are taking medicines that can weaken your immune system. These include steroids and certain anti-inflammatory medicines. ?? Last Reviewed Date: 2023 ?? [employer]. All rights reserved. This information is not intended as a substitute for professional medical care. Always follow your healthcare professional's instructions. ?? Patient Care team information Care Team Personnel Name: Husam Jeter Position: Reference Physician Member Role: PCP Address: [address] [place] [address]- Telecom: Care Team Related Persons Name: ELVIN GAYTAN Insurance Providers Guarantor name: [employer] Health Plan Information #: 1 Payer: [employer] Member Number: [id number] Policy Number: [employer] Group Number: [employer] Health Plan Information #: 2 Payer: [employer] Member Number: [id number] Policy Number: [employer] Group Number: [id number]
--- OUTSIDE RECORDS SUMMARY | 2024-07-14 12:55 | XMS_ITS | Clinical Summary ---
Author Organization [facility] Facility Address [address] [place] [id number] Care Team Providers Care Mail Distributor Name Role Phone Husam Beatty Primary Care Provider [phone] Social History Tobacco Use Types Packs/Day Years [...] patient's age to complete this topic Insurance [facility] MEDICAID * Guarantor: Darwin Carballo Account Type Relation to Patient Date of Phone Billing Address Personal/Family Self [address] [place] [address] [facility] MEDICAID Care Teams Mail Distributor Relationship Specialty Start Date End Date Husam Beatty PA [address] [place] [address], [address] [place], [place] [id number] PCP - General Physician Certified Paralegal 08/30/22
--- OUTSIDE RECORDS SUMMARY | 2024-07-14 12:55 | XMS_ITS | Encounter Summary ---
Author Organization [employer] Address [address] [place] [address] 7t [place] [address] Care Team Providers Care Metal Hanging Supervisor Name Role Phone Unavailable Primary Care Provider Unavailabl e Encounter Details Date Type Department Care Team (Latest Contact Info) Description 09/23/2018 Abstract [facility] CONVERSIONS Dental, Provider, DDS Social History [...]
--- OUTSIDE RECORDS SUMMARY | 2024-07-14 12:55 | XMS_ITS | Clinical Summary ---
Demographics Address [address] [facility] [address] [place] [address] Home Phone Work Phone Email Address Preferred Language en Marital Status Unknown Gnosticist Affiliation Unknown Race Other Race Ethnic Group or Author Organization [employer] Address [address] [facility] 7t [place] [address] Care Team Providers Care Director Of Analytics Name Role Phone Unavailable Primary Care Provider [...]
== END 2024-07-14 11:54 | disposition home or self-care (01) ==
PROVIDERS: PCP Physician Assistant; Visit Provider Physician Assistant
DX: Z13.1 Encounter for screening for diabetes mellitus (principal)

== ENCOUNTER → 2024-07-14 10:56 | Outpatient (BNVA) | payer OTHER, SELFPAY | PROVIDERS: PCP Physician Assistant; Visit Provider Physician Assistant | DX: I11.0 Hypertensive heart disease with heart failure (principal); I50.20 Unspecified systolic (congestive) heart failure; R73.09 Other abnormal glucose; E78.00 Pure hypercholesterolemia, unspecified; E66.813 Obesity, class 3; G47.33 Obstructive sleep apnea (adult) (pediatric); R05.2 Subacute cough | CPT/HCPCS: 83036; 96127; 99212 ==

== ENCOUNTER 2024-07-16 10:03 | Outpatient (AMB) | payer OTHER, SELFPAY ==
--- NOTE | 2024-07-16 10:18 | A.OFFVIS_ITS ---
VS Expanded 07/16/24 10:20 Height 5 ft 8 in Weight 298 lb 8.094 oz BMI 45.4 Intake Visit Reasons: Morbid (severe) obesity due to excess calories Allergies No Known Allergies [No Known Allergies*] Allergy (Verified 07/14/24 11:29) Nutrition Presentation Details: Pt presents for MNT for obesity Pt reports working on reducing on fat intake , motivated to improve diet and weight loss food frquency fruits: 0-1/d vex/k dairy: 3+ starches >30 servings fish : 0-1/wk physical activity: sedentary for now etoh/smoking denies BS Monitoring Most Recent Diabetes Results: Microalb/Creat Ratio 70.4 ug/mg cr (<30) H 05/20/24 Cholesterol 103 mg/dL (<200) 05/20/24 HDL Cholesterol 31 mg/dL (>40) L 05/20/24 Triglycerides 78 mg/dL (<150) 05/20/24 Creatinine 0.85 mg/dL (0.5-1.4) 05/20/24 Blood Urea Nitrogen 13 mg/dL (9-16) 05/20/24 Sodium 142 mmol/L (135-145) 05/20/24 Potassium 3.7 mmol/L (3.3-5.1) 05/20/24 Chloride 106 mmol/L (96-108) 05/20/24 Carbon Dioxide 29 mmol/L (22-29) 05/20/24 Calcium 9.3 mg/dL (8.4-10.2) 05/20/24 AST 23 U/L (5-37) 05/20/24 ALT 26 U/L (0-40) 05/20/24 Total Protein 7.4 g/dL (6.5-8.0) 05/20/24 Albumin 4.3 g/dL (3.5-5.0) 05/20/24 LIP-Gwshifd-Sx.Jeor Equation Height: 5 ft 8 in Weight: 298 lb Resting Metabolic Rate: 2183.93 Calculated Activity Level: Sedentary Calories Needed to Maintain Weight: 2620.72 Diagnosis Nutrition problem #1: overweight/obesity As related to (etiology) #1: diagnosis As evidenced by (sign/symptom) #1: high BMI (45.4 (08/05)) [facility] Medical History H. 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 Cognitive needs: No Hearing needs: No Vision needs: No Assessment & Plan Assessment & Plan (1) Class 3 obesity: Code(s): E66.813 - Obesity, class 3 Category: Medical Plan: Wt: 135 Kg ( 08/05 ) Est kcal needs as per MSJ: 2600 (40% carb, 30% protein/fat) Est fluid needs as per 25-30 ml/d: 4100 Est prot per day as per 1 g/kg bw: 135 Recommend fiber intake : 8-10 g per day and gradually increase to 25-28 g per day for women and 35-38 g for men or as tolerated Recommend sodium intake per day : less than 2300 mg Educated patient on: ( R = reviewed V = verbalizes understanding N/R = needs review N/A = not applicable * Food sources of carbohydrate, adequate serving sizes and its role in various health conditions: R V N/R * Differences between complex carbohydrates a simple carbohydrates, role of fiber in diet: R * Lean protein sources of foods: R * Differences between types of fats and role in diet (mono on saturated fat fatty acids, saturated fatty acids, trans fats): R * Food sources of sodium in salt and healthy modifications for heart health in kidney health: R V R/V * Vitamins and minerals: R V N/R * Healthy plate method concept: R V N/R * Physical activity: Benefits a precaution: R Patient Instructions: have yogurt with nuts as bedtime snack Continue working on reducing on fried foods items and choose fiber rich foods , see meal ideas as reference Coding Level of Care Code Nutr Indiv Intake (60054) Diagnoses Class 3 obesity E66.813 Time Spent (min) 30
[2024-07-16 10:20] VITALS: BMI 45.4
--- OUTSIDE RECORDS SUMMARY | 2024-07-16 11:49 | XMS_ITS | Clinical Summary ---
Demographics Address [address] [facility] [address] [place] [address] Home Phone Work Phone Email Address Preferred Language en Marital Status Unknown Catholic Affiliation Unknown Race Other Race Ethnic Group or Author Organization [employer] Address [address] [facility] [address]t [place] [address] Care Team Providers Care Rubber Ball Finisher Name Role Phone Unavailable Primary Care Provider [...]
--- OUTSIDE RECORDS SUMMARY | 2024-07-16 11:49 | XMS_ITS | Clinical Summary ---
Author Organization [facility] Address [address] [place] [id number] Care Team Providers Care Mobile Homes Repairer Name Role Phone Husam Beatty Primary Care Provider [phone] Social History Tobacco Use Types Packs/Day Years [...] patient's age to complete this topic Insurance [facility] MEDICAID * Guarantor: Darwin Carballo Account Type Relation to Patient Date of Phone Billing Address Personal/Family Self [address] [place] [address] [facility] MEDICAID Care Teams Mobile Homes Repairer Relationship Specialty Start Date End Date Husam Beatty PA [address] [place] [address], [address] [place], [place] [id number] PCP - General Physician Instructional Technologist 08/30/22
--- OUTSIDE RECORDS SUMMARY | 2024-07-16 11:49 | XMS_ITS | Encounter Summary ---
Author Organization [employer] Address [address] [place] [address] 7t [place] [address] Care Team Providers Care Container Repairer Name Role Phone Unavailable Primary Care Provider Unavailabl e Encounter Details Date Type Department Care Team (Latest Contact Info) Description 09/23/2018 Abstract [facility] CONVERSION[facility] Dental, Provider, DDS Social History [...]
[2024-07-22 14:55] VITALS: BMI 45.3
== END 2024-07-16 10:44 | disposition home or self-care (01) ==
PROVIDERS: Visit Provider Dietitian, Registered
DX: E66.813 Obesity, class 3 (principal)

== ENCOUNTER → 2024-07-16 10:03 | Outpatient (BNVA) | payer OTHER, SELFPAY | PROVIDERS: Visit Provider Dietitian, Registered | DX: E66.813 Obesity, class 3 (principal); Z71.3 Dietary counseling and surveillance; Z68.41 Body mass index [BMI] 40.0-44.9, adult | CPT/HCPCS: 97802 ==

== ENCOUNTER 2024-07-24 10:02 | Outpatient (AMB) | payer OTHER, SELFPAY ==
[2024-07-24 10:35] VITALS: BP 130/80; PULSE 77; O2SAT 96; BMI 46.6
--- NOTE | 2024-07-24 10:35 | A.OFFVIS_ITS ---
Vital Signs 07/24/24 10:35 Height 5 ft 8 in Weight 306 lb 7.08 oz BMI 46.6 BP 130/80 Blood Pressure Location Lt brachial Position Sitting Pulse 77 Pulse Source Pulse Oximeter Pulse Oximetry (%) 96 Oxygen Delivery Method Room Air Intake Visit Reasons: Asthma/Follow Up Mohna Intake Note: pt is here of follow up and he had some issues with using cpap due to uri with cough, prohibiting him from every night usage, only slight congestion going on, and will be back on cpap Chicken Cutter Required: No Allergies No Known Allergies [No Known Allergies*] Allergy (Verified 07/24/24 11:02) Medication List - Last Reconciled 07/24/24 by Julianna Villanueva MD albuterol sulfate 90 mcg/actuation 2 puffs inhalation Q4-6H PRN 30 days amlodipine 10 mg PO DAILY 90 days aspirin 81 mg PO DAILY 90 days atorvastatin 20 mg PO DAILY benzonatate 200 mg PO BEDTIME PRN blood pressure kit-extra large As directed CPAP (CPAP Machine/Device) As directed doxazosin 2 mg PO DAILY 90 days fluticasone propion-salmeterol 115-21 mcg/actuation (Advair HFA) 2 puffs inhalation BID PRN furosemide 40 mg PO DAILY ibuprofen 600 mg PO Q6H PRN loratadine 10 mg PO DAILY PRN losartan-hydrochlorothiazide 100-25 mg 1 tab PO DAILY 90 days metformin 500 mg PO DAILY PRN omeprazole 40 mg PO DAILY 90 days Do you need a note to return to daycare/school/sports/work: No HPI HPI Asthma/Follow Up Mohan: Details: THIS 53 YEARS OLD GENTLEMAN IS A CASE OF MORBID OBESITY, OBSTRUCTIVE SLEEP APNEA, AND MILD INTERMITTENT BRONCHIAL ASTHMA. HE COMES AFTER 6 MONTHS. FOR HIS ROUTINE FOLLOW-UP AGAIN GIVING LOT OF EXCUSES FOR NOT USING THE CPAP REGULARLY. THIS TIME HE IS SAYING THAT HE HAS HAD SOME CHEST CONGESTION AND COUGH FOR THE LAST FEW WEEKS AND HAS NOT BEEN ABLE TO USE THE CPAP. HOWEVER HE DOES SLEEP OKAY. FAR MILD BRONCHIAL ASTHMA IS CONCERNED HE JUST NEEDS TO USE ALBUTEROL EVERY FEW WEEKS. DENIES ANY COUGH. WEIGHT CERVANTES HE HAS ACTUALLY PUT ON ABOUT 8 LB OF WEIGHT IN THE LAST 6 MONTHS. HE SAW DIETITIAN ONLY RECENTLY, AND IS TRYING TO STICK TO HIS DIET , HE WAS ADVISED TO CUT DOWN THE PORTIONS. AND INCREASE CONTENT OF WEDGE TABLES AND FRUITS. HE HAS BEEN OUT OF WORK DURING WINTER AND NOW LOOKING FORWARD TO START DOING OUTDOORS WORK IN A FEW MORE WEEKS, HE WORKS IN [employer] [facility] Medical History H. pylori infection [place] (obstructive sleep apnea) Tinea Surgical History No pertinent past surgical history Family History Mother Brain tumor Brother Substance abuse Social History Housing: Apartment Alcohol intake: current Alcohol intake frequency: holidays/special occasions only Patient Tobacco Use Status: Former Tobacco user e-Cigarette/Vaping Use: Never Used Second Hand Smoke Exposure: Yes service: No Current occupational status: employed Current occupation: [employer] Cognitive needs: No Hearing needs: No Vision needs: No Review of Systems Const All systems reviewed & are unremarkable except as noted in HPI and below Eyes Reports no additional complaints ENT Reports no additional complaints Card Denies chest pain, Denies irregular heart rhythm, Denies leg edema and Denies lightheadedness Resp Reports as per HPI GI Reports no additional complaints and Reports heartburn (Treated with omeprazole p.r.n.) Reports nocturia Musc Reports no additional complaints Skin/Breast Reports system reviewed and no additional complaints, except as documented Neuro Reports no additional complaints Psych Reports no additional complaints Physical Exam Vital Signs: Last Vital Signs Pulse 77 07/24/24 10:35 BP 130/80 07/24/24 10:35 Pulse Ox 96 07/24/24 10:35 Oxygen Delivery Method Room Air 07/24/24 10:35 BMI result Body Mass Index 46.6 Const General: comfortable, no acute distress, alert and awake; No healthy appearing (Except for being overweight) Orientation/consciousness: patient oriented x3 HEENT Head: Yes normal to inspection General nose exam: No nasal polyps present and No nasal discharge present Face and sinus: Yes sinuses nontender Mouth: oropharynx abnormals (Narrow and crowded, Mallampati class 3) Throat: Yes posterior oropharynx normal Eyes General: appearance normal, both eyes and all related structures Neck Other: Neck circumference 18 in Neck: Yes normal visual inspection, Yes no lymphadenopathy, Yes trachea midline and Yes no JVD Thyroid: Thyroid normal Chest Chest palpation & inspection: normal inspection of the chest, normal palpation of entire chest wall and no tenderness Resp Effort & Inspection: normal respiratory effort Auscultation: clear to auscultation bilaterally, no crackles and no wheezes Cardio Palpation: normal PMI Rate: regular rate Rhythm: regular rhythm Heart sounds: no gallops and no murmurs Peripheral pulses: Peripheral pulses 2+ throughout GI Palpation (GI): Soft to palpation, nontender, No hepatosplenomegaly present and no masses Auscultation: normal bowel sounds Back/Spine/Pelvis Thoracic/Lumbar Spine: thoracic and lumbar spine normal to inspection Skin General skin exam: no rashes or lesions noted Neuro General: patient oriented x3 and no focal motor deficits Cranial nerves: Yes CN's II-XII intact bilaterally Extrem General: Yes normal to inspection, Yes no clubbing, cyanosis or edema and Yes no calf tenderness Psych Appearance: grossly normal and well kempt Speech and movement: Normal speech and movement present Results Reviewed Results Reviewed: COMPLIANCE REPORT FOR THE LAST 30 NIGHTS REVIEWED AND HE USED ONLY FOR 3 NIGHTS IN THE WHOLE MONTH. THERE IS SIGNIFICANT AMOUNT OF AIR LEAK AND RESIDUAL AHI 16.5 Assessment & Plan Assessment & Plan (1) Morbid obesity with BMI of 40.0-44.9, adult: Comment: He remains morbidly obese current BMI 46.6 He has gained about 8 lb of weight again. Justifies it because he is not working during winter. Code(s): E66.01 - Morbid (severe) obesity due to excess calories; Z68.41 - Body mass index [BMI] 40.0-44.9, adult Category: Medical Plan: Talked to him about the weight in great detail. It is essential that he has to follow the advice by the dietitian. It is essential that he has to start walking or doing some exercise on a daily basis. He has to monitor his weight and try to lose about 4 or 5 lb every month, (2) [place] (obstructive sleep apnea): Comment: Sleep study in 2020 results were consistent with very severe obstructive sleep apnea. Patient was started on CPAP therapy, with auto Pap mode initially and then after CPAP titration he was supposed to be on CPAP of 15 cm. He did get CPAP equipment , and it is set at auto Pap mode. Is usage remains very poor, he has used only for 3 nights in the last month. Code(s): G47.33 - Obstructive sleep apnea (adult) (pediatric) Category: Medical Plan: Talked about the CPAP usage. It is essential for him to use CPAP every night, at least for 4-5 hours per night. He may also use CPAP during the daytime if he has feeling of sleepiness. (3) Asthma: Comment: CLINICALLY HE SEEMS TO HAVE A VERY MILD INTERMITTENT BRONCHIAL ASTHMA, . IS RELATIVELY STABLE AT THIS TIME Code(s): J45.909 - Unspecified asthma, uncomplicated Category: Medical Qualifiers: Asthma severity: mild Asthma persistence: intermittent Asthma complication type: uncomplicated Qualified Code(s): J45.20 - Mild intermittent asthma, uncomplicated Plan: USE ALBUTEROL HFA 2 PUFFS Q 6 HOURS ONLY P.R.N. Medications: Changed From loratadine 10 mg PO DAILY 90 tabs 1RF 90 days J45.20 - Mild intermittent asthma, uncomplicated To loratadine 10 mg PO DAILY PRN J45.20 - Mild intermittent asthma, uncomplicated From fluticasone propion-salmeterol 115-21 mcg/actuation (Advair HFA) 2 puffs inhalation BID 12 grams 3RF 30 days J45.20 - Mild intermittent asthma, uncomplicated To fluticasone propion-salmeterol 115-21 mcg/actuation (Advair HFA) 2 puffs inhalation BID PRN J45.20 - Mild intermittent asthma, uncomplicated From benzonatate 200 mg PO BEDTIME 10 caps 0RF 10 days R05.2 - Subacute cough, R05.9 - Cough, unspecified To benzonatate 200 mg PO BEDTIME PRN R05.2 - Subacute cough, R05.9 - Cough, unspecified From metformin 500 mg PO DAILY 90 tabs 2RF 90 days R73.09 - Other abnormal glucose To metformin 500 mg PO DAILY PRN R73.09 - Other abnormal glucose Coding Level of Care Code Est Pt Level 3 (17769) Diagnoses Morbid obesity with BMI of 40.0-44.9, adult E66.01; Z68.41 [place] (obstructive sleep apnea) G47.33 Mild intermittent asthma without complication J45.20 Asthma severity: mild Asthma persistence: intermittent Asthma complication type: uncomplicated
--- OUTSIDE RECORDS SUMMARY | 2024-07-24 12:24 | XMS_ITS | Clinical Summary ---
Demographics Address [address] [facility] [address] [place] [address] Home Phone Work Phone Email Address Preferred Language en Marital Status Unknown Lutheran Affiliation Unknown Race Other Race Ethnic Group or Author Organization [employer] Address [address] [facility] [address]t [place] [address] Care Team Providers Care Group Rooms Coordinator Name Role Phone Unavailable Primary Care Provider [...]
--- OUTSIDE RECORDS SUMMARY | 2024-07-24 12:24 | XMS_ITS | Encounter Summary ---
Author Organization [employer] Address [address] [place] [address] 7t [place] [address] Care Team Providers Care Frontload Driver Name Role Phone Unavailable Primary Care Provider Unavailabl e Encounter Details Date Type Department Care Team (Latest Contact Info) Description 09/23/2018 Abstract [facility] CONVERSIONS Dental, Provider, DDS Social History Tobacco [...]
--- OUTSIDE RECORDS SUMMARY | 2024-07-24 12:24 | XMS_ITS | Clinical Summary ---
Author Organization [facility] Facility Address [address] [place] [address] Care Team Providers Care Paramedic Name Role Phone Husam Beatty Primary Care Provider [phone] Social History Tobacco Use Types Packs/Day Years [...] patient's age to complete this topic Insurance [facility] MEDICAID * Guarantor: Darwin Carballo Account Type Relation to Patient Date of Phone Billing Address Personal/Family Self [address] [place] [address] [facility] MEDICAID Care Teams Paramedic Relationship Specialty Start Date End Date Husam Beatty PA [address] [place] [address], [address] [place], [place] [id number] PCP - General Physician Overhead Crane Operator 08/30/22
== END 2024-07-24 11:03 | disposition home or self-care (01) ==
LOC: HO.HPS 10:03
PROVIDERS: PCP Physician Assistant; Visit Provider Internal Medicine
DX: E66.01 Morbid (severe) obesity due to excess calories (principal); Z68.41 Body mass index [BMI] 40.0-44.9, adult; G47.33 Obstructive sleep apnea (adult) (pediatric); J45.20 Mild intermittent asthma, uncomplicated
CPT/HCPCS: 99213

== ENCOUNTER → 2024-07-24 10:02 | Outpatient (BNVA) | payer OTHER, SELFPAY | PROVIDERS: PCP Physician Assistant; Visit Provider Internal Medicine | DX: G47.33 Obstructive sleep apnea (adult) (pediatric) (principal); J45.20 Mild intermittent asthma, uncomplicated; E66.01 Morbid (severe) obesity due to excess calories; R05.2 Subacute cough; R73.09 Other abnormal glucose; Z68.42 Body mass index [BMI] 45.0-49.9, adult; Z99.89 Dependence on other enabling machines and devices | CPT/HCPCS: 99212 ==

== ENCOUNTER 2024-07-28 15:45 | Outpatient (AMB) | payer OTHER, SELFPAY ==
--- NOTE | 2024-07-28 15:51 | MHC.OFFVIS ---
Intake Visit Reasons: low testosterone Intake Note: Patient presents to office today for low testosterone Urology Medications- None Allergies to Antibiotic- No Known Allergies Blood Thinner- Aspirin Allergies No Known Allergies [No Known Allergies*] Allergy (Verified 07/28/24 15:53) Medication List - Last Reconciled 07/28/24 by Cm Jerome MD albuterol sulfate 90 mcg/actuation 2 puffs inhalation Q4-6H PRN 30 days amlodipine 10 mg PO DAILY 90 days aspirin 81 mg PO DAILY 90 days atorvastatin 20 mg PO DAILY benzonatate 200 mg PO BEDTIME PRN blood pressure kit-extra large As directed CPAP (CPAP Machine/Device) As directed doxazosin 2 mg PO DAILY 90 days fluticasone propion-salmeterol 115-21 mcg/actuation (Advair HFA) 2 puffs inhalation BID PRN furosemide 40 mg PO DAILY ibuprofen 600 mg PO Q6H PRN loratadine 10 mg PO DAILY PRN losartan-hydrochlorothiazide 100-25 mg 1 tab PO DAILY 90 days metformin 500 mg PO DAILY PRN omeprazole 40 mg PO DAILY 90 days HPI Comments Details: 07/28/24--Leticia is a 53-year-old male presenting with low testosterone levels. Identified on May 20, 2022, with a serum testosterone level of 238 ng/dL, he reports significant fatigue, lack of motivation, and weight gain linked to low testosterone. The patient has a history of complex renal cysts, managed asthma, prediabetes, and pulmonary congestion. He has been treated with Furosemide since April 2023, which has ameliorated previous shortness of breath. Sexual activities are less frequent due to exertional dyspnea, though the patient reports intact erections. Results - Labs: Testosterone level at 238 ng/dL, measured May 20, 2022. - Labs: Prostate-Specific Antigen (PSA) at 1.01, measured May 20, 2022. 01/10/2023? Darwin was last seen by me on 11/01/2022 for complex renal cyst. CT of the abdomen with/without IV contrast was ordered. He has past medical history of hypertension, on metformin for pre-diabetes, Obesity. He denies any other new concerns or complaints at this time. I reviewed the CTAP-w/wo IV contrast results from 01/01/2023 revealed bilateral renal cysts, largest on the left measuring 7.1 cm with no suspicious CT features. Review of charts: Last visit: 11/01/2022? Renal US results reviewed?09/29/22-- 7.6 cm incompletely characterized septated cyst in the lower left kidney. PSA--01/06/22--0.69. [facility] Medical History H. 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[employer] Cognitive needs: No Hearing needs: No Vision needs: No Review of Systems Const All systems reviewed & are unremarkable except as noted in HPI and below Reports no additional complaints Eyes Reports no additional complaints ENT Reports no additional complaints Card Reports no additional complaints Resp Reports no additional complaints GI Reports no additional complaints Reports as per HPI Musc Reports no additional complaints Skin/Breast Reports system reviewed and no additional complaints, except as documented Neuro Reports no additional complaints Psych Reports no additional complaints Endo Reports no additional complaints Albert/Lymph Reports no additional complaints Aller/Immun Reports no additional complaints Results AMB Urinalysis, Automated UA Leukoctes 0 Zeny/uL Last Edit by Ning Cool on 07/28/24 16:06 UA Nitrite Negative Last Edit by Ning Cool on 07/28/24 16:06 UA Urobilinogen 0.2 mg/dL Last Edit by Ning Cool on 07/28/24 16:06 UA Protein 100 mg/dL Last Edit by Ning Cool on 07/28/24 16:06 UA pH 6.0 Last Edit by Ning Cool on 07/28/24 16:06 UA Blood 0 Marvin/uL Last Edit by Ning Cool on 07/28/24 16:06 UA Specific Hustle 1.020 Last Edit by Ning Cool on 07/28/24 16:06 UA Ketone Positive Last Edit by Ning Cool on 07/28/24 16:06 UA Bilirubin 1 mg/dL Last Edit by Ning Cool on 07/28/24 16:06 UA Glucose 0 mg/dL Last Edit by Ning Cool on 07/28/24 16:06 Results Reviewed Results Reviewed: Laboratory Last Values Urine pH (Auto) 6.0 07/28/24 14:10 Specific Hustle (Auto) 1.020 07/28/24 14:10 Urine Protein (Auto) 100 mg/dL 07/28/24 14:10 Glucose (UA)(Auto) 0 mg/dL 07/28/24 14:10 Urine Ketones (Auto) Positive 07/28/24 14:10 Urine Blood (Auto) 0 Marvin/uL 07/28/24 14:10 Urine Nitrite (Auto) Negative 07/28/24 14:10 Urine Bilirubin (Auto) 1 mg/dL 07/28/24 14:10 Urine Urobilinogen (Auto) 0.2 mg/dL 07/28/24 14:10 Leukocyte Esterase (Auto) 0 Zeny/uL 07/28/24 14:10 Assessment & Plan Assessment & Plan (1) Low testosterone in male: Code(s): R79.89 - Other specified abnormal findings of blood chemistry Category: Medical (2) Fatigue: Code(s): R53.83 - Other fatigue Category: Medical (3) Renal cyst: Code(s): N28.1 - Cyst of kidney, acquired Category: Medical Plan - Schedule and complete recommended blood tests in the morning while fasting. - Keep track of weight and engage in a supervised weight loss regimen. - Incorporate regular physical activity to improve overall health and reduce obesity-related symptoms. - Plan for a follow-up appointment in seven weeks to discuss lab results and further management strategies. Orders: Orders AMB Urinalysis Automated Today Z13.9 - Encounter for screening, unspecified Testosterone, Free/Total Today R53.83 - Other fatigue, R79.89 - Other specified abnormal findings of blood chemistry Lutenizing Hormone Today R53.83 - Other fatigue, R79.89 - Other specified abnormal findings of blood chemistry Follicle Stimulating Hormone Today R53.83 - Other fatigue, R79.89 - Other specified abnormal findings of blood chemistry Glucose Fasting Today R53.83 - Other fatigue, R79.89 - Other specified abnormal findings of blood chemistry Hemoglobin A1c Today R53.83 - Other fatigue, R79.89 - Other specified abnormal findings of blood chemistry Prolactin Today R53.83 - Other fatigue, R79.89 - Other specified abnormal findings of blood chemistry Patient Instructions: The patient had an opportunity to ask questions regarding treatment plan. The patient expressed understanding and agreement with the above treatment plan. The patient is aware they should contact our office by phone for worsening of their current condition or the appearance of new symptoms. Compliance is encouraged with any medications and followup testing that is ordered. It is a privilege to be allowed the opportunity to participate in the urologic care of your patient. If you have any questions or concerns regarding treatment for the above conditions please do not hesitate to contact me. The office telephone contact is [phone]. This note is constructed in part using voice recognition software. While every effort has been made to ensure accuracy nursing assoc errors may have been included. Yours sincerely, Cm Jerome MD Scribe Plan - Not visible on output: Patient was informed and verbally consented to the use of an ambient scribe for clinic note documentation during this visit. Coding Level of Care Code Est Pt Level 4 (38275) Diagnoses Low testosterone in male R79.89 Fatigue R53.83 Renal cyst N28.1
--- OUTSIDE RECORDS SUMMARY | 2024-07-28 18:12 | XMS_ITS | Clinical Summary ---
Author Organization [facility] Facility Address [address] [place] [address] Care Team Providers Care Chair Mender Name Role Phone Husam Beatty Primary Care [...] patient's age to complete this topic Insurance [facility] MEDICAID * Guarantor: Darwin Carballo Account Type Relation to Patient Date of Phone Billing Address Personal/Family Self [address] [place] [address] [facility] MEDICAID Care Teams Chair Mender Relationship Specialty Start Date End Date Husam Beatty PA [address] [place] [address], [address] [place], [place] [id number] PCP - General Physician Business Support Professional 08/30/22
--- OUTSIDE RECORDS SUMMARY | 2024-07-28 18:12 | XMS_ITS | Clinical Summary ---
Demographics Address [address] [facility] [address] [place] [address] Home Phone Work Phone Email Address Preferred Language en Marital Status Unknown Mu-Ism Affiliation Unknown Race Other Race Ethnic Group or Author Organization [employer] Address [address] [facility] 7t [place] [address] Care Team Providers Care Mental Health Program Director Name Role Phone Unavailable Primary Care Provider [...]
--- OUTSIDE RECORDS SUMMARY | 2024-07-28 18:12 | XMS_ITS | Encounter Summary ---
Author Organization [employer] Address [address] [place] [address] 7t [place] [address] Care Team Providers Care Diazo Technician Name Role Phone Unavailable Primary Care Provider Unavailabl e Encounter Details Date Type Department Care Team (Latest Contact Info) Description 09/23/2018 Abstract [facility] CONVERSIONS Dental, Provider, DDS Social History [...]
== END 2024-07-28 16:30 ==
LOC: HO.HUSH 15:46
PROVIDERS: PCP Physician Assistant; Visit Provider Urology
DX: R79.89 Other specified abnormal findings of blood chemistry (principal); R53.83 Other fatigue; N28.1 Cyst of kidney, acquired; Z13.9 Encounter for screening, unspecified
CPT/HCPCS: 99214

== ENCOUNTER → 2024-07-28 15:45 | Outpatient (BNVA) | payer OTHER, SELFPAY | PROVIDERS: PCP Physician Assistant; Visit Provider Urology | DX: R79.89 Other specified abnormal findings of blood chemistry (principal); R53.83 Other fatigue; N28.1 Cyst of kidney, acquired | CPT/HCPCS: 81003; 99212 ==

== ENCOUNTER 2024-08-20 09:15 | Outpatient (AMB) | payer OTHER, SELFPAY ==
--- NOTE | 2024-08-20 09:36 | MHC.AMNUTRGE ---
VS Expanded 08/20/24 09:37 Height 5 ft 8 in Weight 293 lb 10.491 oz BMI 44.6 Intake Visit Reasons: Morbid Obesity Allergies No Known Allergies [No Known Allergies*] Allergy (Verified 07/28/24 15:53) Nutrition Presentation Details: Pt presents for MNT for morbid obesity Hx of CHF, T2DM Pt reports starting to engage in physical activity for the past 2-3 weeks (2-3 times a week) getting into a routine food frequency dairy 0-1/ fruits: 0-1/d fish : 0-1/wk, seeds/nuts: 0-1/wk vegetables: 2 x/wk fried foods : 1x/wk - working on reduction Fluids: water, milk in cereals, juices diluted with water 64 oz /d BS Monitoring Most Recent Diabetes Results: No Data to Display [facility] Medical History H. 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 Cognitive needs: No Hearing needs: No Vision needs: No Assessment & Plan Assessment & Plan (1) Class 3 obesity: Code(s): E66.813 - Obesity, class 3 Category: Medical Plan: Wt: 135 Kg ( 08/05 ), 134 (09/05) Est kcal needs as per MSJ: 2600 (40% carb, 30% protein/fat) Est fluid needs as per 25-30 ml/d: 4100 Est prot per day as per 1 g/kg bw: 135 Recommend fiber intake : 8-10 g per day and gradually increase to 25-28 g per day for women and 35-38 g for men or as tolerated Recommend sodium intake per day : less than 2300 mg Educated patient on: ( R = reviewed V = verbalizes understanding N/R = needs review N/A = not applicable Food sources of carbohydrate, adequate serving sizes and its role in various health conditions: R V N/R Differences between complex carbohydrates a simple carbohydrates, role of fiber in diet: R Lean protein sources of foods: R Differences between types of fats and role in diet (mono on saturated fat fatty acids, saturated fatty acids, trans fats): R Food sources of sodium in salt and healthy modifications for heart health in kidney health: R Vitamins and minerals: R V N/R Healthy plate method concept: R Physical activity: Benefits a precaution: R Patient Instructions: Choose low sodium food options -see list of low sodium food options Continue working on following healthy plate method including fiber rich foods Coding Level of Care Code Nutr Indiv Subseq (20326) Diagnoses Class 3 obesity E66.813 Time Spent (min) 24
[2024-08-20 09:37] VITALS: BMI 44.6
--- OUTSIDE RECORDS SUMMARY | 2024-08-20 09:53 | XMS_ITS | Encounter Summary ---
Author Organization [employer] Address [address] [place] [address] 7t [place] [address] Care Team Providers Care Porcelain Turner Name Role Phone Unavailable Primary Care Provider Unavailabl e Encounter Details Date Type Department Care Team (Latest Contact Info) Description 09/23/2018 Abstract [facility] CONVERSIONS Dental, Provider, DDS Social History [...]
--- OUTSIDE RECORDS SUMMARY | 2024-08-20 09:53 | XMS_ITS | Continuity of Care Document ---
Author Organization [facility] ter Address [address] [place] [address]- Care Team Providers Care Store Director Name Role Phone Husam Jeter Primary Care Physician Encounter [facility] Date(s): 08/15/24 - 08/16/[address] [address]- Discharge Disposition: A-D/C Home Attending Physician: Nixon Larsen MD Admitting Physician: Nixon Larsen MD Referring Physician: Not on Staff, Referring MD Encounter Type: Disch ES Allergies, Adverse Reactions, Alerts No Known Medication Allergies Immunizations Given and Recorded Vaccine Date Status Refusal Reason tetanus/diphtheria/pertussis, acel(Tdap) 08/16/24 Given Problem List Condition Confirmation Course Effective Dates Status Health St atus Informant Severe obesity Confirmed Active Vital Signs Most recent to oldest [Reference Range]: 1 2 3 Height 175 cm (08/16/24 2:41 AM) 175 cm (08/16/24 12:01 AM) 175 cm (08/15/24 11:55 PM) Weight 138.7 kg (08/16/24 2:41 AM) 138.7 kg (08/16/24 12:01 AM) 138.7 kg (08/15/24 11:55 PM) Oxygen Saturation [94-100 %] 100 % (08/16/24 2:41 AM) 97 % (08/15/24 11:55 PM) Pulse Rate [55-90 bpm] 75 bpm (08/16/24 2:41 AM) 99 bpm *H* (08/15/24 11:55 PM) Body Mass Index [18.5-24.99 kg/m2] 45.29 kg/m2 *>HHI* (08/15/24 11:55 PM) Blood Pressure [90-138/55-84 mm Hg] 145/88mm Hg *H* (08/16/24 2:41 AM) 166/84mm Hg *H* (08/15/24 11:55 PM) Respiratory Rate [16-30 br/min] 18 br/min (08/16/24 2:41 AM) 17 br/min (08/15/24 11:55 PM) Temperature [96.8-100.4 DegF] 97.8 DegF (08/15/24 11:55 PM) Mode of Delivery (Oxygen) Room air (08/16/24 2:41 AM) Room air (08/15/24 11:55 PM) Blood pressure sites Arm, left (08/15/24 11:55 PM) Temperature Route Oral (08/15/24 11:55 PM) Dry Weight 138.7 kg (08/16/24 2:41 AM) 138.7 kg (08/16/24 12:01 AM) 138.7 kg (08/15/24 11:55 PM) Weight Obtained Via Patient/family state d (08/15/24 11:55 PM) Dry Weight Obtained Via Patient/family s tated (08/15/24 11:55 PM) Patient Care team information Care Team Personnel Name: Husam Jeter Position: Reference Physician Member Role: PCP Address: [address] [place] [address] [place] [address] Telecom: Care Team Related Persons Name: ELVIN GAYTAN Insurance Providers Guarantor name: FRANSISCA Health Plan Information #: 2 Payer: [employer] Member Number: [id number] Policy Number: NA Group Number: NA Health Plan Information #: 1 Payer: [employer] Member Number: [id number] Policy Number: NA Group Number: NA
--- OUTSIDE RECORDS SUMMARY | 2024-08-20 09:53 | XMS_ITS | Clinical Summary ---
Demographics Address [address] [facility] [address] [place] [address] Home Phone Work Phone Email Address Preferred Language en Marital Status Unknown Hindu Affiliation Unknown Race Other Race Ethnic Group or Author Organization [employer] Address [address] [facility] 7t [place] [address] Care Team Providers Care Disposal Worker Name Role Phone Unavailable Primary Care Provider [...]
--- OUTSIDE RECORDS SUMMARY | 2024-08-20 09:53 | XMS_ITS | Clinical Summary ---
Author Organization [facility] Facility Address [address] [place] [address] Care Team Providers Care Outside Machinist Name Role Phone Husam Beatty Primary Care Provider [phone] Social History Tobacco Use Types Packs/Day Years [...] Colorectal Cancer Screening: Sigmoidoscopy 2021 Influenza Vaccine (Season Ended) 2025 Pneumococcal Vaccine: Pediat rics (0 to 5 Years) and At-Risk Patients (6 to 64 Years) Aged Out No longer eligible b ased on patient's age to complete this topic Insurance [facility] MEDICAID * Guarantor: Darwin Carballo Account Type Relation to Patient Date of Phone Billing Address Personal/Family Self [address] [place] [address] [facility] MEDICAID Care Teams Outside Machinist Relationship Specialty Start Date End Date Husam Beatty PA [address] [place] [address], [address] [place], [place] [phone] PCP - General Physician Port Traffic Manager 08/30/22
== END 2024-08-20 10:10 | disposition home or self-care (01) ==
LOC: HO.ENCR 09:15
PROVIDERS: PCP Physician Assistant; Visit Provider Dietitian, Registered
DX: E66.813 Obesity, class 3 (principal)

== ENCOUNTER → 2024-08-20 09:15 | Outpatient (BNVA) | payer OTHER, SELFPAY | PROVIDERS: PCP Physician Assistant; Visit Provider Dietitian, Registered | DX: E66.813 Obesity, class 3 (principal); Z71.3 Dietary counseling and surveillance; Z68.41 Body mass index [BMI] 40.0-44.9, adult | CPT/HCPCS: 97803 ==

== ENCOUNTER 2024-09-10 07:47 | Outpatient (REF) | payer OTHER, SELFPAY ==
--- OUTSIDE RECORDS SUMMARY | 2024-09-10 07:50 | XMS_ITS | Clinical Summary ---
Demographics Address [address] [facility] [address] [place] [address] Home Phone Work Phone Email Address Preferred Language en Marital Status Unknown Oriental Orthodox Affiliation Unknown Race Other Race Ethnic Group or Author Organization [employer] Address [address] [facility] 7t [place] [address] Care Team Providers Care Mlt Name Role Phone Unavailable Primary Care Provider [...]
--- OUTSIDE RECORDS SUMMARY | 2024-09-10 07:50 | XMS_ITS | Clinical Summary ---
Author Organization [facility] Facility Address [address] [place] [address] Care Team Providers Care Human Performance Technologist Name Role Phone Husam Beatty Primary Care Provider [phone] Social History Tobacco Use Types Packs/Day Years Used Date Smoking Tobacco: Never Assessed Sex and Gender Information Value Date Recorded Sex Assigned at Not on file Legal Sex Male 9:01 AM EDT Gender Identity Not on file Sexual Orientation Not on file Plan of Treatment Health Maintenance Due Date Last Done Comments Hepatitis B Vaccine (1 of 3 - 19+ 3-dose series) 10/25 Colorectal Cancer Screening: Annual FOBT 2021 Colorectal Cancer Screening: Colonoscopy 2021 Colorectal Cancer Screening: Sigmoidoscopy 2021 Pneumococcal Vaccine: 50+ Years (1 of 1 - PCV) 023 Influenza Vaccine (Season Ended) 2025 Insurance [facility] Medicaid [address] [place] [id number] [facility] Medicaid Care Teams Human Performance Technologist Relationship Specialty Start Date End Date Husam Beatty PA [address] [place] [address], [address] [place] [address] PCP - General Physician Summer Analyst 08/30/22
--- OUTSIDE RECORDS SUMMARY | 2024-09-10 07:50 | XMS_ITS | Encounter Summary ---
Author Organization [employer] Address [address] [place] [address] 7t [place] [address] Care Team Providers Care Electromechanisms Design Drafter Name Role Phone Unavailable Primary Care Provider Unavailabl e Encounter Details Date Type Department Care Team (Latest Contact Info) Description 09/23/[address] [facility] CONVERSIONS Dental, Provider, DDS Social History [...]
[2024-09-10 08:49] LABS: Hematocrit 47.6 % (42.0-52.0); Hemoglobin 15.1 g/dl (14.0-18.0); Mean Corpuscular HGB Conc 31.7 g/dl (31.0-36.0); Mean Corpuscular Hemoglobin 27.1 pg (27.0-33.0); Mean Corpuscular Volume 85.5 fL (80.0-98.0); Mean Platelet Volume 10.6 fL (9.4-12.4); Platelet Count 205 X10*3/uL (160-400); Red Blood Count 5.57 X10*6/uL (4.60-5.80); Red Cell Distribution Width 15.2 % (11.0-16.0); White Blood Count 9.4 X10*3/uL (4.8-10.8)
[2024-09-10 08:56] LABS: Estimated Average Glucose 137 mg/dL; Hemoglobin A1c % 6.4 % (<6.0); Total Hemoglobin (HGBA1C) 3803.1396 umol/L
[2024-09-10 09:24] LABS: Alanine Aminotransferase 35 U/L (0-40); Albumin Level 4.2 g/dL (3.5-5.0); Alkaline Phosphatase 88 U/L (39-117); Anion Gap 13 (12-20); Aspartate Amino Transferase 31 U/L (5-37); Bilirubin Total 0.8 mg/dL (0.0-1.0); Blood Urea Nitrogen 7 mg/dL (9-16); Calcium 9.4 mg/dL (8.4-10.2); Carbon Dioxide 28 mmol/L (22-29); Chloride 105 mmol/L (96-108); Cholesterol 105 mg/dL (<200); Estimated Glomerular Filt Rate > 60; Glucose Fasting 109 mg/dL (60-99); HDL Cholesterol 36 mg/dL (>40); LDL Cholesterol Calculated 51 mg/dL (<100); Potassium 3.7 mmol/L (3.3-5.1); Sodium 142 mmol/L (135-145); Total Protein 7.4 g/dL (6.5-8.0); Triglycerides 92 mg/dL (<150)
[2024-09-11 04:38] LABS: NT-proBNP 261 pg/mL (<125)
[2024-09-11 04:59] LABS: Follicle Stimulating Hormone 4.3 mIU/mL (1.4-12.8); Prolactin 10.8 ng/mL (2.0-18.0)
[2024-09-17 08:19] LABS: Testosterone, Free 69.5 pg/mL (35.0-155.0); Testosterone, Total 336 ng/dL (250-1100)
== END 2024-09-10 07:48 | disposition home or self-care (01) ==
LOC: HO.LAB 07:47
PROVIDERS: PCP Physician Assistant; Visit Provider Urology
DX: R53.83 Other fatigue (principal); R79.89 Other specified abnormal findings of blood chemistry; I50.20 Unspecified systolic (congestive) heart failure; I25.10 Atherosclerotic heart disease of native coronary artery without angina pectoris
CPT/HCPCS: 36415; 80053; 80061; 83001; 83002; 83036; 83880; 84146; 84402; 84403; 85027

== ENCOUNTER 2024-09-18 16:06 | Outpatient (AMB) | payer OTHER, SELFPAY ==
--- NOTE | 2024-09-18 16:11 | A.OFFVIS_ITS ---
Intake Visit Reasons: 7 weeks/ Testo Intake Note: Patient presents to office today for low testosterone Urology Medications- None Allergies to Antibiotic- No Known Allergies Blood Thinner- Aspirin Allergies No Known Allergies (No Known Allergies*) Allergy (Verified 12/03/24 16:07) HPI Comments Details: 09/18/24-- Here for follow up, Low Testosterone. LV---07/28/24--Darwin is a 53-year-old male presenting with low testosterone levels. Identified on May 20, 2022, with a serum testosterone level of 238 ng/dL, he reports significant fatigue, lack of motivation, and weight gain linked to low testosterone. The patient has a history of complex renal cysts, managed asthma, prediabetes, and pulmonary congestion. He has been treated with Furosemide since April 2023, which has ameliorated previous shortness of breath. Sexual activities are less frequent due to exertional dyspnea, though the patient reports intact erections. Results - Labs: TT--336, FT--69--09/10/24 - Labs: Testosterone level at 238 ng/dL, measured May 20, 2022. - Labs: Prostate-Specific Antigen (PSA) at 1.01, measured May 20, 2022. 01/10/2023? Darwin was last seen by me on 11/01/2022 for complex renal cyst. CT of the abdomen with/without IV contrast was ordered. He has past medical history of hypertension, on metformin for pre-diabetes, Obesity. He denies any other new concerns or complaints at this time. I reviewed the CTAP-w/wo IV contrast results from 01/01/2023 revealed bilateral renal cysts, largest on the left measuring 7.1 cm with no suspicious CT features. Review of charts: Last visit: 11/01/2022? Renal US results reviewed?09/29/22-- 7.6 cm incompletely characterized septated cyst in the lower left kidney. PSA--01/06/22--0.69. [facility] Medical History Chronic combined systolic and diastolic CHF (congestive heart failure) H. 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 Cognitive needs: No Hearing needs: No Vision needs: No Review of Systems Const All systems reviewed & are unremarkable except as noted in HPI and below Reports no additional complaints Eyes Reports no additional complaints ENT Reports no additional complaints Card Reports no additional complaints Resp Reports no additional complaints GI Reports no additional complaints Reports as per HPI Musc Reports no additional complaints Skin/Breast Reports system reviewed and no additional complaints, except as documented Neuro Reports no additional complaints Psych Reports no additional complaints Endo Reports no additional complaints Albert/Lymph Reports no additional complaints Aller/Immun Reports no additional complaints Assessment & Plan Assessment & Plan (1) Low testosterone in male: Code(s): R79.89 - Other specified abnormal findings of blood chemistry Category: Medical (2) Renal cyst: Code(s): N28.1 - Cyst of kidney, acquired Category: Medical Plan - cont testosterone replacement theray - Weight management Medications: New testosterone 2 pumps topical DAILY 75 grams 2RF 30 days Patient Instructions: The patient had an opportunity to ask questions regarding treatment plan. The patient expressed understanding and agreement with the above treatment plan. The patient is aware they should contact our office by phone for worsening of their current condition or the appearance of new symptoms. Compliance is encouraged with any medications and followup testing that is ordered. It is a privilege to be allowed the opportunity to participate in the urologic care of your patient. If you have any questions or concerns regarding treatment for the above conditions please do not hesitate to contact me. The office telephone contact is [phone]. This note is constructed in part using voice recognition software. While every effort has been made to ensure accuracy associate theatre professor errors may have been included. Yours sincerely, Cm Jeroem MD Coding Level of Care Code Est Pt Level 3 (67320) Diagnoses Low testosterone in male R79.89 Renal cyst N28.1
--- OUTSIDE RECORDS SUMMARY | 2024-09-18 16:16 | XMS_ITS | Clinical Summary ---
Author Organization [facility] Facility Address [address] [place] [address] Care Team Providers Care Electron Tube Assembler Name Role Phone Husam Beatty Primary Care Provider [phone] Social History Tobacco Use Types Packs/Day Years [...] 023 Influenza Vaccine (Season Ended) 2025 Insurance [facility] [place] [address] [place] [address] [facility] [place] [address] Care Teams Electron Tube Assembler Relationship Specialty Start Date End Date Husam Beatty PA [address] [place] [address], [address] [place] [address] PCP - General Physician Ceramic Research Engineer 08/30/22
--- OUTSIDE RECORDS SUMMARY | 2024-09-18 16:16 | XMS_ITS | Encounter Summary ---
Author Organization [employer] Address [address] [facility] [address] [place] [address] Care Team Providers Care Rider Ticket Worker Name Role Phone Unavailable Primary Care Provider Unavailabl e Encounter Details Date Type Department Care Team (Latest Contact Info) Description 09/23/2018 Abstract [facility] CONVERSIONS Dental, Provider, DDS Social History Tobacco [...]
--- OUTSIDE RECORDS SUMMARY | 2024-09-18 16:16 | XMS_ITS | Clinical Summary ---
Demographics Address [address] [facility] [address] [place] [address] Home Phone Work Phone Email Address Preferred Language en Marital Status Unknown Jew Affiliation Unknown Race Other Race Ethnic Group Unknown Author Organization [employer] Address [address] [address] [place] [address] Care Team Providers Care Franchise Field Consultant Name Role Phone Unavailable Primary Care Provider [...]
== END 2024-09-18 16:45 | disposition home or self-care (01) ==
LOC: HO.HUSH 16:07
PROVIDERS: PCP Physician Assistant; Visit Provider Urology
DX: R79.89 Other specified abnormal findings of blood chemistry (principal); N28.1 Cyst of kidney, acquired
CPT/HCPCS: 99213

== ENCOUNTER → 2024-09-18 16:06 | Outpatient (BNVA) | payer OTHER, SELFPAY | PROVIDERS: PCP Physician Assistant; Visit Provider Urology | DX: R79.89 Other specified abnormal findings of blood chemistry (principal); N28.1 Cyst of kidney, acquired | CPT/HCPCS: 99212 ==

== ENCOUNTER 2024-10-08 09:24 | Outpatient (AMB) | payer OTHER, SELFPAY ==
[2024-10-08 09:28] VITALS: BP 150/86; PULSE 79; BMI 47.3
--- NOTE | 2024-10-08 09:28 | MHC.OFFVIS ---
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 systolic heart failure Intake Note: New patient unspecified systolic heart failure feeling good Apiarist Required: No Allergies No Known Allergies [No Known Allergies*] Allergy (Verified 07/28/24 15:53) Medication List - Last Reconciled 10/08/24 by Per Sadler MD albuterol sulfate 90 mcg/actuation 2 puffs inhalation Q4-6H PRN 30 days amlodipine 10 mg PO DAILY 90 days aspirin 81 mg PO DAILY 90 days atorvastatin 20 mg PO DAILY benzonatate 200 mg PO BEDTIME PRN blood pressure kit-extra large As directed CPAP (CPAP Machine/Device) As directed doxazosin 2 mg PO DAILY 90 days fluticasone propion-salmeterol 115-21 mcg/actuation (Advair HFA) 2 puffs inhalation BID PRN furosemide 40 mg PO DAILY ibuprofen 600 mg PO Q6H PRN loratadine 10 mg PO DAILY PRN losartan-hydrochlorothiazide 100-25 mg 1 tab PO DAILY 90 days metformin 500 mg PO DAILY PRN omeprazole 40 mg PO DAILY 90 days testosterone 2 pumps topical DAILY 30 days HPI Comments Details: Darwin is here for consultation regarding congestive heart failure. He states that he has had hypertension for many years, probably not well controlled. He works in the [employer] business and he states that during the day he is fine at work but when he goes home on tries to climb stairs, he can get short of breath. No clear-cut anginal-type symptoms. He has had some coughing episodes and congestion as well at different times. Vague history of possible heart attack around 8-9 years ago but no further information. [facility] Medical History (Updated 10/08/24 @ 09:51 by Per Sadlre MD) Chronic combined systolic and diastolic CHF (congestive heart failure) H. 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 Cognitive needs: No Hearing needs: No Vision needs: No Review of Systems Const Denies chills, Denies daytime sleepiness, Denies fatigue, Denies fever(s), Denies frequent falls, Denies poor appetite, Denies snoring, Denies stops breathing during sleep, Denies weakness, Denies weight gain and Denies weight loss Eyes Denies loss of vision ENT Denies dizziness and Denies hearing loss Card Denies chest pain, Denies claudication, Denies leg edema, Denies lightheadedness, Denies palpitations, Denies dyspnea, Denies dyspnea on exertion and Denies orthopnea Resp Denies cough, Denies excessive phlegm production, Denies dyspnea, Denies dyspnea on exertion, Denies snoring and Denies wheezing GI Denies abdominal pain, Denies hematochezia, Denies change in bowel habits, Denies nausea and Denies vomiting Denies dysuria and Denies urinary frequency Musc Denies arthralgias, Denies muscle weakness, Denies numbness and Denies other (frequent falls) Skin/Breast Denies nail changes and Denies rash Neuro Denies Abnormal speech present, Denies dizziness, Denies frequent falls, Denies loss of vision, Denies memory loss, Denies numbness and Denies weakness Psych Denies depression and Denies memory loss Endo Denies fatigue and Denies palpitations Albert/Lymph Reports easy bruising and Reports other (anemia) Aller/Immun Denies wheezing Physical Exam Vital Signs: Last Vital Signs Pulse 79 10/08/24 09:28 BP 150/86 H 10/08/24 09:28 BMI result Body Mass Index 47.3 Const General: comfortable and no acute distress Orientation/consciousness: patient oriented x3 HEENT Other: Unremarkable Head: Yes normal to inspection Neck Neck: Yes normal visual inspection Chest Chest palpation & inspection: normal inspection of the chest Resp Auscultation: clear to auscultation bilaterally Cardio Palpation: normal PMI Heart sounds: S1 normal heart sound present, S2 normal heart sound present, no gallops, no murmurs and no rubs GI Palpation (GI): Soft to palpation Back/Spine/Pelvis Other: unremarkable Skin General skin exam: no rashes or lesions noted Neuro General: patient oriented x3 Speech: No Abnormal speech present Extrem General: Yes normal to inspection Psych Mental Status: mental status grossly normal Office Procedures EKG Details: EKG with underlying sinus rhythm at 79/Min; biatrial enlargement; lateral nonspecific T inversions which could be related to hypertension; no ischemic changes; [place] [id number], Complete Assessment & Plan Assessment & Plan (1) Chronic combined systolic and diastolic CHF (congestive heart failure): Code(s): I50.42 - Chronic combined systolic (congestive) and diastolic (congestive) heart failure Category: Medical Plan: In the echocardiogram, LVEF is 30-35%. Basal septal hypertrophy and moderate diastolic dysfunction. Also reported regional wall motion abnormalities-but not localized. Findings discussed with the patient. Recommend diagnostic catheterization for further evaluation. He is willing to proceed with that. For medications, he is on lisinopril/hydrochlorothiazide. Add carvedilol which should also help blood pressure. Add Farxiga. (2) HTN (hypertension): Code(s): I10 - Essential (primary) hypertension Category: Medical Qualifiers: Hypertension type: essential hypertension Qualified Code(s): I10 - Essential (primary) hypertension Plan: Suspect poorly controlled longstanding hypertension. Addition of carvedilol as above should help. (3) Class 3 obesity: Code(s): E66.813 - Obesity, class 3 Category: Medical Plan: In the long run, weight loss will be most beneficial for him. However, not attempt any aggressive exercise for now. Plan Discussion Notes During the consultation, I reviewed with the patient the diagnosis of congestive heart failure and the need for ongoing management with diuretics. I explained the potential need for an angiogram to evaluate for coronary blockages. We discussed the addition of two medications to better control his hypertension and support cardiac function. I emphasized the importance of regular CPAP use to minimize cardiac stress and potential complications. The patient was informed of the risks and benefits associated with the prescribed medications and the angiogram procedure. Follow-up cardiac evaluation and monitoring were outlined, and the patient expressed understanding and consented to the proposed plan. Patient was informed and verbally consented to the use of an ambient scribe for clinic note documentation during this visit. Orders: Orders Basic Metabolic Panel Today I50.42 - Chronic combined systolic (congestive) and diastolic (congestive) heart failure Prothrombin Time INR Today I25.10 - Atherosclerotic heart disease of [place] coronary artery without angina pectoris Cardiac Cath LT Diagnostic Today I25.10 - Atherosclerotic heart disease of [place] coronary artery without angina pectoris B Type Natriuretic Peptide Today I50.42 - Chronic combined systolic (congestive) and diastolic (congestive) heart failure Complete Blood Count no Diff Today I50.42 - Chronic combined systolic (congestive) and diastolic (congestive) heart failure Medications: New carvedilol (Coreg) must administer with a meal/food 12.5 mg PO BID 180 tabs 1RF 90 days dapagliflozin propanediol (Farxiga) 10 mg PO DAILY 90 tabs 1RF Patient Instructions: - Continue taking your prescribed diuretics as directed. - Use your CPAP machine every night to help your heart. - Take new medications as prescribed. - Report any new or worsening shortness of breath to your healthcare provider. - Follow up as instructed for further cardiac evaluation. - Engage in regular physical activity but avoid overexertion. - Monitor your weight daily; report any rapid weight gain to your healthcare provider. - Stay hydrated but monitor fluid intake as per medical advice. Coding Level of Care Code New Pt Level 4 (19326) Complex EM visit Add On G2211 Diagnoses Chronic combined systolic and diastolic CHF (congestive heart failure) I50.42 Essential hypertension I10 Hypertension type: essential hypertension Class 3 obesity E66.813 CPT Codes EKG - CPT: 46622-[id number], Complete ([id number])
--- OUTSIDE RECORDS SUMMARY | 2024-10-08 10:04 | XMS_ITS | Clinical Summary ---
Demographics Address [address] [facility] [address] [place] [address] Home Phone Work Phone Email Address Preferred Language en Marital Status Unknown Advent Affiliation Unknown Race Other Race Ethnic Group Unknown Author Organization [employer] Address [address] [facility] [address] [place] [address] Care Team Providers Care Wheel Installer Name Role Phone Unavailable Primary Care Provider [...] FOBT 1972 Lipid Panel 1972 Sigmoidoscopy 1972 Disability Screening 1972 Alcohol/Substance Use Screening 1984 Tobacco Screening [...] patient's age to complete this topic Meningococcal B Vaccine Aged Out No l onger eligible based on patient's age to complete [...]
== END 2024-10-08 10:25 | disposition home or self-care (01) ==
LOC: HO.HCS 09:24
PROVIDERS: PCP Physician Assistant; Visit Provider Internal Medicine
DX: I50.42 Chronic combined systolic (congestive) and diastolic (congestive) heart failure (principal); I10 Essential (primary) hypertension; E66.813 Obesity, class 3
CPT/HCPCS: 93010; 99204; G2211

== ENCOUNTER → 2024-10-08 09:24 | Outpatient (BNVA) | payer OTHER, SELFPAY | PROVIDERS: PCP Physician Assistant; Visit Provider Internal Medicine | DX: I11.0 Hypertensive heart disease with heart failure (principal); I25.10 Atherosclerotic heart disease of native coronary artery without angina pectoris; I50.42 Chronic combined systolic (congestive) and diastolic (congestive) heart failure; E66.813 Obesity, class 3 | CPT/HCPCS: 93005; 99202 ==

== ENCOUNTER 2024-10-11 07:40 | Outpatient (REF) | payer OTHER, SELFPAY ==
[2024-10-11 08:23] LABS: Hematocrit 42.2 % (42.0-52.0); Hemoglobin 13.9 g/dl (14.0-18.0); Mean Corpuscular HGB Conc 32.9 g/dl (31.0-36.0); Mean Corpuscular Hemoglobin 27.7 pg (27.0-33.0); Mean Corpuscular Volume 84.1 fL (80.0-98.0); Mean Platelet Volume 10.5 fL (9.4-12.4); Platelet Count 186 X10*3/uL (160-400); Red Blood Count 5.02 X10*6/uL (4.60-5.80); Red Cell Distribution Width 15.9 % (11.0-16.0)
[2024-10-11 08:56] LABS: Anion Gap 12 (12-20); Blood Urea Nitrogen 13 mg/dL (9-16); Calcium 8.8 mg/dL (8.4-10.2); Carbon Dioxide 28 mmol/L (22-29); Chloride 105 mmol/L (96-108); Estimated Glomerular Filt Rate > 60; Glucose Fasting 125 mg/dL (60-99); Glucose Random 124 mg/dL (60-115); Potassium 3.6 mmol/L (3.3-5.1); Sodium 141 mmol/L (135-145)
[2024-10-11 09:04] LABS: B Type Natriuretic Peptide 29 pg/mL (<100)
[2024-10-11 09:45] LABS: Prothrombin Time 11.2 SEC (10.9-12.4)
== END 2024-10-11 07:41 | disposition home or self-care (01) ==
LOC: HO.LAB 07:40
PROVIDERS: Absent Provider Urology; PCP Physician Assistant; Visit Provider Internal Medicine
DX: R53.83 Other fatigue (principal); R79.89 Other specified abnormal findings of blood chemistry; I25.10 Atherosclerotic heart disease of native coronary artery without angina pectoris; I50.42 Chronic combined systolic (congestive) and diastolic (congestive) heart failure
CPT/HCPCS: 36415; 80048; 82947; 83880; 85027; 85610

== ENCOUNTER 2024-10-28 14:20 | Outpatient (AMB) | payer OTHER, SELFPAY ==
--- NOTE | 2024-10-28 14:32 | A.OFFVIS_ITS ---
VS Expanded 10/28/24 14:34 Height 5 ft 8 in Weight 311 lb 15.265 oz BMI 47.4 Intake Visit Reasons: Class 3 obesity Allergies No Known Allergies (No Known Allergies*) Allergy (Verified 07/28/24 15:53) Nutrition Presentation Details: Pt presents for MNT f/u for obesity Pt has hx of T2DM, CHF, CAD, HTN,HDL Pt reports diet indiscretion d/t celebrations/fast food meals BS Monitoring Most Recent Diabetes Results: Cholesterol, (<200) 105 mg/dL 09/10/24 HDL Cholesterol, (>40) 36 mg/dL L 09/10/24 Triglycerides, (<150) 92 mg/dL 09/10/24 Creatinine, (0.5-1.4) 0.80 mg/dL 10/11/24 BUN, (9-16) 13 mg/dL 10/11/24 Sodium, (135-145) 141 mmol/L 10/11/24 Potassium, (3.3-5.1) 3.6 mmol/L 10/11/24 Chloride, (96-108) 105 mmol/L 10/11/24 Carbon Dioxide, (22-29) 28 mmol/L 10/11/24 Calcium, (8.4-10.2) 8.8 mg/dL Δ 10/11/24 AST, (5-37) 31 U/L 09/10/24 ALT, (0-40) 35 U/L 09/10/24 Total Protein, (6.5-8.0) 7.4 g/dL 09/10/24 Albumin, (3.5-5.0) 4.2 g/dL 09/10/24 [facility] Medical History (Updated 10/08/24 @ 09:51 by Per Sadler MD) Chronic combined systolic and diastolic CHF (congestive heart failure) H. 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 Cognitive needs: No Hearing needs: No Vision needs: No Assessment & Plan Assessment & Plan (1) Class 3 obesity: Code(s): E66.813 - Obesity, class 3 Category: Medical Plan: Wt: 135 Kg ( 08/05 ), 134 (09/05), 142 (11/05) Est kcal needs as per MSJ: 2600 (40% carb, 30% protein/fat) Est fluid needs as per 25-30 ml/d: 4100 Est prot per day as per 1 g/kg bw: 135 Recommend fiber intake : 8-10 g per day and gradually increase to 25-28 g per day for women and 35-38 g for men or as tolerated Recommend sodium intake per day : less than 2300 mg Educated patient on: ( R = reviewed V = verbalizes understanding N/R = needs review N/A = not applicable * Food sources of carbohydrate, adequate serving sizes and its role in various health conditions: R V N/R * Differences between complex carbohydrates a simple carbohydrates, role of fiber in diet: R * Lean protein sources of foods: R * Differences between types of fats and role in diet (mono on saturated fat fatty acids, saturated fatty acids, trans fats): R * Food sources of sodium in salt and healthy modifications for heart health in kidney health: R * Vitamins and minerals: R V N/R * Healthy plate method concept: R * Physical activity: Benefits a precaution: R Patient Instructions: Resume meal planning have 4 small meals per day choosing low sodium seasonings , no added salt * 1 meal replacement/day * 1 1/2 cup of yogurt and 2 fruits as snack - bring to work in a cooler * portion of meal at home in the evening :6 oz of lean protein with non starchy vegetables and olive oil and vinegar 1 cup of beans/legumes, and 1 cup of starches * 1/2 sandw or 2 fruits and yogurt choose naturally low sodium foods as snack (fruits, raw vegetables, yogurts, milk ) Coding Level of Care Code Nutr Indiv Subseq (44286) Diagnoses Class 3 obesity E66.813 Time Spent (min) 30
[2024-10-28 14:34] VITALS: BMI 47.4
--- OUTSIDE RECORDS SUMMARY | 2024-10-28 16:37 | XMS_ITS | Clinical Summary ---
Demographics Address [address] [facility] [address] [place] [address] Home Phone Work Phone Email Address Preferred Language en Marital Status Unknown Sikh Affiliation Unknown Race Other Race Ethnic Group Unknown Author Organization [employer] Address [address] [facility] 7[address] [place] [address] Care Team Providers Care Employment Training Specialist Name Role Phone Unavailable Primary Care Provider [...] - 2023-2 5 season) 2024 Influenza Vaccine (Season Ended) 2025 DTaP/Tdap/Td Vaccines (2 - T d or [...]
== END 2024-10-28 15:10 | disposition home or self-care (01) ==
LOC: HO.ENCR 14:20
PROVIDERS: PCP Physician Assistant; Visit Provider Dietitian, Registered
DX: E66.813 Obesity, class 3 (principal)

== ENCOUNTER → 2024-10-28 14:20 | Outpatient (BNVA) | payer OTHER, SELFPAY | PROVIDERS: PCP Physician Assistant; Visit Provider Dietitian, Registered | DX: E66.813 Obesity, class 3 (principal) | CPT/HCPCS: 97803 ==

== ENCOUNTER → 2024-11-04 23:59 | Outpatient (BNV) | payer OTHER, SELFPAY | PROVIDERS: PCP Physician Assistant; Visit Provider Internal Medicine Cardiovascular Disease | DX: I42.9 Cardiomyopathy, unspecified (principal); I50.20 Unspecified systolic (congestive) heart failure | CPT/HCPCS: 93458; 99152 ==

== ENCOUNTER 2024-11-18 14:08 | Outpatient (AMB) | payer OTHER, SELFPAY ==
[2024-11-18 14:16] VITALS: BP 130/72; PULSE 96; BMI 46.8
--- NOTE | 2024-11-18 14:16 | MHC.OFFVIS ---
Vital Signs 11/18/24 14:16 Height 5 ft 8 in Weight 307 lb 12.245 oz BMI 46.8 BP 130/72 Blood Pressure Location Lt brachial Position Sitting Pulse 96 Pulse Source Pulse Oximeter Intake Visit Reasons: 2 wk s/p cath HS Business Enterprise Officer Required: No Allergies No Known Allergies (No Known Allergies*) Allergy (Verified 11/18/24 14:18) Medication List - Last Reconciled 11/18/24 by Jonathon Urbina NP albuterol sulfate 90 mcg/actuation 2 puffs inhalation Q4-6H PRN 30 days amlodipine 10 mg PO DAILY 90 days aspirin 81 mg PO DAILY 90 days atorvastatin 20 mg PO DAILY blood pressure kit-extra large As directed CPAP (CPAP Machine/Device) As directed dapagliflozin propanediol (Farxiga) 10 mg PO DAILY doxazosin 2 mg PO DAILY 90 days fluticasone propion-salmeterol 115-21 mcg/actuation (Advair HFA) 2 puffs inhalation BID PRN furosemide 40 mg PO DAILY ibuprofen 600 mg PO Q6H PRN loratadine 10 mg PO DAILY PRN losartan-hydrochlorothiazide 100-25 mg 1 tab PO DAILY 90 days omeprazole 40 mg PO DAILY 90 days testosterone 2 pumps topical DAILY 30 days HPI Comments Details: This is a 54-year-old male patient coming in for a follow-up visit status post cardiac catheterization. Patient with a history of hypertension, sleep apnea, and obesity. Patient was recently seen for congestive heart failure and abnormal echo that showed an EF between 30-35% with wall motion abnormalities and basal septal hypertrophy. Patient subsequently underwent cardiac catheterization with Dr. May with a at [facility]. Patient states that about 9 years ago there was questions about a heart attack for which he is on aspirin therapy. At his last visit, patient was started on Farxiga and Coreg. Patient states that he recently started Farxiga but he stopped taking Coreg after his 1st dose as he got very dizzy and fatigued. Today, patient reports feeling well overall and denies any symptoms of exertional chest pain, shortness of breath, palpitations, dizziness, orthopnea, PND, leg edema, presyncope, or syncope. [facility] Medical History Chronic combined systolic and diastolic CHF (congestive heart failure) H. 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 Cognitive needs: No Hearing needs: No Vision needs: No Review of Systems ENT Reports dizziness Card Denies chest pain, Denies chest pain at rest, Denies chest pain with activity, Denies rapid heart rate, Denies pedal edema, Denies edema, Denies leg edema, Denies lightheadedness, Denies palpitations, Denies dyspnea, Denies dyspnea on exertion and Denies orthopnea Resp Denies cough, Denies dyspnea and Denies dyspnea on exertion GI Denies hematochezia and Denies change in stool character Musc Denies abnormal gait, Reports limited range of motion, Reports muscle cramps, Denies muscle weakness, Denies numbness, Denies radiating pain into limb, Denies stiffness and Denies tingling Neuro Denies abnormal gait, Reports dizziness, Denies numbness and Denies tingling Endo Denies palpitations Physical Exam Vital Signs: Last Vital Signs Pulse 96 11/18/24 14:16 BP 130/72 11/18/24 14:16 BMI result Body Mass Index 46.8 Const General: cooperative, healthy appearing, comfortable and no acute distress Orientation/consciousness: patient oriented x3 HEENT Head: Yes normal to inspection Neck Neck: Yes normal visual inspection, Yes trachea midline and Yes supple Chest Chest palpation & inspection: normal inspection of the chest Resp Effort & Inspection: normal respiratory effort Auscultation: clear to auscultation bilaterally, no crackles, no rales, no rhonchi and no wheezes Cardio Jugular venous distension: no JVD Palpation: normal PMI Rate: regular rate Rhythm: regular rhythm Heart sounds: S1 normal heart sound present, S2 normal heart sound present, no click, no gallops, no murmurs and no rubs Peripheral pulses: Peripheral pulses 2+ throughout GI Inspection: Yes normal to inspection Palpation (GI): Soft to palpation Auscultation: normal bowel sounds Skin General skin exam: no rashes or lesions noted Neuro General: patient oriented x3 Extrem General: Yes normal to inspection, No no pedal edema and No calf tenderness Psych Appearance: grossly normal Mental Status: mental status grossly normal Speech and movement: Normal speech and movement present Assessment & Plan Assessment & Plan (1) Nonischemic cardiomyopathy: Code(s): I42.8 - Other cardiomyopathies Category: Medical Plan: 05/28/2024-echo study showed [id number] LV systolic dysfunction with EF between 30-35% with basal septal hypertrophy, grade 2 diastolic dysfunction, regional wall motion abnormality consistent with a coronary artery disease, moderately dilated left atrium and right ventricle with preserved RV systolic function, mildly dilated ascending aorta. Following this patient underwent cardiac catheterization that showed nonischemic cardiomyopathy. Continue with neuro hormonal directed medical therapy with Lasix, losartan-hydrochlorothiazide, Farxiga, and amlodipine. We will start patient back on carvedilol starting at a low dose. Advised patient to reach out to the office in case of any symptoms with this. Discussed in detail signs and symptoms to watch for with heart failure. Clinically euvolemic and stable today. We will get an echo before his next visit. (2) Status post cardiac catheterization: Code(s): Z98.890 - Other specified postprocedural states Category: Surgical Plan: 11/04/2024-patient underwent cardiac catheterization with Dr. May at [facility] that showed no significant coronary artery disease. Right wrist catheterization site is well healed. Continue current regimen. And advised on aggressive management of vascular risk factors. (3) HTN (hypertension): Code(s): I10 - Essential (primary) hypertension Category: Medical Qualifiers: Hypertension type: essential hypertension Qualified Code(s): I10 - Essential (primary) hypertension Plan: Blood pressure today is well-controlled. Continue the regimen. Advised monitoring blood pressures with a goal of less than 130/80. (4) [place] (obstructive sleep apnea): Comment: Sleep study in 2020 results were consistent with very severe obstructive sleep apnea. Patient was started on CPAP therapy, with auto Pap mode initially and then after CPAP titration he was supposed to be on CPAP of 15 cm. He did get CPAP equipment , and it is set at auto Pap mode. Is usage remains very poor, he has used only for 3 nights in the last month. Code(s): G47.33 - Obstructive sleep apnea (adult) (pediatric) Category: Medical Plan: Not compliant with his CPAP machine. Emphasized the need for compliance with CPAP for his overall cardiovascular health. Patient verbalizes understanding of this. (5) Class 3 obesity: Code(s): E66.813 - Obesity, class 3 Category: Medical Plan: Patient is currently seen dietitian for heart healthy diet. Patient is also planning to goal on GLP 1 for weight loss management with his PCP. Advised heart healthy diet, regular exercise, losing weight, med compliance, and management of vascular risk factors. Follow up in 5 months. In the interim, patient will call the office with any concerns or change in symptoms. This note was generated using voice recognition software. While every effort has been made to ensure accuracy and proper accredited pharmacy technician, there may be occasional errors that could affect the content or meaning of the described symptoms. Orders: Orders CA echo transthoracic complete 4 Months I50.20 - Unspecified systolic (congestive) heart failure Medications: New carvedilol must administer with a meal/food 3.125 mg PO BID 90 tabs 1RF Coding Level of Care Code Est Pt Level 4 (76902) Complex EM visit Add On G2211 Diagnoses Nonischemic cardiomyopathy I42.8 Status post cardiac catheterization Z98.890 Essential hypertension I10 Hypertension type: essential hypertension [place] (obstructive sleep apnea) G47.33 Class 3 obesity E66.813 Time Spent (min) 32 Comment Time spent in reviewing the chart, test results, assessment, counseling and documentation.
--- OUTSIDE RECORDS SUMMARY | 2024-11-18 14:58 | XMS_ITS | Clinical Summary ---
Author Organization [facility] Facility Address [address] [place] [address] Care Team Providers Care Leakage Tester Name Role Phone Husam Beatty Primary Care Provider [phone] Social History Tobacco Use Types Packs/Day Years [...] of 1 - PCV) 023 Influenza Vaccine (#1) [address] [facility] Medicaid [address] [place] [address] [facility] Medicaid Care Teams Leakage Tester Relationship Specialty Start Date End Date Husam Beatty PA [address] [place] [address], [address] [place] [address] PCP - General Physician Security System Technician 08/30/22
--- OUTSIDE RECORDS SUMMARY | 2024-11-18 14:58 | XMS_ITS | Clinical Summary ---
Demographics Address [address] [facility] [address] [place] [address] Home Phone Work Phone Email Address Preferred Language en Marital Status Unknown Yazdanism Affiliation Unknown Race Other Race Ethnic Group Unknown Author Organization [employer] Address [address] [facility] [address] [place] [address] Care Team Providers Care Bisque Kiln Placer Name Role Phone Unavailable Primary Care Provider [...] 2023-2 5 season) 2024 Influenza Vaccine (#1) 2025 DTaP/Tdap/Td Vaccines (2 - T d [...]
== END 2024-11-18 15:09 | disposition home or self-care (01) ==
LOC: HO.HCS 14:08
PROVIDERS: PCP Physician Assistant
DX: I42.8 Other cardiomyopathies (principal); Z98.890 Other specified postprocedural states; I10 Essential (primary) hypertension; G47.33 Obstructive sleep apnea (adult) (pediatric); E66.813 Obesity, class 3
CPT/HCPCS: 99214; G2211

== ENCOUNTER → 2024-11-18 14:08 | Outpatient (BNVA) | payer OTHER, SELFPAY | PROVIDERS: PCP Physician Assistant | DX: I10 Essential (primary) hypertension (principal); I42.8 Other cardiomyopathies; Z98.890 Other specified postprocedural states; G47.33 Obstructive sleep apnea (adult) (pediatric); E66.813 Obesity, class 3; I50.20 Unspecified systolic (congestive) heart failure | CPT/HCPCS: 99212 ==

== ENCOUNTER 2024-11-26 09:17 | Outpatient (AMB) | payer OTHER, SELFPAY ==
[2024-11-26 09:23] VITALS: BP 130/80; PULSE 83; O2SAT 96; BMI 47.1
--- NOTE | 2024-11-26 09:23 | MHC.OFFVIS ---
Vital Signs 11/26/24 09:23 Height 5 ft 8 in Weight 309 lb 11.991 oz BMI 47.1 BP 130/80 Blood Pressure Location Lt brachial Position Sitting Pulse 83 Pulse Source Pulse Oximeter Pulse Oximetry (%) 96 Oxygen Delivery Method Room Air Intake Visit Reasons: Asthma/Follow Up [place], [place] (obstructive sleep apnea) Intake Note: pt is here for follow up Allergies No Known Allergies (No Known Allergies*) Allergy (Verified 11/26/24 09:31) Medication List - Last Reconciled 11/26/24 by Julianna Villanueva MD albuterol sulfate 90 mcg/actuation 2 puffs inhalation Q4-6H PRN 30 days amlodipine 10 mg PO DAILY 90 days aspirin 81 mg PO DAILY 90 days atorvastatin 20 mg PO DAILY blood pressure kit-extra large As directed carvedilol 3.125 mg PO BID CPAP (CPAP Machine/Device) As directed dapagliflozin propanediol (Farxiga) 10 mg PO DAILY doxazosin 2 mg PO DAILY 90 days fluticasone propion-salmeterol 115-21 mcg/actuation (Advair HFA) 2 puffs inhalation BID PRN furosemide 40 mg PO DAILY ibuprofen 600 mg PO Q6H PRN loratadine 10 mg PO DAILY PRN losartan-hydrochlorothiazide 100-25 mg 1 tab PO DAILY 90 days omeprazole 40 mg PO DAILY 90 days testosterone 2 pumps topical DAILY 30 days Do you need a note to return to daycare/school/sports/work: No HPI HPI Asthma/Follow Up [place]: Details: THIS 54 YEARS OLD GENTLEMAN IS A CASE OF MORBID OBESITY, CURRENT BMI 47.1. HE IS DIAGNOSED TO HAVE SEVERE OBSTRUCTIVE SLEEP APNEA AND HAS BEEN PROVIDED THE CPAP DEVICE. HE IS TRYING TO USE THE CPAP BUT HAS NOT BEEN VERY COMPLIANT. HE DENIES DAYTIME SLEEPINESS AND HAS BEEN WORKING ACTIVELY. BRONCHIAL ASTHMA IS UNDER GOOD CONTROL AND HE DOES NOT NEED TO USE THE INHALER ON A DAILY BASIS. DENIES ANY COUGH OR WHEEZING AND ONLY HAS MILD SHORTNESS OF BREATH ON HEAVY PHYSICAL EXERTION. RECENTLY HE HAD CARDIAC CATHETERIZATION AND WAS TOLD THAT HE DID NOT HAVE ANY SIGNIFICANT CORONARY ARTERY DISEASE. [facility] Medical History Chronic combined systolic and diastolic CHF (congestive heart failure) H. 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 Cognitive needs: No Hearing needs: No Vision needs: No Review of Systems Const All systems reviewed & are unremarkable except as noted in HPI and below Eyes Reports no additional complaints ENT Reports no additional complaints Card Denies chest pain, Denies irregular heart rhythm, Denies leg edema and Denies lightheadedness Resp Reports as per HPI GI Reports no additional complaints and Reports heartburn (Treated with omeprazole p.r.n.) Reports nocturia Musc Reports no additional complaints Skin/Breast Reports system reviewed and no additional complaints, except as documented Neuro Reports no additional complaints Psych Reports no additional complaints Physical Exam Vital Signs: Last Vital Signs Pulse 83 11/26/24 09:23 BP 130/80 11/26/24 09:23 Pulse Ox 96 11/26/24 09:23 Oxygen Delivery Method Room Air 11/26/24 09:23 BMI result Body Mass Index 47.1 Const General: comfortable, no acute distress, alert and awake; No healthy appearing (Except for being overweight) Orientation/consciousness: patient oriented x3 HEENT Head: Yes normal to inspection General nose exam: No nasal polyps present and No nasal discharge present Face and sinus: Yes sinuses nontender Mouth: oropharynx abnormals (Narrow and crowded, Mallampati class 3) Throat: Yes posterior oropharynx normal Eyes General: appearance normal, both eyes and all related structures Neck Other: Neck circumference 18 in Neck: Yes normal visual inspection, Yes no lymphadenopathy, Yes trachea midline and Yes no JVD Thyroid: Thyroid normal Chest Chest palpation & inspection: normal inspection of the chest, normal palpation of entire chest wall and no tenderness Resp Effort & Inspection: normal respiratory effort Auscultation: clear to auscultation bilaterally, no crackles and no wheezes Cardio Palpation: normal PMI Rate: regular rate Rhythm: regular rhythm Heart sounds: no gallops and no murmurs Peripheral pulses: Peripheral pulses 2+ throughout GI Palpation (GI): Soft to palpation, nontender, No hepatosplenomegaly present and no masses Auscultation: normal bowel sounds Back/Spine/Pelvis Thoracic/Lumbar Spine: thoracic and lumbar spine normal to inspection Skin General skin exam: no rashes or lesions noted Neuro General: patient oriented x3 and no focal motor deficits Cranial nerves: Yes CN's II-XII intact bilaterally Extrem General: Yes normal to inspection, Yes no clubbing, cyanosis or edema and Yes no calf tenderness Psych Appearance: grossly normal and well kempt Speech and movement: Normal speech and movement present Results Reviewed Results Reviewed: COMPLIANCE REPORT INDICATES THAT OUT OF PAST 90 DAYS HE HAS USE THE CPAP ONLY FOR 9 NIGHTS. AVERAGE USE IT PER NIGHT 3 HOURS 35 MINUTES. THIS INDICATES THAT HIS COMPLIANCE IS TOTALLY SUB OPTIMAL Assessment & Plan Assessment & Plan (1) [place] (obstructive sleep apnea): Comment: Sleep study in 2020 results were consistent with very severe obstructive sleep apnea. Patient was started on CPAP therapy, with auto Pap mode initially and then after CPAP titration he was supposed to be on CPAP of 15 cm. He did get CPAP equipment , and it is set at auto Pap mode. His usage remains very poor, he has used only for 9 nights in the last 3 month. Code(s): G47.33 - Obstructive sleep apnea (adult) (pediatric) Category: Medical Plan: HAD A LENGTHY DISCUSSION WITH HIM. HE PROMISES THAT HE IS GOING TO USE IT EVERY NIGHT. I AM GOING TO SEE HIM AFTER 2 MONTHS TO MONITOR HIM FOR THE COMPLIANCE. Coding Level of Care Code Est Pt Level 3 (54371) Diagnoses [place] (obstructive sleep apnea) G47.33
--- OUTSIDE RECORDS SUMMARY | 2024-11-26 09:38 | XMS_ITS | Clinical Summary ---
Demographics Address [address] [facility] [address] [place] [address] Home Phone Work Phone Email Address Preferred Language en Marital Status Unknown Episcopal Affiliation Unknown Race Other Race Ethnic Group Unknown Author Organization [employer] Address [address] [facility] [address] [place] [address] Care Team Providers Care Lime Kiln Worker Name Role Phone Unavailable Primary Care [...]
--- OUTSIDE RECORDS SUMMARY | 2024-11-26 09:38 | XMS_ITS | Clinical Summary ---
Author Organization [facility] Facility Address [address] [place] [address] Care Team Providers Care Java Technical Architect Name Role Phone Husam Beatty Primary Care Provider [phone] Social History Tobacco Use Types Packs/Day Years [...] PCV) 023 Influenza Vaccine (#1) 2025 Insurance [facility] Medicaid [address] [place] [id number] [facility] Medicaid Care Teams Java Technical Architect Relationship Specialty Start Date End Date Husam Beatty PA [address] [place] [address], [address] [place] [address] PCP - General Physician Mine Patrol 08/30/22
== END 2024-11-26 09:40 | disposition home or self-care (01) ==
LOC: HO.HPS 09:18
PROVIDERS: PCP Physician Assistant; Visit Provider Internal Medicine
DX: G47.33 Obstructive sleep apnea (adult) (pediatric) (principal)
CPT/HCPCS: 99213

== ENCOUNTER → 2024-11-26 09:17 | Outpatient (BNVA) | payer OTHER, SELFPAY | PROVIDERS: PCP Physician Assistant; Visit Provider Internal Medicine | DX: G47.33 Obstructive sleep apnea (adult) (pediatric) (principal); E66.01 Morbid (severe) obesity due to excess calories; Z68.42 Body mass index [BMI] 45.0-49.9, adult | CPT/HCPCS: 99212 ==

== ENCOUNTER 2024-12-03 15:51 | Outpatient (AMB) | payer OTHER, SELFPAY ==
[2024-12-03 15:52] VITALS: BP 148/92; PULSE 92; RESP 18; TEMP 36.2; O2SAT 94; BMI 46.8
--- NOTE | 2024-12-03 15:52 | MHC.PC.OV ---
Vital Signs 12/03/24 15:52 Height 5 ft 8 in Weight 308 lb BMI 46.8 BP 148/92 H Blood Pressure Location Lt brachial Position Sitting Respiration 18 Pulse 92 Pulse Source Pulse Oximeter Temp 97.1 F Temp Source Temporal Artery Scan Pulse Oximetry (%) 94 Oxygen Delivery Method Room Air Intake Visit Reasons: PE R/S from 11/27/24 Allergies No Known Allergies (No Known Allergies*) Allergy (Verified 12/03/24 16:07) Medication List - Last Reconciled 12/03/24 by Husam Beatty PA-C albuterol sulfate 90 mcg/actuation 2 puffs inhalation Q4-6H PRN 30 days amlodipine 10 mg PO DAILY 90 days aspirin 81 mg PO DAILY 90 days atorvastatin 20 mg PO DAILY blood pressure kit-extra large As directed carvedilol 3.125 mg PO BID CPAP (CPAP Machine/Device) As directed dapagliflozin propanediol (Farxiga) 10 mg PO DAILY doxazosin 2 mg PO DAILY 90 days fluticasone propion-salmeterol 115-21 mcg/actuation (Advair HFA) 2 puffs inhalation BID PRN furosemide 40 mg PO DAILY ibuprofen 600 mg PO Q6H PRN loratadine 10 mg PO DAILY PRN losartan-hydrochlorothiazide 100-25 mg 1 tab PO DAILY 90 days omeprazole 40 mg PO DAILY 90 days Tobacco use date assessed: 12/03/24 Dental Screening Dental Screen Date: 12/03/24 Did you have a dental visit in the last 12 months?: Yes Did you have a dental problem in the last 6 months where you did not have access to dental care?: No Was dental information given to patient?: Patient has dentist HPI PE R/S from 11/27/24 HPI Details Patient is a 54-year-old male here today for a routine annual physical ? Patient has a past medical history significant for HTN, CAD, obesity, GERD, Concern-> .. Impaired glucose metabolism: . Has been intermittently using metformin. PLAN : For now will hold off on metformin and continue with dietary modifications ? .. ? CAD:? Has been feeling well without any chest discomfort, shortness of breath on exertion. Recently underwent a coronary artery catheterization at [facility] with Dr. May and did not have any significant coronary artery disease.> Most recent lipid panel showing excellent control of his LDL ?Patient does report being hospitalized years ago for chest pain and was told he had coronary artery blockage. Thus he was placed on statin therapy and aspirin. .. GERD:? Use omeprazole on a daily basis with good effect. ? .. ? [place]: ?Has establish care with pulmonology, has been trying to use CPAP machine recently night though reports some coughing fits that do not allow him to keep the CPAP mask on. Colonoscopy :? Had a colonoscopy in 2019 Dr Miller- normal repeat in 10yrs? ( 2028) .. Vaccine:? Up-to-date with tetanus vaccine, Decline COVID Vaccine, UTD declines getting flu shots. [facility] Medical History Chronic combined systolic and diastolic CHF (congestive heart failure) H. 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 1. Little interest or pleasure in doing things: not at all 2. Feeling down, depressed, or hopeless: not at all 3. Trouble falling or staying asleep, or sleeping too much: not at all 4. Feeling tired or having little energy: not at all 5. Poor appetite or overeating: not at all 6. Feeling bad about yourself - or that you are a failure or have let yourself or your family down: not at all 7. Trouble concentrating on things, such as reading the newspaper or watching television: not at all 8. Moving or speaking so slowly that other people could have noticed. Or the opposite - being so fidgety or restless that you have been moving around a lot more than usual: not at all 9. Thoughts that you would be better off or of hurting yourself in some way: not at all Total score: 0 Depression Screening Interpretation: Negative Depression Screening Done: Yes Source: Developed by Drs. Clint Aguilar, Ellie Arteaga, Daron Decker and colleagues, with an educational alfonso from [employer]. Thrive Questionnaire Date Thrive assessed: 07/14/24 I am a: Patient What is your living situation today?: I have a steady place to live Within the past 12 months, did the food you bought not last and you didn't have the money to get more?: Never true Within the past 12 months, did you worry whether your food would run out before you got money to buy more?: Never true Do you have trouble paying for medicines?: No Do you have trouble getting transportation to medical appointments?: No Do you have trouble paying your heating and electricity bill?: No Do you have trouble taking care of your child, family member or friend?: No Do you have trouble with day-to-day activities such as bathing, preparing meals, shopping, managing finances, etc.?: No Are you currently unemployed and looking for a job?: No Are you interested in more education?: No Currently or been in a relationship where the following occur: I choose not to answer THRIVE Score: 0 AUDIT C Alcohol Use Questionnaire (AUDIT-C) 1. How often do you have a drink containing alcohol?: Never 3. How often do you have six or more drinks on one occasion?: Never Total Score: 0 MARGRET-7 AMB Questionnaire MARGRET-7 Date MARGRET - 7 assessed: 07/14/24 Feeling nervous, anxious, or on edge: 0 = Not at all Not being able to stop or control worryin = Not at all Worrying too much about different things: 0 = Not at all Trouble relaxin = Not at all Being so restless that it is hard to sit still: 0 = Not at all Becoming easily annoyed or irritable: 0 = Not at all Feeling afraid as if something awful might happen: 0 = Not at all Total MARGRET-7 score (0-4 normal; 5-9 mild; 10-14 moderate; 15-21 severe): 0 Source: Developed by Drs. Clint Aguilar, Ellie Arteaga, Daron Decker and colleagues, with an educational alfonso from [employer]. Physical exam (Primary Care) Vital Signs: Last Vital Signs Temp 97.1 F 12/03/24 15:52 Pulse 92 12/03/24 15:52 Resp 18 12/03/24 15:52 BP 148/92 H 12/03/24 15:52 Pulse Ox 94 12/03/24 15:52 Oxygen Delivery Method Room Air 12/03/24 15:52 BMI result Body Mass Index 46.8 Tobacco/Smoking Status: Tobacco use Status Tobacco use date assessed 12/03/24 12/03/24 16:04 Patient Tobacco Use Status Former Tobacco user 12/03/24 15:52 e-Cigarette/Vaping Use Never Used 12/03/24 15:52 PHQ-9: PHQ-9 Score PHQ-9: Total score 0 12/03/24 16:04 Depression Screening Interpretation: Negative Thrive Assessment: Date of Thrive Assessment Date Thrive assessed 07/14/24 12/03/24 15:52 Currently or been in a relationship where the following occur: I choose not to answer Results AMB Hemoglobin A1c AMB Hemoglobin A1c 6.1 % Last Edit by Petty Funes CMA on 12/03/24 16:07 Coding Diagnoses [place] (obstructive sleep apnea) G47.33 Assessment & Plan Assessment & Plan (1) [place] (obstructive sleep apnea): Comment: Sleep study in 2020 results were consistent with very severe obstructive sleep apnea. Patient was started on CPAP therapy, with auto Pap mode initially and then after CPAP titration he was supposed to be on CPAP of 15 cm. He did get CPAP equipment , and it is set at auto Pap mode. His usage remains very poor, he has used only for 9 nights in the last 3 month. Code(s): G47.33 - Obstructive sleep apnea (adult) (pediatric) Category: Medical Orders: Orders AMB Hemoglobin A1c Today Z13.9 - Encounter for screening, unspecified Medications: New tirzepatide (weight loss) (Zepbound) for 4 weeks 2.5 mg (0.5 mL) subcut QWEEK 2 mL 0RF 4 weeks E66.813 - Obesity, class 3, G47.33 - Obstructive sleep apnea (adult) (pediatric), I25.10 - Atherosclerotic heart disease of [place] coronary artery without angina pectoris Refilled furosemide 40 mg PO DAILY 90 tabs 0RF I50.20 - Unspecified systolic (congestive) heart failure
--- OUTSIDE RECORDS SUMMARY | 2024-12-03 15:54 | XMS_ITS | Clinical Summary ---
Demographics Address [address] [facility] [address] [place] [address] Home Phone Work Phone Email Address Preferred Language en Marital Status Unknown Orthodoxy Affiliation Unknown Race Other Race Ethnic Group Unknown Author Organization [employer] Address [address] [facility] [address] [place] [address] Care Team Providers Care Relationship Associate Name Role Phone Unavailable Primary Care Provider [...]
--- OUTSIDE RECORDS SUMMARY | 2024-12-03 15:54 | XMS_ITS | Clinical Summary ---
Author Organization [facility] Facility Address [address] [place] [address] Care Team Providers Care Director Export Name Role Phone Husam Beatty Primary Care Provider [phone] Social History Tobacco Use Types Packs/Day Years [...] PCV) 023 Influenza Vaccine (#1) 2025 Insurance [facility] Medicaid [address] [place] [id number] [facility] Medicaid Care Teams Director Export Relationship Specialty Start Date End Date Husam Beatty PA [address] [place] [address], [address] [place] [address] PCP - General Physician Brand Advisor 08/30/22
== END 2024-12-03 16:35 | disposition home or self-care (01) ==
LOC: HO.HMCH 15:51
PROVIDERS: PCP Physician Assistant; Visit Provider Physician Assistant
DX: Z13.9 Encounter for screening, unspecified (principal)

== ENCOUNTER → 2024-12-03 15:51 | Outpatient (BNVA) | payer OTHER, SELFPAY | PROVIDERS: PCP Physician Assistant; Visit Provider Physician Assistant | DX: Z00.00 Encounter for general adult medical examination without abnormal findings (principal); I25.10 Atherosclerotic heart disease of native coronary artery without angina pectoris; K21.9 Gastro-esophageal reflux disease without esophagitis; G47.33 Obstructive sleep apnea (adult) (pediatric); I11.0 Hypertensive heart disease with heart failure; I50.20 Unspecified systolic (congestive) heart failure; R73.09 Other abnormal glucose; E78.00 Pure hypercholesterolemia, unspecified; E66.813 Obesity, class 3; Z68.42 Body mass index [BMI] 45.0-49.9, adult; Z99.89 Dependence on other enabling machines and devices | CPT/HCPCS: 83036; 96127; 99396 ==

== ENCOUNTER 2024-12-31 14:15 | Outpatient (AMB) | payer OTHER, SELFPAY ==
[2024-12-31 14:44] VITALS: BMI 45.6
--- NOTE | 2024-12-31 14:44 | A.OFFVIS_ITS ---
VS Expanded 12/31/24 14:44 Height 5 ft 8 in Weight 299 lb 13.259 oz BMI 45.6 Intake Visit Reasons: obesity Allergies No Known Allergies (No Known Allergies*) Allergy (Verified 12/03/24 16:07) Nutrition Presentation Details: Pt presents for MNT f/u for obesity Pt reports doing well during the week, working on choosing less fried foods Pt verbalizes protein sources of foods and fiber rich foods(legumes/veg) fluids: water/flavored water no sugar , occ soda prot: 70-80 g /day BS Monitoring Most Recent Diabetes Results: Creatinine, (0.5-1.4) 0.80 mg/dL 10/11/24 BUN, (9-16) 13 mg/dL 10/11/24 Sodium, (135-145) 141 mmol/L 10/11/24 Potassium, (3.3-5.1) 3.6 mmol/L 10/11/24 Chloride, (96-108) 105 mmol/L 10/11/24 Carbon Dioxide, (22-29) 28 mmol/L 10/11/24 Calcium, (8.4-10.2) 8.8 mg/dL Δ 10/11/24 [facility] Medical History Chronic combined systolic and diastolic CHF (congestive heart failure) H. 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 Cognitive needs: No Hearing needs: No Vision needs: No Assessment & Plan Assessment & Plan (1) Class 3 obesity: Code(s): E66.813 - Obesity, class 3 Category: Medical Plan: Wt: 135 Kg ( 08/05 ), 134 (09/05), 142 (11/05), 136 kg (01/05) Est kcal needs as per MSJ: 2600 (40% carb, 30% protein/fat) Est fluid needs as per 25-30 ml/d: 4100 Est prot per day as per 1 g/kg bw: 135 Recommend fiber intake : 8-10 g per day and gradually increase to 25-28 g per day for women and 35-38 g for men or as tolerated Recommend sodium intake per day : less than 2300 mg Educated patient on: ( R = reviewed V = verbalizes understanding N/R = needs review N/A = not applicable * Food sources of carbohydrate, adequate serving sizes and its role in various health conditions: R * Differences between complex carbohydrates a simple carbohydrates, role of fiber in diet: R * Lean protein sources of foods: R * Differences between types of fats and role in diet (mono on saturated fat fatty acids, saturated fatty acids, trans fats): R * Food sources of sodium in salt and healthy modifications for heart health in kidney health: R * Vitamins and minerals: R * Healthy plate method concept: R * Physical activity: Benefits a precaution: R Patient Instructions: Work on having 3 meals/day following healthy plate method Choose lean protein , working on portion sizes, 5-6 oz serving of lean protein foods , choose whole grain/fiber rich foods as part of your meal (reducing total carbs to less 100 g ) keep hydrated by having water with meals /snacks Coding Level of Care Code Nutr Indiv Subseq ([id number]) Diagnoses Class 3 obesity E66.813 Time Spent (min) 30
--- OUTSIDE RECORDS SUMMARY | 2024-12-31 15:13 | XMS_ITS | Clinical Summary ---
Author Organization [facility] Facility Address [address] [place] [address] Care Team Providers Care Beater And Pulper Feeder Name Role Phone Husam Beatty Primary Care Provider [phone] Social History Tobacco Use Types Packs/Day Years [...] PCV) 023 Influenza Vaccine (#1) 2025 Insurance [facility] Medicaid [address] [place] [id number] [facility] Medicaid Care Teams Beater And Pulper Feeder Relationship Specialty Start Date End Date Husam Beatty PA [address] [place] [address], [address] [place] [address] PCP - General Physician Distribution Lead 08/30/22
--- OUTSIDE RECORDS SUMMARY | 2024-12-31 15:13 | XMS_ITS | Clinical Summary ---
Demographics Address [address] [facility] [address] [place] [address] Home Phone Work Phone Email Address Preferred Language en Marital Status Unknown Cheondoism Affiliation Unknown Race Other Race Ethnic Group Unknown Author Organization [employer] Address [address] [facility] 7t [place] [address] Care Team Providers Care Gas Burner Operator Name Role Phone Unavailable Primary Care Provider [...]
== END 2024-12-31 15:09 | disposition home or self-care (01) ==
LOC: HO.ENCR 14:16
PROVIDERS: PCP Physician Assistant; Visit Provider Dietitian, Registered
DX: E66.813 Obesity, class 3 (principal)

== ENCOUNTER → 2024-12-31 14:15 | Outpatient (BNVA) | payer OTHER, SELFPAY | PROVIDERS: PCP Physician Assistant; Visit Provider Dietitian, Registered | DX: E66.813 Obesity, class 3 (principal) | CPT/HCPCS: 97803 ==

== ENCOUNTER 2025-01-19 15:56 | Outpatient (AMB) | payer OTHER, SELFPAY ==
[2025-01-19 15:58] VITALS: BP 152/80; PULSE 76; O2SAT 96; BMI 46.4
--- NOTE | 2025-01-19 15:58 | MHC.OFFVIS ---
Vital Signs 01/19/25 15:58 Height 5 ft 8 in Weight 305 lb 5.443 oz BMI 46.4 BP 152/80 H Blood Pressure Location Lt brachial Position Sitting Pulse 76 Pulse Source Pulse Oximeter Pulse Oximetry (%) 96 Oxygen Delivery Method Room Air Intake Visit Reasons: asthma, ARGENT[place] (obstructive sleep apnea) Intake Note: Pt has no concerns. Currently not using Cpap. Neurosurgeon Required: No Accompanied by: Self / Same As Patient Allergies No Known Allergies (No Known Allergies*) Allergy (Verified 01/19/25 16:38) Medication List - Last Reconciled 01/19/25 by Julianna Villanueva MD albuterol sulfate 90 mcg/actuation 2 puffs inhalation Q4-6H PRN 30 days amlodipine 10 mg PO DAILY 90 days aspirin 81 mg PO DAILY 90 days atorvastatin 20 mg PO DAILY blood pressure kit-extra large As directed carvedilol 3.125 mg PO BID CPAP (CPAP Machine/Device) As directed dapagliflozin propanediol (Farxiga) 10 mg PO DAILY doxazosin 2 mg PO DAILY 90 days fluticasone propion-salmeterol 115-21 mcg/actuation (Advair HFA) 2 puffs inhalation BID PRN furosemide 40 mg PO DAILY ibuprofen 600 mg PO Q6H PRN loratadine 10 mg PO DAILY PRN losartan-hydrochlorothiazide 100-25 mg 1 tab PO DAILY 90 days omeprazole 40 mg PO DAILY 90 days tirzepatide (weight loss) (Zepbound) 2.5 mg (0.5 mL) subcut QWEEK 4 weeks Do you need a note to return to daycare/school/sports/work: No HPI HPI asthma: Details: THIS 54 YEARS OLD GENTLEMAN WITH MORBID OBESITY IS DIAGNOSED TO HAVE OBSTRUCTIVE SLEEP APNEA. HE HAS BEEN PROVIDED WITH THE CPAP DEVICE BUT HE HAS REMAINED NONCOMPLIANT. HE COMES TODAY AFTER 2 MONTHS AND WE WERE HOPING THAT HE USED THE CPAP. BUT HE HAS NOT BEEN USING THE CPAP. THE REASON HE GIVES IS THAT HE WORKS WHOLE DAY FOR [employer], COMES HOME BETWEEN 5-6 P.M., HAS HIS DINNER, TAKES A SHOWER, AND GOES TO SLEEP RIGHT AWAY AROUND 19:00 HE FEELS SO MUCH SLEEPY THAT HE DOES NOT HAVE TIME TO PUT ON THE CPAP . HE SAY IS HE DOES GET ABOUT 7 HOURS OF SLEEP EVERY NIGHT. 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 ALSO HAS BRONCHIAL ASTHMA WHICH IS WELL CONTROLLED WITH THE USE OF ADVAIR HFA 2 PUFFS B.I.D. BUT HE USES ONLY P.R.N.. HE REMAINS MORBIDLY OBESE. HE WAS STARTED ON ZEPBOUND, NOW HE NEEDS PRIOR AUTH FOR THIS MEDICATION. [facility] Medical History Chronic combined systolic and diastolic CHF (congestive heart failure) H. 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 Cognitive needs: No Hearing needs: No Vision needs: No Review of Systems Const All systems reviewed & are unremarkable except as noted in HPI and below Eyes Reports no additional complaints ENT Reports no additional complaints Card Denies chest pain, Denies irregular heart rhythm, Denies leg edema and Denies lightheadedness Resp Reports as per HPI GI Reports no additional complaints and Reports heartburn (Treated with omeprazole p.r.n.) Reports nocturia Musc Reports no additional complaints Skin/Breast Reports system reviewed and no additional complaints, except as documented Neuro Reports no additional complaints Psych Reports no additional complaints Physical Exam Vital Signs: Last Vital Signs Pulse 76 01/19/25 15:58 BP 152/80 H 01/19/25 15:58 Pulse Ox 96 01/19/25 15:58 Oxygen Delivery Method Room Air 01/19/25 15:58 BMI result Body Mass Index 46.4 Const General: comfortable, no acute distress, alert and awake; No healthy appearing (Except for being overweight) Orientation/consciousness: patient oriented x3 HEENT Head: Yes normal to inspection General nose exam: No nasal polyps present and No nasal discharge present Face and sinus: Yes sinuses nontender Mouth: oropharynx abnormals (Narrow and crowded, Mallampati class 3) Throat: Yes posterior oropharynx normal Eyes General: appearance normal, both eyes and all related structures Neck Other: Neck circumference 18 in Neck: Yes normal visual inspection, Yes no lymphadenopathy, Yes trachea midline and Yes no JVD Thyroid: Thyroid normal Chest Chest palpation & inspection: normal inspection of the chest, normal palpation of entire chest wall and no tenderness Resp Effort & Inspection: normal respiratory effort Auscultation: clear to auscultation bilaterally, no crackles and no wheezes Cardio Palpation: normal PMI Rate: regular rate Rhythm: regular rhythm Heart sounds: no gallops and no murmurs Peripheral pulses: Peripheral pulses 2+ throughout GI Palpation (GI): Soft to palpation, nontender, No hepatosplenomegaly present and no masses Auscultation: normal bowel sounds Back/Spine/Pelvis Thoracic/Lumbar Spine: thoracic and lumbar spine normal to inspection Skin General skin exam: no rashes or lesions noted Neuro General: patient oriented x3 and no focal motor deficits Cranial nerves: Yes CN's II-XII intact bilaterally Extrem General: Yes normal to inspection, Yes no clubbing, cyanosis or edema and Yes no calf tenderness Psych Appearance: grossly normal and well kempt Speech and movement: Normal speech and movement present Results Reviewed Results Reviewed: COMPLIANCE REPORT NOT AVAILABLE BUT VERBALLY HE TELLS US THAT HE HAS NOT BEEN USING CPAP Assessment & Plan Assessment & Plan (1) [place] (obstructive sleep apnea): Comment: Sleep study in 2020 results were consistent with very severe obstructive sleep apnea. Patient was started on CPAP therapy, with auto Pap mode initially and then after CPAP titration he was supposed to be on CPAP of 15 cm. He did get CPAP equipment , and it is set at auto Pap mode. His usage remains very poor, he has used only for 9 nights in the last 3 month. Code(s): G47.33 - Obstructive sleep apnea (adult) (pediatric) Category: Medical Plan: AGAIN I HAD A LONG DISCUSSION. I TRIED TO EDUCATE HIM ABOUT THE IMPORTANCE OF USING THE CPAP. THE RISKS OF NOT USING CPAP WERE EXPLAINED TO HIM. I THINK HE IS JUST NOT UNDERSTANDING THE IMPORTANCE AND IS NOT VERY SERIOUS. I DID TELL HIM THAT HE MAY LOSE HIS CPAP MACHINE DUE TO NONCOMPLIANCE. I ALSO TOLD HIM THAT NEXT TIME HE GOES FOR HIS [facility] EXAM HE MAY NOT PASS. FINALLY HE SAY IS HE UNDERSTANDS AND HE IS GOING TO TRY HIS BEST TO PUT THE CPAP ON BEFORE HE GOES TO SLEEP. I THINK HE NEEDS CONTINUOUS EDUCATION AND PERSPIRATION. WILL SEE HIM AFTER 2 MONTHS AGAIN. (2) Asthma: Comment: CLINICALLY HE SEEMS TO HAVE A VERY MILD INTERMITTENT BRONCHIAL ASTHMA, . IS RELATIVELY STABLE AT THIS TIME Code(s): J45.909 - Unspecified asthma, uncomplicated Category: Medical Qualifiers: Asthma severity: mild Asthma persistence: intermittent Asthma complication type: uncomplicated Qualified Code(s): J45.20 - Mild intermittent asthma, uncomplicated Plan: USE ADVAIR HFA 115-21 2 PUFFS B.I.D. P.R.N. IF HE HAS ACTIVE SHORTNESS OF BREATH WITH WHEEZING. Coding Level of Care Code Est Pt Level 3 (65371) Diagnoses [place] (obstructive sleep apnea) G47.33 Mild intermittent asthma without complication J45.20 Asthma severity: mild Asthma persistence: intermittent Asthma complication type: uncomplicated
--- OUTSIDE RECORDS SUMMARY | 2025-01-19 18:39 | XMS_ITS | Clinical Summary ---
Author Organization [facility] Facility Address [address] [place] [id number] Care Team Providers Care Cocoa Milling Machine Operator Name Role Phone Husam Beatty Primary Care Provider [phone] Social History Tobacco Use Types Packs/Day Years [...] PCV) 023 Influenza Vaccine (#1) 2025 Insurance [facility] Medicaid [address] [place] [id number] [facility] Medicaid Care Teams Cocoa Milling Machine Operator Relationship Specialty Start Date End Date Husam Beatty PA [address] [place] [address], [address] [place] [address] PCP - General Physician Plastics Repairer 08/30/22
--- OUTSIDE RECORDS SUMMARY | 2025-01-19 18:39 | XMS_ITS | Clinical Summary ---
Demographics Address [address] [place] [address] Home Phone Work Phone Email Address Preferred Language en Marital Status Unknown Congregation Affiliation Unknown Race Other Race Ethnic Group Unknown Author Organization [employer] Address [address] [place] [address] Care Team Providers Care Cable Splicer Apprentice Name Role Phone Unavailable Primary Care Provider [...] COVID-19 Vaccine (1 - 2023-2 5 season) 2025 Influenza Vaccine (#1) 2025 DTaP/Tdap/Td Vaccines (2 [...]
--- OUTSIDE RECORDS SUMMARY | 2025-01-19 18:39 | XMS_ITS | Encounter Summary ---
Author Organization [employer] Address [address] [place] [address] [address] [place] [address] Care Team Providers Care Clutch Mechanic Name Role Phone Unavailable Primary Care Provider Unavailabl e Encounter Details Date Type Department Care Team (Latest Contact Info) Description 09/23/2018 Abstract [facility] CONVERSIONS Dental, Provider, DDS Social History [...]
== END 2025-01-19 16:25 | disposition home or self-care (01) ==
LOC: HO.HPS 15:57
PROVIDERS: PCP Physician Assistant; Visit Provider Internal Medicine
DX: G47.33 Obstructive sleep apnea (adult) (pediatric) (principal); J45.20 Mild intermittent asthma, uncomplicated
CPT/HCPCS: 99213

== ENCOUNTER → 2025-01-19 15:56 | Outpatient (BNVA) | payer OTHER, SELFPAY | PROVIDERS: PCP Physician Assistant; Visit Provider Internal Medicine | DX: G47.33 Obstructive sleep apnea (adult) (pediatric) (principal); Z99.89 Dependence on other enabling machines and devices; J45.20 Mild intermittent asthma, uncomplicated; E66.01 Morbid (severe) obesity due to excess calories | CPT/HCPCS: 99212 ==

== ENCOUNTER 2025-02-26 14:42 | Outpatient (AMB) | payer OTHER, SELFPAY ==
--- NOTE | 2025-02-26 14:52 | MHC.PC.OV ---
Vital Signs 02/26/25 14:53 Height 5 ft 8 in Weight 299 lb 4 oz BMI 45.5 BP 120/74 Blood Pressure Location Lt brachial Position Sitting Pulse 67 Pulse Source Pulse Oximeter Temp 97.3 F Temp Source Temporal Artery Scan Pulse Oximetry (%) 97 Oxygen Delivery Method Room Air Intake Visit Reasons: f/u weight check HTN/ CAD Intake Note: Patient is here to follow up on Weight check, HTN, CAD. Furniture Arranger Required: No Commodity Lead: Not Required per policy Accompanied by: Self / Same As Patient Allergies No Known Allergies (No Known Allergies*) Allergy (Verified 02/26/25 15:00) Medication List - Last Reconciled 02/26/25 by Husam Beatty PA-C albuterol sulfate 90 mcg/actuation 2 puffs inhalation Q4-6H PRN 30 days amlodipine 10 mg PO DAILY 90 days aspirin 81 mg PO DAILY 90 days atorvastatin 20 mg PO DAILY blood pressure kit-extra large As directed carvedilol 3.125 mg PO BID CPAP (CPAP Machine/Device) As directed dapagliflozin propanediol (Farxiga) 10 mg PO DAILY doxazosin 2 mg PO DAILY 90 days fluticasone propion-salmeterol 115-21 mcg/actuation (Advair HFA) 2 puffs inhalation BID PRN furosemide 40 mg PO DAILY ibuprofen 600 mg PO Q6H PRN loratadine 10 mg PO DAILY PRN losartan-hydrochlorothiazide 100-25 mg 1 tab PO DAILY 90 days omeprazole 40 mg PO DAILY 90 days tirzepatide (weight loss) (Zepbound) 5 mg (0.5 mL) subcut QWEEK 4 weeks Tobacco use date assessed: 02/26/25 Dental Screening Dental Screen Date: 12/03/24 HPI f/u weight check HTN/ CAD HPI Details Patient is a 54-year-old male here today for follow-up visit. ? Patient has a past medical history significant for HTN, CAD, obesity, GERD, .. Impaired glucose metabolism: . Has been intermittently using metformin. Continues to see a dietitian He is now seeing a dietitian .. Class 3 obesity: Has been able to lose weight since last office visit again has been working with a dietitian. Continues on GLP 1 which has helped him reduce his appetite . Reports he has been trying to go to the gym more often which has been helping him reduce his weight ? .. ? CAD:? Has been feeling well without any chest discomfort, shortness of breath on exertion. Recently underwent a coronary artery catheterization at [facility] with Dr. May and did not have any significant coronary artery disease.> Most recent lipid panel showing excellent control of his LDL ?Patient does report being hospitalized years ago for chest pain and was told he had coronary artery blockage. Thus he was placed on statin therapy and aspirin. .. GERD:? Use omeprazole on a daily basis with good effect. ? .. ? ARGENTINA: ?Has establish care with pulmonology, he has trouble being compliant with the use of his CPAP machine over 4 hours a night as the mask usually makes him feel a bit suffocated. [facility] Medical History Chronic combined systolic and diastolic CHF (congestive heart failure) H. 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 Cognitive needs: No Hearing needs: No Vision needs: No Questionnaire Thrive Questionnaire Date Thrive assessed: 12/03/24 I am a: Patient What is your living situation today?: I have a place to live, but I am worried about losing it in the future Within the past 12 months, did the food you bought not last and you didn't have the money to get more?: Often true Within the past 12 months, did you worry whether your food would run out before you got money to buy more?: Often true Do you have trouble paying for medicines?: Yes Do you have trouble getting transportation to medical appointments?: Yes Do you have trouble paying your heating and electricity bill?: Yes Do you have trouble taking care of your child, family member or friend?: No Do you have trouble with day-to-day activities such as bathing, preparing meals, shopping, managing finances, etc.?: Yes Are you currently unemployed and looking for a job?: I choose not to answer this question Are you interested in more education?: Yes Currently or been in a relationship where the following occur: I choose not to answer THRIVE Score: 5 MARGRET-7 AMB Questionnaire MARGRET-7 Date MARGRET - 7 assessed: 07/14/24 Source: Developed by Drs. Clint Aguilar, Ellie Arteaga, Daron Decker and colleagues, with an educational alfonso from [employer]. Review of Systems Const Denies headache(s) Eyes Denies loss of vision ENT Denies vertigo, Denies dizziness, Denies headache(s) and Denies sore throat Card Denies chest pain, Denies leg edema and Denies lightheadedness Resp Denies cough, Denies hemoptysis and Denies wheezing GI Denies abdominal pain, Denies melena, Denies constipation, Denies diarrhea and Denies vomiting Denies dysuria, Denies urinary frequency and Denies urinary urgency Musc Denies arthralgias, Denies joint swelling, Denies numbness and Denies tingling Neuro Denies Abnormal speech present, Denies behavioral changes, Denies vertigo, Denies dizziness, Denies headache(s), Denies loss of vision, Denies memory loss, Denies numbness and Denies tingling Psych Denies anxiety, Denies behavioral changes, Denies depression, Denies memory loss and Denies panic attacks Albert/Lymph Denies easy bleeding and Denies easy bruising Aller/Immun Denies wheezing Physical exam (Primary Care) Vital Signs: Last Vital Signs Temp 97.3 F 02/26/25 14:53 Pulse 67 02/26/25 14:53 BP 120/74 02/26/25 14:53 Pulse Ox 97 02/26/25 14:53 Oxygen Delivery Method Room Air 02/26/25 14:53 BMI result Body Mass Index 45.5 BMI Assessment/Plan discussion: High BMI High, discussed plan: lifestyle, weight reduction, dietary and physical activity Tobacco/Smoking Status: Tobacco use Status Tobacco use date assessed 02/26/25 02/26/25 14:59 Patient Tobacco Use Status Former Tobacco user 02/26/25 14:59 e-Cigarette/Vaping Use Never Used 02/26/25 14:59 Thrive Assessment: Date of Thrive Assessment Date Thrive assessed 12/03/24 02/26/25 14:59 Currently or been in a relationship where the following occur: I choose not to answer Const Other: OBESE General: healthy appearing, no acute distress, alert and awake Nutritional Appearance: well nourished Orientation/consciousness: oriented to person, oriented to place and oriented to time HENMT Ears: TM's normal bilaterally General nose exam: Normal nasal mucous membranes and turbinates present Eyes Conjunctivae: conjunctivae normal Sclerae: sclerae normal Pupils: Equal, round and reactive pupils present Neck Neck: Yes no lymphadenopathy and Yes no JVD Thyroid: Thyroid normal Carotids: no bruits Resp Effort & Inspection: normal respiratory effort and not tachypneic Auscultation: no crackles, no rales, no rhonchi and no wheezes Cardio Rate: regular rate Rhythm: regular rhythm Heart sounds: no murmurs and normal S1 and S2 GI Palpation (GI): Soft to palpation, nontender, no hepatomegaly and no splenomegaly Auscultation: normal bowel sounds Skin General skin exam: no rashes or lesions noted and dry skin Neuro General: oriented to person, oriented to place and oriented to time Cranial nerves: Yes Equal, round and reactive pupils present Speech: No Abnormal speech present Gait exam (Neuro): Normal gait present Motor exam (neuro): no tremor noted Extrem Right upper extremity: full ROM Left upper extremity: full ROM Right lower extremity: full ROM; no edema Left lower extremity: full ROM; no edema Psych Mental Status: mental status grossly normal Speech and movement: Normal speech and movement present Affect: normal affect Attitude: cooperative Thought process: Normal thought process present Results AMB Hemoglobin A1c AMB Hemoglobin A1c 5.5 % Last Edit by CHARLIE Alcala on 02/26/25 15:04 Coding Level of Care Code Est Pt Level 4 (17999) Diagnoses [place] (obstructive sleep apnea) G47.33 Systolic congestive heart failure, NYHA class 3, unspecified congestive heart failure chronicity I50.20 Congestive heart failure chronicity: unspecified Congestive heart failure type: systolic Impaired glucose metabolism R73.09 Essential hypertension I10 Hypertension type: essential hypertension Pure hypercholesterolemia E78.00 Hyperlipidemia type: pure hypercholesterolemia Class 3 obesity E66.813 Assessment & Plan Assessment & Plan (1) [place] (obstructive sleep apnea): Comment: Sleep study in 2020 results were consistent with very severe obstructive sleep apnea. Patient was started on CPAP therapy, with auto Pap mode initially and then after CPAP titration he was supposed to be on CPAP of 15 cm. He did get CPAP equipment , and it is set at auto Pap mode. His usage remains very poor, he has used only for 9 nights in the last 3 month. Code(s): G47.33 - Obstructive sleep apnea (adult) (pediatric) Category: Medical Plan: Patient has a CPAP machine and is followed by [facility]. He reports using a CPAP machine for few hours. He does know he needs to use it more regularly. (2) CHF (congestive heart failure), NYHA class III: Code(s): I50.9 - Heart failure, unspecified Category: Medical Qualifiers: Congestive heart failure chronicity: unspecified Congestive heart failure type: systolic Qualified Code(s): I50.20 - Unspecified systolic (congestive) heart failure Plan: Now followed by [facility]. Continues on carvedilol, furosemide, Farxiga and losartan. Recently started a GLP 1 to help reduce CV risk as well. Has followed up with Cardiology at [facility] in did get a coronary artery catheterization which did not show any significant coronary artery disease. He is due for repeat echocardiogram (3) Impaired glucose metabolism: Code(s): R73.09 - Other abnormal glucose Category: Medical Plan: Most recent A1c stable. Has only using metformin on an as needed basis. Will hold metformin for now will continue working on lifestyle and dietary modifications . (4) HTN (hypertension): Code(s): I10 - Essential (primary) hypertension Category: Medical Qualifiers: Hypertension type: essential hypertension Qualified Code(s): I10 - Essential (primary) hypertension Plan: Patient's blood pressure acceptable today in office. He reports he has been compliant with though his antihypertensive medication. Will continue 40 mg of furosemide/. Goal blood pressure to be below 140/90 (5) HLD (hyperlipidemia): Code(s): E78.5 - Hyperlipidemia, unspecified Category: Medical Qualifiers: Hyperlipidemia type: pure hypercholesterolemia Qualified Code(s): E78.00 - Pure hypercholesterolemia, unspecified Plan: Most recent lipid panel showing excellent control of his total cholesterol and LDL. Will continue his current dose of atorvastatin 20 mg. Goal LDL to be optimally below 70. (6) Class 3 obesity: Code(s): E66.813 - Obesity, class 3 Category: Medical Plan: Patient continues on Zepbound 5 mg weekly and has noted weight loss. He has been going to the gym more often and has a better relationship with food as he has been working with a dietitian as well. He would like to continue on Zepbound 5 mg and uptitrate when he is ready. He has a goal weight at this time of 250 lb Orders: Orders AMB Hemoglobin A1c Today R73.09 - Other abnormal glucose
[2025-02-26 14:53] VITALS: BP 120/74; PULSE 67; TEMP 36.3; O2SAT 97; BMI 45.5
--- OUTSIDE RECORDS SUMMARY | 2025-02-26 18:37 | XMS_ITS | Clinical Summary ---
Demographics Address [address] [place] [address] Home Phone Work Phone Email Address Preferred Language en Marital Status Unknown Yarsani Affiliation Unknown Race Other Race Ethnic Group Unknown Author Organization [employer] Address [address] [facility] [address] [place] [address] Care Team Providers Care Radio Presenter Name Role Phone Unavailable Primary Care Provider [...]
--- OUTSIDE RECORDS SUMMARY | 2025-02-26 18:37 | XMS_ITS | Encounter Summary ---
Author Organization [employer] Address [address] [facility] [address] [place] [address] Care Team Providers Care Hr Business Partner Name Role Phone Unavailable Primary Care Provider Unavailabl e Encounter Details Date Type Department Care Team (Latest Contact Info) Description 09/23/2018 Abstract [facility] CONVERSIONS Dental, Provider, DDS Social History Tobacco [...]
== END 2025-02-26 15:20 | disposition home or self-care (01) ==
LOC: HO.HMCH 14:43
PROVIDERS: PCP Physician Assistant; Visit Provider Physician Assistant
DX: G47.33 Obstructive sleep apnea (adult) (pediatric) (principal); I50.20 Unspecified systolic (congestive) heart failure; E66.813 Obesity, class 3; Z68.42 Body mass index [BMI] 45.0-49.9, adult; R73.09 Other abnormal glucose; I10 Essential (primary) hypertension; E78.00 Pure hypercholesterolemia, unspecified

== ENCOUNTER → 2025-02-26 14:42 | Outpatient (BNVA) | payer OTHER, SELFPAY | PROVIDERS: PCP Physician Assistant; Visit Provider Physician Assistant | DX: K21.9 Gastro-esophageal reflux disease without esophagitis (principal); I25.10 Atherosclerotic heart disease of native coronary artery without angina pectoris; E66.813 Obesity, class 3; G47.33 Obstructive sleep apnea (adult) (pediatric); I11.0 Hypertensive heart disease with heart failure; I50.20 Unspecified systolic (congestive) heart failure; R73.09 Other abnormal glucose; E78.00 Pure hypercholesterolemia, unspecified; Z99.89 Dependence on other enabling machines and devices; Z68.42 Body mass index [BMI] 45.0-49.9, adult | CPT/HCPCS: 83036; 99212 ==

== ENCOUNTER 2025-03-02 14:06 | Outpatient (AMB) | payer OTHER, SELFPAY ==
[2025-03-02 14:14] VITALS: BMI 44.4
--- NOTE | 2025-03-02 14:14 | A.OFFVIS_ITS ---
VS Expanded 03/02/25 14:14 03/05/25 08:38 Height 5 ft 8 in 5 ft 8 in Weight 292 lb 5.327 oz BMI 44.4 Intake Visit Reasons: obesity Allergies No Known Allergies (No Known Allergies*) Allergy (Verified 02/26/25 15:00) Nutrition Presentation Details: Pt presents for MNT f/u for obesity Pt reports working on increasing fiber and working on reducing high fat foods. physical activity: 3-4 x/wk 3-4 hour/d, concerned about possible reduction in physical activity during winter Pt reports trying smoothies high fiber and low in fat (steve seeds, almond milk and fruit and working on following healthy plate method 4-5 x/wk beverages: water 64 -72 oz/d FCY-Yxrnbso-Sr.Jeor Equation Height: 5 ft 8 in [facility] Medical History Chronic combined systolic and diastolic CHF (congestive heart failure) H. 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 Cognitive needs: No Hearing needs: No Vision needs: No Assessment & Plan Assessment & Plan (1) Class 3 obesity: Code(s): E66.813 - Obesity, class 3 Category: Medical Plan: Wt: 135 Kg ( 08/05 ), 134 (09/05), 142 (11/05), 136 kg (01/05), 132 kg (03/07) Est kcal needs as per MSJ: 2600 (40% carb, 30% protein/fat) Est fluid needs as per 25-30 ml/d: 4100 Est prot per day as per 1 g/kg bw: 130 Recommend fiber intake : 8-10 g per day and gradually increase to 25-28 g per day for women and 35-38 g for men or as tolerated Recommend sodium intake per day : less than 2300 mg Educated patient on: ( R = reviewed V = verbalizes understanding N/R = needs review N/A = not applicable * Food sources of carbohydrate, adequate serving sizes and its role in various health conditions: R * Differences between complex carbohydrates a simple carbohydrates, role of fiber in diet: R * Lean protein sources of foods: R * Differences between types of fats and role in diet (mono on saturated fat fatty acids, saturated fatty acids, trans fats): R * Food sources of sodium in salt and healthy modifications for heart health in kidney health: R * Vitamins and minerals: R * Healthy plate method concept: R * Physical activity: Benefits a precaution: R Patient Instructions: Continue working on cutting down on fat in the diet (choose grilled chicken, baked potatoes, reduce on amount of sauces, cheese, butter, oils added to the food when cooking, reduce on highly processed meats) Coding Level of Care Code Nutr Indiv Subseq (99535) Diagnoses Class 3 obesity E66.813 Time Spent (min) 30
== END 2025-03-02 14:37 | disposition home or self-care (01) ==
LOC: HO.ENCR 14:07
PROVIDERS: PCP Physician Assistant; Visit Provider Dietitian, Registered
DX: E66.813 Obesity, class 3 (principal)

== ENCOUNTER → 2025-03-02 14:06 | Outpatient (BNVA) | payer OTHER, SELFPAY | PROVIDERS: PCP Physician Assistant; Visit Provider Dietitian, Registered | DX: E66.813 Obesity, class 3 (principal); Z68.41 Body mass index [BMI] 40.0-44.9, adult; Z71.3 Dietary counseling and surveillance | CPT/HCPCS: 97803 ==

== ENCOUNTER 2025-03-18 15:30 | Outpatient (AMB) | payer OTHER, SELFPAY ==
[2025-03-18 15:34] VITALS: BP 140/80; PULSE 84; O2SAT 97; BMI 45.6
--- NOTE | 2025-03-18 15:34 | A.OFFVIS_ITS ---
Vital Signs 03/18/25 15:34 Height 5 ft 8 in Weight 299 lb 13.259 oz BMI 45.6 BP 140/80 H Blood Pressure Location Lt brachial Position Sitting Pulse 84 Pulse Source Pulse Oximeter Pulse Oximetry (%) 97 Oxygen Delivery Method Room Air Intake Visit Reasons: Asthma Intake Note: * pt is here for follow up and states he is struggling to use the machine, but breathing is good, no issues using inhalers as needed. Industrial Organizational Psychologist Required: No Industrial Organizational Psychologist Services: Industrial Organizational Psychologist Offered & Declined Allergies No Known Allergies (No Known Allergies*) Allergy (Verified 03/18/25 15:51) Medication List - Last Reconciled 03/18/25 by Julianna Villanueva MD albuterol sulfate 90 mcg/actuation 2 puffs inhalation Q4-6H PRN 30 days amlodipine 10 mg PO DAILY 90 days aspirin 81 mg PO DAILY 90 days atorvastatin 20 mg PO DAILY blood pressure kit-extra large As directed carvedilol 3.125 mg PO BID CPAP (CPAP Machine/Device) As directed dapagliflozin propanediol (Farxiga) 10 mg PO DAILY doxazosin 2 mg PO DAILY 90 days fluticasone propion-salmeterol 115-21 mcg/actuation (Advair HFA) 2 puffs inhalation BID PRN furosemide 40 mg PO DAILY ibuprofen 600 mg PO Q6H PRN loratadine 10 mg PO DAILY PRN losartan-hydrochlorothiazide 100-25 mg 1 tab PO DAILY 90 days omeprazole 40 mg PO DAILY 90 days tirzepatide (weight loss) (Zepbound) 5 mg (0.5 mL) subcut QWEEK 4 weeks Do you need a note to return to daycare/school/sports/work: No HPI HPI Asthma: Details: THIS 54 YEARS OLD GENTLEMAN WITH MORBID OBESITY WHO WORKS IN [employer], HAS THE OBSTRUCTIVE SLEEP APNEA WELL BRONCHIAL ASTHMA. FAR BRONCHIAL ASTHMA IS CONCERNED IT REMAINS WELL CONTROLLED AND HE IS ACTUALLY USING ADVAIR HFA 115-212 PUFFS ONLY ONCE A DAY. 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 HIS WEIGHT HAS NOT CHANGED MUCH BUT HE IS RECENTLY STARTED ON TIRZEPATIDE INJECTIONS HE HAS NOT USE THE CPAP , SAYS THAT HE TAKES A DIURETIC MEDICINE IN THE EVENING AND A WAKES UP A FEW TIMES DURING THE NIGHT SO HE CAN NOT KEEP THE MASK ON. HE DENIES DAYTIME SLEEPINESS. [facility] Medical History Chronic combined systolic and diastolic CHF (congestive heart failure) H. 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 Cognitive needs: No Hearing needs: No Vision needs: No Review of Systems Const All systems reviewed & are unremarkable except as noted in HPI and below Eyes Reports no additional complaints ENT Reports no additional complaints Card Denies chest pain, Denies irregular heart rhythm, Denies leg edema and Denies lightheadedness Resp Reports as per HPI GI Reports no additional complaints and Reports heartburn (Treated with omeprazole p.r.n.) Reports nocturia Musc Reports no additional complaints Skin/Breast Reports system reviewed and no additional complaints, except as documented Neuro Reports no additional complaints Psych Reports no additional complaints Physical Exam Vital Signs: Last Vital Signs Pulse 84 03/18/25 15:34 BP 140/80 H 03/18/25 15:34 Pulse Ox 97 03/18/25 15:34 Oxygen Delivery Method Room Air 03/18/25 15:34 BMI result Body Mass Index 45.6 Const General: comfortable, no acute distress, alert and awake; No healthy appearing (Except for being overweight) Orientation/consciousness: patient oriented x3 HEENT Head: Yes normal to inspection General nose exam: No nasal polyps present and No nasal discharge present Face and sinus: Yes sinuses nontender Mouth: oropharynx abnormals (Narrow and crowded, Mallampati class 3) Throat: Yes posterior oropharynx normal Eyes General: appearance normal, both eyes and all related structures Neck Other: Neck circumference 18 in Neck: Yes normal visual inspection, Yes no lymphadenopathy, Yes trachea midline and Yes no JVD Thyroid: Thyroid normal Chest Chest palpation & inspection: normal inspection of the chest, normal palpation of entire chest wall and no tenderness Resp Effort & Inspection: normal respiratory effort Auscultation: clear to auscultation bilaterally, no crackles and no wheezes Cardio Palpation: normal PMI Rate: regular rate Rhythm: regular rhythm Heart sounds: no gallops and no murmurs Peripheral pulses: Peripheral pulses 2+ throughout GI Palpation (GI): Soft to palpation, nontender, No hepatosplenomegaly present and no masses Auscultation: normal bowel sounds Back/Spine/Pelvis Thoracic/Lumbar Spine: thoracic and lumbar spine normal to inspection Skin General skin exam: no rashes or lesions noted Neuro General: patient oriented x3 and no focal motor deficits Cranial nerves: Yes CN's II-XII intact bilaterally Extrem General: Yes normal to inspection, Yes no clubbing, cyanosis or edema and Yes no calf tenderness Psych Appearance: grossly normal and well kempt Speech and movement: Normal speech and movement present Assessment & Plan Assessment & Plan (1) Asthma: Comment: CLINICALLY HE SEEMS TO HAVE A VERY MILD INTERMITTENT BRONCHIAL ASTHMA, . IS RELATIVELY STABLE AT THIS TIME Code(s): J45.909 - Unspecified asthma, uncomplicated Category: Medical Qualifiers: Asthma severity: mild Asthma persistence: intermittent Asthma complication type: uncomplicated Qualified Code(s): J45.20 - Mild intermittent asthma, uncomplicated Plan: USE ADVAIR HFA 115-21 2 PUFFS IN THE MORNING AND 2 IN THE EVENING. HOWEVER IF HE DOES NOT HAVE ANY ACTIVE WHEEZING OR SHORTNESS OF BREATH HE MAY USE IT ONLY ONCE A DAY IN THE MORNING. ALBUTEROL HFA 2 PUFFS Q 4-6 HOURS P.R.N. WHICH HE HARDLY NEEDS IT. (2) [place] (obstructive sleep apnea): Comment: Sleep study in 2020 results were consistent with very severe obstructive sleep apnea. Patient was started on CPAP therapy, with auto Pap mode initially and then after CPAP titration he was supposed to be on CPAP of 15 cm. He did get CPAP equipment , and it is set at auto Pap mode. His usage is still very poor. He claims that he is sleeping okay without the CPAP machine. Code(s): G47.33 - Obstructive sleep apnea (adult) (pediatric) Category: Medical Plan: I have again educated him about the obesity , obstructive sleep apnea and importance of using the CPAP especially when he has cardiac disease. I also encouraged him that he may use CPAP even when he is awake and watching TV sitting in the recliner, so that he can get used to the mask. (3) Morbid obesity with BMI of 40.0-44.9, adult: Comment: He remains morbidly obese current BMI 45.6 Code(s): E66.01 - Morbid (severe) obesity due to excess calories; Z68.41 - Body mass index [BMI] 40.0-44.9, adult Category: Medical Plan: Once again stressed about watching his diet Follow the dietitian's instructions. Starting of tirzepatide injections may help. Coding Level of Care Code Est Pt Level 3 (19948) Diagnoses Mild intermittent asthma without complication J45.20 Asthma severity: mild Asthma persistence: intermittent Asthma complication type: uncomplicated [place] (obstructive sleep apnea) G47.33 Morbid obesity with BMI of 40.0-44.9, adult E66.01; Z68.41
--- OUTSIDE RECORDS SUMMARY | 2025-03-18 18:23 | XMS_ITS | Clinical Summary ---
Demographics Address [address] [facility] [facility] [address] [place] [address] Home Phone Work Phone Email Address Preferred Language en Marital Status Unknown Jewish Affiliation Unknown Race Other Race Ethnic Group Unknown Author Organization [employer] Address [address] [facility] [address] [place] [address] Care Team Providers Care Respite Worker Name Role Phone Unavailable Primary Care [...]
--- OUTSIDE RECORDS SUMMARY | 2025-03-18 18:23 | XMS_ITS | Clinical Summary ---
Author Organization [facility] Facility Address [address] [place] [id number] Care Team Providers Care Hot Room Attendant Name Role Phone Husam Beatty Primary Care Provider [phone] Social History Tobacco Use Types Packs/Day Years [...] PCV) 023 Influenza Vaccine (#1) 2025 Insurance [facility] Medicaid [address] [place] [id number] [facility] Medicaid Care Teams Hot Room Attendant Relationship Specialty Start Date End Date Husam Beatty PA [address] [place] [address], [address] [place] [address] PCP - General Physician Cam Specialist 08/30/22
--- OUTSIDE RECORDS SUMMARY | 2025-03-18 18:23 | XMS_ITS | Encounter Summary ---
Author Organization [employer] Address [address] [place] [address] [address] [place] [address] Care Team Providers Care Bobbin Coil Winder Name Role Phone Unavailable Primary Care Provider Unavailabl e Encounter Details Date Type Department Care Team (Latest Contact Info) Description 09/23/2018 Abstract [facility] CONVERSIONS Dental, Provider, DDS Social [...]
== END 2025-03-18 15:52 | disposition home or self-care (01) ==
LOC: HO.HPS 15:31
PROVIDERS: PCP Physician Assistant; Visit Provider Internal Medicine
DX: J45.20 Mild intermittent asthma, uncomplicated (principal); G47.33 Obstructive sleep apnea (adult) (pediatric); E66.01 Morbid (severe) obesity due to excess calories; Z68.41 Body mass index [BMI] 40.0-44.9, adult
CPT/HCPCS: 99213

== ENCOUNTER → 2025-03-18 15:30 | Outpatient (BNVA) | payer OTHER, SELFPAY | PROVIDERS: PCP Physician Assistant; Visit Provider Internal Medicine | DX: J45.20 Mild intermittent asthma, uncomplicated (principal); G47.33 Obstructive sleep apnea (adult) (pediatric); Z99.89 Dependence on other enabling machines and devices; E66.01 Morbid (severe) obesity due to excess calories; Z68.41 Body mass index [BMI] 40.0-44.9, adult | CPT/HCPCS: 99212 ==

== ENCOUNTER 2025-04-15 11:37 | Outpatient (AMB) | payer OTHER, SELFPAY ==
--- NOTE | 2025-04-15 11:55 | A.OFFPC_ITS ---
Vital Signs 04/15/25 11:56 Height 5 ft 8 in Weight 295 lb 8 oz BMI 44.9 BP 130/100 H Blood Pressure Location Lt brachial Position Sitting Pulse 80 Pulse Source Pulse Oximeter Temp 97.3 F Temp Source Temporal Artery Scan Pulse Oximetry (%) 97 Oxygen Delivery Method Room Air Intake Visit Reasons: ingrown toenail for over a month Intake Note: Patient is here to follow up on left foot Ingrown toenail ongoing for over a month. College Sports Coach Required: No Room Service Food Service Attendant: Not Required per policy Accompanied by: Self / Same As Patient Allergies No Known Allergies (No Known Allergies*) Allergy (Verified 04/15/25 11:56) Tobacco use date assessed: 04/15/25 Dental Screening Dental Screen Date: 12/03/24 HPI HPI Comments History of Present Illness Details History of Present Illness - The patient is a 54-year-old individua l presenting with a painful toe that has been an issue for over a month. - The problem began after the patient cu t the toenail improperly and attempted to remove a piece with tweezers, which led to an infection. - The patient describes the skin as grow ing over the nail, causing it to become buried and very painful. - Two weeks ago, the patient sought evangelina karthikeyan at an urgent care facility and was prescribed antibiotics. - A referral to podiatry was supposed to be arranged, but the patient never received a call. - The pain is exacerbated by work activi ties. - Past medical history is notable for nakul rderline diabetes. - The patient takes Farxiga, which was p rescribed for the heart. - The patient denies any known drug nikolay rgies, including to penicillin. 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 Results [facility] Medical History Chronic combined systolic and diastolic CHF (congestive heart failure) H. 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 Cognitive needs: No Hearing needs: No Vision needs: No Questionnaire Thrive Questionnaire Date Thrive assessed: 12/03/24 I am a: Patient What is your living situation today?: I have a place to live, but I am worried about losing it in the future Within the past 12 months, did the food you bought not last and you didn't have the money to get more?: Often true Within the past 12 months, did you worry whether your food would run out before you got money to buy more?: Often true Do you have trouble paying for medicines?: Yes Do you have trouble getting transportation to medical appointments?: Yes Do you have trouble paying your heating and electricity bill?: Yes Do you have trouble taking care of your child, family member or friend?: No Do you have trouble with day-to-day activities such as bathing, preparing meals, shopping, managing finances, etc.?: Yes Are you currently unemployed and looking for a job?: I choose not to answer this question Are you interested in more education?: Yes Currently or been in a relationship where the following occur: I choose not to answer THRIVE Score: 5 MARGRET-7 AMB Questionnaire MARGRET-7 Date MARGRET - 7 assessed: 07/14/24 Source: Developed by Drs. Clint Aguilar, Ellie Arteaga, Daron Decker and colleagues, with an educational alfonso from [employer]. Review of Systems Narrative Review of Systems - Integumentary/Extremities: Reports a painful, infected toe for over a month with skin growing over the nail. - Allergic/Immunologic: Denies any known drug allergies. - Endocrine: Reports being borderline diabetic. Physical exam (Primary Care) Vital Signs: Last Vital Signs Temp 97.3 F 04/15/25 11:56 Pulse 80 04/15/25 11:56 BP 130/100 H 04/15/25 11:56 Pulse Ox 97 04/15/25 11:56 Oxygen Delivery Method Room Air 04/15/25 11:56 BMI result Body Mass Index 44.9 Tobacco/Smoking Status: Tobacco use Status Tobacco use date assessed 04/15/25 04/15/25 11:57 Patient Tobacco Use Status Former Tobacco user 04/15/25 11:57 e-Cigarette/Vaping Use Never Used 04/15/25 11:57 Thrive Assessment: Date of Thrive Assessment Date Thrive assessed 12/03/24 04/15/25 11:57 Currently or been in a relationship where the following occur: I choose not to answer Narrative Physical Exam General: Cooperative and healthy appearing Nutritional Appearance: Well nourished Orientation/consciousness: Patient oriented x3 Limitations: No limitations Head: Normal to inspection General: Appearance normal, both eyes and all related structures Neck: Normal visual inspection Chest: Normal palpation of entire chest wall Respiratory: Normal respiratory effort Neurology: Patient oriented x3 Coding Level of Care Code Est Pt Level 4 (57788) Complex visit Add On G2211 Diagnoses Paronychia of great toe L03.039 Assessment & Plan Assessment & Plan (1) Paronychia of great toe: Code(s): L03.039 - Cellulitis of unspecified toe Plan Plan - An urgent referral will be placed for the patient to see a group exercise class instructor at the [facility] facility in [place] for evaluation of an infected ingrown toenail. - Prescriptions will be sent for penicillin to treat the infection, a once-daily medication for pain, and an anti-inflammatory medication. - The patient will continue taking Farxiga as prescribed for a heart condition a nd borderline diabetes. Discussion Notes I discussed with the patient the need for evaluation by a specialist for the painful and infected toe. I will place an urgent referral to a group exercise class instructor in [facility], which is a more convenient location for the patient. I also explained that I will prescribe a new course of antibiotics (penicillin), along with medication for pain and inflammation. The patient confirmed no known allergies to medications, including penicillin. Patient Instructions - You will be given a prescription for an antibiotic, a pain reliever, and an anti-inflammatory medication. Please take them as directed. - Our office will send an urgent referral to a foot doctor (group exercise class instructor). - You should expect a call from the group exercise class instructor's office to schedule an appointment soon. Orders: Referrals Podiatry Referral L03.039 - Cellulitis of unspecified toe Medications: New meloxicam 15 mg PO DAILY 14 tabs 0RF cephalexin 500 mg PO BID 14 caps 0RF
[2025-04-15 11:56] VITALS: BP 130/100; PULSE 80; TEMP 36.3; O2SAT 97; BMI 44.9
--- OUTSIDE RECORDS SUMMARY | 2025-04-15 14:07 | XMS_ITS | Clinical Summary ---
Demographics Address [address] [facility] [facility] [address] [place] [address] Home Phone Work Phone Email Address Preferred Language en Marital Status Unknown Tenriism Affiliation Unknown Race Other Race Ethnic Group Unknown Author Organization [employer] Address [address] [facility] [address] [place] [address] Care Team Providers Care Fountain Worker Name Role Phone Unavailable Primary Care [...] of 2) 2022 COVID-19 Vaccine (1 - 2024-2 6 season) 2025 Influenza Vaccine (#1) 2025 DTaP/Tdap/Td [...]
--- OUTSIDE RECORDS SUMMARY | 2025-04-15 14:07 | XMS_ITS | Encounter Summary ---
Author Organization [employer] Address [address] [facility] [address] [place] [address] Care Team Providers Care Magnetic Doctor Name Role Phone Unavailable Primary Care Provider Unavailabl e Encounter Details Date Type Department Care Team (Latest Contact Info) Description 09/23/2018 Abstract [facility] CONVERSIONS Dental, Provider, DDS Social History Tobacco [...]
== END 2025-04-15 12:18 | disposition home or self-care (01) ==
LOC: HO.HMCH 11:38
PROVIDERS: Visit Provider Internal Medicine
DX: L03.039 Cellulitis of unspecified toe (principal)

== ENCOUNTER → 2025-04-15 11:37 | Outpatient (BNVA) | payer OTHER, SELFPAY | PROVIDERS: Visit Provider Internal Medicine | DX: L03.032 Cellulitis of left toe (principal); R73.03 Prediabetes | CPT/HCPCS: 99212 ==

== ENCOUNTER 2025-04-22 09:01 | Outpatient (AMB) | payer OTHER, SELFPAY ==
--- NOTE | 2025-04-22 09:19 | AM.OFFWIN_ITS ---
Intake Vital Signs 04/22/25 09:20 Height 5 ft 8 in Weight 300 lb BMI 45.6 BP 142/84 H Blood Pressure Location Lt brachial Position Sitting Pulse 84 Pulse Source Pulse Oximeter Temp 98.4 F Temp Source Oral Pulse Oximetry (%) 97 Oxygen Delivery Method Room Air Intake Visit Reasons: EP- Ingrown Toenail Intake Note: EP has Ingrown Toenail (left big toe) for around a month. Patient Tobacco Use Status: Former Tobacco user Allergies No Known Allergies (No Known Allergies*) Allergy (Verified 04/22/25 09:27) Do you need a note to return to daycare/school/sports/work: No HPI HPI Comments History of Present Illness Details History of Present Illness - The patient is a 54 year old male pres enting for evaluation of an ingrown toenail. - He has been experiencing an ingrown to enail for over a month, which began around the start of March, and reports associated swelling, tenderness, and constant drainage of blood. - He was previously seen on 04/15 at his PCP office and was prescribed Keflex, which he has not yet completed. - The patient has made multiple attempts to seek care, including a visit to an emergency room, his PCP referred him to podiatry without a follow-up call, and his primary care physician's office which directed him to this facility. Review of Systems - Integumentary: Reports a swollen, tend er ingrown toenail with constant sanguineous drainage for over one month. All systems reviewed and are unremarkable except as noted in HPI Physical Exam General: Cooperative, healthy appearing, comfortable, no acute distress and well developed Orientation: Patient oriented x3 Limitations: No limitations Head: Normal to inspection Ears: Hearing grossly normal bilaterally Nose: Normal External nose present Face and sinus: Normal facial exam Eyes: Appearance normal, both eyes and all related structures Neck: Normal visual inspection and Yes full ROM Respiratory: Normal respiratory effort and able to speak in complete sentences. Skin: No rashes or lesions noted Neuro: Patient oriented x3 Extremities: Normal to inspection, left great toe lateral side with crusted blood and serosanginous fluid draining. [facility] Medical History (Updated 04/22/25 @ 09:49 by Paola Church PA-C) Paronychia of great toe, left Chronic combined systolic and diastolic CHF (congestive heart failure) H. 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 Cognitive needs: No Hearing needs: No Vision needs: No Review of Systems Const All systems reviewed & are unremarkable except as noted in HPI and below Physical Exam Vital Signs: Last Vital Signs Temp 98.4 F 04/22/25 09:20 Pulse 84 04/22/25 09:20 BP 142/84 H 04/22/25 09:20 Pulse Ox 97 04/22/25 09:20 Oxygen Delivery Method Room Air 04/22/25 09:20 BMI result Body Mass Index 45.6 Assessment & Plan Assessment & Plan (1) Ingrown toenail with infection: Code(s): L60.0 - Ingrowing nail Plan: Plan Patient was informed and verbally consented to the use of an ambient scribe for clinic note documentation during this visit. - The ingrown toenail is considered a podiatric issue, and procedural intervention is deferred as it falls outside the scope of this provider's specialty. - A referral to the in-house podiatry service will be sent for definitive care. - An appointment with podiatry is scheduled for today at 10:45 AM, and the patient is instructed to return at 10:30 AM for check-in. Orders: Referrals Podiatry Referral L60.0 - Ingrowing nail Coding Level of Care Code Est Pt Level 3 (80879) Diagnoses Ingrown toenail with infection L60.0
[2025-04-22 09:20] VITALS: BP 142/84; PULSE 84; TEMP 36.9; O2SAT 97; BMI 45.6
== END 2025-04-22 10:19 | disposition home or self-care (01) ==
PROVIDERS: PCP Internal Medicine; Visit Provider Physician Assistant
DX: L60.0 Ingrowing nail (principal)

== ENCOUNTER → 2025-04-22 09:01 | Outpatient (BNVA) | payer OTHER, SELFPAY | PROVIDERS: PCP Internal Medicine; Visit Provider Physician Assistant | DX: L60.0 Ingrowing nail (principal); L92.8 Other granulomatous disorders of the skin and subcutaneous tissue; Z87.891 Personal history of nicotine dependence | CPT/HCPCS: 11730; 17250; 99202; 99212; J2003 ==

== ENCOUNTER 2025-04-22 10:27 | Outpatient (AMB) | payer OTHER, SELFPAY ==
[2025-04-22 10:32] VITALS: BMI 45.6
--- NOTE | 2025-04-22 10:32 | MHC.OFFVIS ---
Vital Signs 04/22/25 10:32 Height 5 ft 8 in Weight 300 lb BMI 45.6 Intake Visit Reasons: Left Infected Ingrown toenail Intake Note: Darwin is a 54 year old male who presents today as a new patient for a left infected ingrown toenail. Patient states ingrown has been going on since february, and the infection started mid-march. He reports he had a previous ingrown in his right about 20 years ago. He was also seen at an urgent care and was given antibiotics, no other treatments done. Allergies No Known Allergies (No Known Allergies*) Allergy (Verified 04/22/25 10:52) HPI HPI Left Infected Ingrown toenail: Details: 54 y/o male past medical history of CHF, asthma, [place], CAD s/p cardiac catherization, HTN, HLD, GERD, presents for left ingrown toe nail. He notes a chronic history of ingrown nails, with a procedure on his right foot in the past. However, he noted over the past 1 month his left big toenail infection had severely worsened. He had trialed oral antibiotics (Cephalexin) which did not help. He then started a 2nd antibiotic recently which he states helped relieve some of his symptoms however he still notes drainage and pain and swelling. [facility] Medical History (Updated 04/22/25 @ 09:49 by Paola Chruch PA-C) Paronychia of great toe, left Chronic combined systolic and diastolic CHF (congestive heart failure) H. 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 Medial border granuloma 1.5 x 1.5 cm with active sanguinous drainage. Neuro: Protective sensation grossly intact to bilateral lower extremities. MSK: Mild tenderness on palpation of the medial left hallux Office Procedures AMB Debridement/Avulsion Podia Details: Procedure: Partial Nail Avulsion medial border Indication: Left Hallux Ingrown toenail Anesthesia: Digital block with 10 cc 1 % lidocaine (without epinephrine) Description: The digit was prepped using betadine. A freer elevator was used to free the medial border of the nail plate. A nail splitter was used to cut approximately 10-15% of the nail. The offending nail was removed, and a curette was used to inspect for any loose spicules. The wound was irrigated with hydrogen peroxide. The wound was packed with bacitracin-gauze strip, 4x4 gauze, and coban. Tolerance: Patient tolerated procedure well, no immediate complications. Procedure: cauterization of granuloma Indication: Left Hallux Ingrown toenail with soft tissue mass granuloma Anesthesia: Digital block with 10 cc 1 % lidocaine (without epinephrine) Description: A nail splitter was used to resect the medial border granuloma. It was then cauterized at its root with silver nitrate. It was then irrigated with hydrogen peroxide. The wound was packed with bacitracin-gauze strip, 4x4 gauze, and coban. Tolerance: Patient tolerated procedure well, no immediate complications. 79935 Partial/Total nail avulsion (1 nail) 89078 - Chemical Cauterization of Granulation Tissue Procedure code (CPT) selection complete Office Meds lidocaine HCl 10 mg/mL (1 %) injection solution Performing Provider: Harlan Merritt DPM Performing Location: [facility] Administered by: Harlan Merritt DPM on 04/22/25 12:35 Dose Route Admin Location Dispensed Lot Number Expiration Date [facility] Certified Ski Patroller 10 mL subcut 10 mL [id number] Total Dispensed Waste 10 mL 0 % povidone-iodine 10 % topical swab Performing Provider: Harlan Merritt DPM Performing Location: [facility] Administered by: Harlan Merritt DPM on 04/22/25 12:35 Dose Route Admin Location Dispensed Lot Number Expiration Date [facility] Certified Ski Patroller 1 appl topical 1 appl [id number] PROFESSIONAL DI ethyl chloride 100 % topical spray Performing Provider: Harlan Merritt DPM Performing Location: [facility] Administered by: Harlan Merritt DPM on 04/22/25 12:35 Dose Route Admin Location Dispensed Lot Number Expiration Date [facility] Certified Ski Patroller 1 appl topical 116 mL [id number] [email or web address]. Assessment & Plan Assessment & Plan (1) Ingrown toenail with infection: Code(s): L60.0 - Ingrowing nail Category: Medical Plan: Discussed the etiology of his ingrown nail infection. Recommended a partial nail avulsion which the patient consented to. A medial border left hallux partial nail avulsion was performed along with the excision of the granuloma. Rx Augmentin Due to the bleeding, the patient was recommended holding his aspirin for 1-2 days. He should restart the aspirin tomorrow if there is no bleeding. Postprocedure dressing instructions were given to the patient Follow up in 2 weeks Orders: Orders AMB Debridement/Avulsion Podiatry Today L60.0 - Ingrowing nail Medications: New amoxicillin-pot clavulanate 875-125 mg Take one tablet with food twice a day 1 tab PO BID 10 tabs 1RF left foot cellulitis Coding Level of Care Code New Pt Level 4 (52828) Diagnoses Ingrown toenail with infection L60.0 CPT Codes Skin Debridement - CPT: 33963 Partial/Total nail avulsion (1 nail) ([id number]) Skin Debridement - CPT: 48328 - Chemical Cauterization of Granulation Tissue ([id number]) Time Spent (min) 20
== END 2025-04-22 11:55 | disposition home or self-care (01) ==
LOC: HO.HPODS 10:28
PROVIDERS: PCP Internal Medicine; Visit Provider Student in an Organized Health Care Education/Training Program
DX: L60.0 Ingrowing nail (principal)
CPT/HCPCS: 11730; 17250; 99204

== ENCOUNTER 2025-05-06 09:26 | Outpatient (AMB) | payer OTHER, SELFPAY ==
--- OUTSIDE RECORDS SUMMARY | 2025-05-06 09:31 | XMS_ITS | Encounter Summary ---
Author Organization [employer] Address [address] [place] [address] [address] [place] [address] Care Team Providers Care Diesel Engine Ii Pipe Fitter Name Role Phone Unavailable Primary Care Provider Unavailabl e Encounter Details Date Type Department Care Team (Latest Contact Info) Description 09/23/2018 Abstract [facility] CONVERSIONS Dental, Provider, DDS Social History [...]
--- OUTSIDE RECORDS SUMMARY | 2025-05-06 09:31 | XMS_ITS | Clinical Summary ---
Author Organization [facility] Facility Address [address] [place] [address] Care Team Providers Care Manager Technical Training Name Role Phone Husam Beatty Primary Care Provider [phone] Social History Tobacco Use Types Packs/Day Years [...] PCV) 023 Influenza Vaccine (#1) 2025 Insurance [facility] Medicaid [address] [place] [id number] [facility] Medicaid Care Teams Manager Technical Training Relationship Specialty Start Date End Date Husam Beatty PA [address] [place] [address], [address] [place] [address] PCP - General Physician Rehabilitation Physician 08/30/22
--- OUTSIDE RECORDS SUMMARY | 2025-05-06 09:31 | XMS_ITS | Clinical Summary ---
Demographics Address [address] [facility] [address] [facility] [address] [place] [address] Home Phone Work Phone Email Address Preferred Language en Marital Status Unknown Yazidi Affiliation Unknown Race Other Race Ethnic Group Unknown Author Organization [employer] Address [address] [facility] [address] [place] [address] Care Team Providers Care Capital Equipment Specialist Name Role Phone Unavailable Primary Care [...]
--- NOTE | 2025-05-06 09:44 | A.OFFVIS_ITS ---
Intake Visit Reasons: F/U Infected Ingrown Toenail Intake Note: follow up with infected toe nail still in a little bit of pain no puss for 4 days Allergies No Known Allergies (No Known Allergies*) Allergy (Verified 04/22/25 10:52) HPI HPI F/U Infected Ingrown Toenail: Details: 54 y/o male past medical history of CHF, asthma, [place], CAD s/p cardiac catherization, HTN, HLD, GERD, returns for left ingrown toe nail, s/p partial nail avulsion without matrixectomy. He notes very mild persistent drainage, otherwise no pain redness or swelling. He completed his oral antibiotics. History: He notes a chronic history of ingrown nails, with a procedure on his right foot in the past. However, he noted over the past 1 month his left big toenail infection had severely worsened. He had trialed oral antibiotics (Cephalexin) which did not help. He then started a 2nd antibiotic recently which he states helped relieve some of his symptoms however he still notes drainage and pain and swelling. [facility] Medical History (Updated 04/22/25 @ 09:49 by Paola Church PA-C) Paronychia of great toe, left Chronic combined systolic and diastolic CHF (congestive heart failure) H. 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 No remaining granuloma. Neuro: Protective sensation grossly intact to bilateral lower extremities. MSK: No tenderness on palpation of the medial left hallux Assessment & Plan Assessment & Plan (1) Ingrown toenail with infection: Code(s): L60.0 - Ingrowing nail Category: Medical Plan: * He was instructed on proper local hygiene and care * It was explained that the ingrown nail can return. He was instructed to return to the clinic if there are any new concerns or signs of an ingrown, prior to any infections so he can undergo chemical matricectomy. * The patient completed his oral course of antibiotics. There are no further signs of infection. No indication for further antibiotics at this point. * Follow up as needed Coding Level of Care Code Est Pt Level 3 (19265) Diagnoses Ingrown toenail with infection L60.0 Time Spent (min) 20
== END 2025-05-06 10:10 | disposition home or self-care (01) ==
LOC: HO.HPODS 09:26
PROVIDERS: PCP Internal Medicine; Visit Provider Student in an Organized Health Care Education/Training Program
DX: L60.0 Ingrowing nail (principal)
CPT/HCPCS: 99213

== ENCOUNTER → 2025-05-06 09:26 | Outpatient (BNVA) | payer OTHER, SELFPAY | PROVIDERS: PCP Internal Medicine; Visit Provider Student in an Organized Health Care Education/Training Program | DX: L60.0 Ingrowing nail (principal) | CPT/HCPCS: 99212 ==